=== PATIENT | male | born 1960 | race Caucasian/White ===

== ENCOUNTER 2023-05-11 08:28 | Outpatient (REF) | payer OTHER, SELFPAY ==
--- NOTE | ~2023-05-11 | XR_ITS ---
EXAMINATION: XR KNEE, LEFT XR KNEE AP STANDING CLINICAL INFORMATION: Pain. COMPARISON: None available. TECHNIQUE: Four views of the left knee. AP bilateral standing view of the knees was obtained. FINDINGS: The lateral and medial joint space compartment of the right knee are well-maintained. There is minimal peripheral osteophyte formation of the lateral right tibial plateau. The lateral, medial and patellofemoral joint space compartments of the left knee are well-maintained. There is are small peripheral osteophytes of the upper and lower articular surfaces of the patella. No fracture, dislocation or joint effusion is seen. There is no foreign body. No significant varus or valgus configuration is seen bilaterally. XR/XR knee standing BI IMPRESSION: 1. There is minimal osteoarthritic change of the lateral joint space compartment of the right knee. 2. There is mild osteoarthritic change of the left patellofemoral compartment. 3. No fracture or dislocation is seen. 4. There is no significant left knee joint effusion. 5. No significant varus or valgus configuration is seen bilaterally.
--- NOTE | ~2023-05-11 | XR_ITS ---
EXAMINATION: XR KNEE, LEFT XR KNEE AP STANDING CLINICAL INFORMATION: Pain. COMPARISON: None available. TECHNIQUE: Four views of the left knee. AP bilateral standing view of the knees was obtained. FINDINGS: The lateral and medial joint space compartment of the right knee are well-maintained. There is minimal peripheral osteophyte formation of the lateral right tibial plateau. The lateral, medial and patellofemoral joint space compartments of the left knee are well-maintained. There is are small peripheral osteophytes of the upper and lower articular surfaces of the patella. No fracture, dislocation or joint effusion is seen. There is no foreign body. No significant varus or valgus configuration is seen bilaterally. XR/XR knee LT 2V IMPRESSION: 1. There is minimal osteoarthritic change of the lateral joint space compartment of the right knee. 2. There is mild osteoarthritic change of the left patellofemoral compartment. 3. No fracture or dislocation is seen. 4. There is no significant left knee joint effusion. 5. No significant varus or valgus configuration is seen bilaterally.
== END 2023-05-11 08:29 | disposition home or self-care (01) ==
LOC: HO.HOSX 08:28
PROVIDERS: Visit Provider Orthopaedic Surgery
DX: M17.12 Unilateral primary osteoarthritis, left knee (principal)
CPT/HCPCS: 20610; 73560; 73565; J1100

== ENCOUNTER 2023-05-11 08:34 | Outpatient (AMB) | payer OTHER, SELFPAY ==
--- NOTE | 2023-05-11 08:24 | MHC.OFFVIS ---
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 Patient reports that his left knee has been bothering him for about the last 8-9 months. He explains that both of his knees are bothering him but left is worse than right. He was seen at [facility] about 3 months ago, where he had a cortisone injection done. This injections was not helpful. His pain is felt on the medial aspect of the knee. He feels popping, clicking and the knee is giving way. His primary concern is that the knee is giving out and causing falls. 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 He complains of pain with daily activity, localized to the medial aspect of his knee. His pain is worse with using stairs, and his knee occasionally gives way on him. He says he has fallen several times because of his knees. His most recent fall was ~2 months ago, and he says he fell while on the stairs, landing flat onto his knee. He says his pain has been present for ~9 months now in his left knee. His right knee pain started only a few months ago. He has been seen at the [facility] in 01/2023 for a left knee injection, which he says was not helpful. He was last seen ~6 years ago for adductor tendon injury in his left hip [facility] Social History (Updated 05/11/23 @ 08:48 by Delmi Mcwilliams [facility]) Patient Tobacco Use Status: Never used Tobacco Current occupational status: employed Current occupation: [employer] Review of Systems Const All systems reviewed & are unremarkable except as noted in HPI and below Physical Exam Const General: no acute distress, alert and awake Orientation/consciousness: patient oriented x3 HEENT Head: Yes normocephalic and Yes atraumatic Eyes EOM: EOMs intact bilaterally Resp Effort & Inspection: normal respiratory effort and able to speak in complete sentences Cardio Jugular venous distension: no JVD Skin General skin exam: turgor normal Rashes: no rashes Neuro General: patient oriented x3 Extrem Other: Left Knee: Mild effusion + Lana's TTP medial joint line Psych Appearance: grossly normal Affect: normal affect Attitude: cooperative Office Procedures Joint Injection/Drain Joint Injection/Drain Details: Injected 1 mL of Decadron and 3 mL 1% lidocaine and 3 mL of 0.25% Marcaine. Site was prepped using aseptic technique. Patient tolerated the procedure well. Primary Site: left knee Approach Used: anterolateral Coding 88759 - Large joint Procedure code (CPT) selection complete Results Reviewed Results Reviewed: 05/11/23 09:06 BUPivacaine MPF 0.25 % [Sensorcaine-MPF 0.25% 10 ML] 10 ml .ROUTE .STK-MED ONE Lidocaine HCl 2 % MPF [Xylocaine 2 % MPF] 5 ml .ROUTE .STK-MED ONE dexAMETHasone sod phosphate [Decadron] 4 mg .ROUTE .STK-MED ONE I personally reviewed relevant radiographs. Mild-moderate left knee tricompartmental OA Assessment & Plan Assessment & Plan (1) Osteoarthritis of left knee: Code(s): M17.12 - Unilateral primary osteoarthritis, left knee Plan: This is a 62 year old man with mil- moderate tricompartmental left knee OA on xray. Currnetly he has sweeling and catching and sharp medial sided knee pain that has not responded to injections, activity modification, NSAIDs. I recommend an MRI given his symptoms. He has pain with daily activity, worse with using stairs, and a hx of several falls from his knee giving way. He found no relief from injections at an outside clinic, ambulates with an assistive cane, and feels frustrated by his limitations . I discussed his diagnosis and treatment options. I injected his left knee today, which he tolerated well, and ordered an MRI. He will follow up when completed for review. (2) Left knee pain: Code(s): M25.562 - Pain in left knee Plan Scribed for Yusef Mckeon MD by Adams Foy, senior medical transcriptionist, on 05/11/23 at 9:05 AM, EST. Orders: Orders XR knee standing BI Today M25.569 - Pain in unspecified knee MR knee LT wo con Today M25.462 - Effusion, left knee XR knee LT 2V Today M25.569 - Pain in unspecified knee Coding Level of Care Code New Pt Level 4 (47579) Diagnoses Osteoarthritis of left knee M17.12 Left knee pain M25.562 CPT Codes Coding - 62727 Large joint: 24182 - Large joint ([id number])
== END 2023-05-11 09:27 | disposition home or self-care (01) ==
PROVIDERS: PCP Internal Medicine; Visit Provider Orthopaedic Surgery
DX: M17.12 Unilateral primary osteoarthritis, left knee (principal)
CPT/HCPCS: 20610; 99204

== ENCOUNTER 2023-05-26 10:46 | Outpatient (AMB) | payer OTHER, SELFPAY ==
--- NOTE | 2023-05-26 10:55 | A.OFFVIS_ITS ---
Intake Vital Signs 05/26/23 10:57 Height 5 ft 9 in Weight 235 lb BMI 34.7 Intake Visit Reasons: OV - Left Knee MRI Review Intake Note: Jason is a 62 year old male who presents today for an MRI review of his left knee. last injected on 05/11/23. Patient reports that his knee is feeling worse. Allergies acetaminophen [Percocet] Allergy (Unknown, Verified 05/26/23 10:56) Unknown oxycodone [Percocet] Allergy (Unknown, Verified 05/26/23 10:56) Unknown sulfa Allergy (Unknown, Uncoded 05/26/23 10:56) Unknown HPI OV - Left Knee MRI Review HPI Details Jason is a 62 year old man who presents for an MRI review of his left knee pain. He continues to complain of pain with daily activity, localized to the medial aspect of his knee. His pain is worse with using stairs, and his knee occasionally gives way on him. He says he has fallen several times because of his knees. His most recent fall was ~6 weeks ago, and he says he fell while on the stairs, landing flat onto his knee. He says his pain has been present since 03/2023. He found no relief from his prior injections and says his knee is now feeling worse . 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 Review of Systems Const All systems reviewed & are unremarkable except as noted in HPI and below Physical Exam Vital Signs: BMI result Body Mass Index 34.7 Const General: no acute distress, alert and awake Orientation/consciousness: patient oriented x3 HEENT Head: Yes normocephalic and Yes atraumatic Eyes EOM: EOMs intact bilaterally Resp Effort & Inspection: normal respiratory effort and able to speak in complete sentences Cardio Jugular venous distension: no JVD Skin General skin exam: turgor normal Rashes: no rashes Neuro General: patient oriented x3 Extrem Other: Left Knee: Mild effusion Sharp TTP over MFC Psych Appearance: grossly normal Affect: normal affect Attitude: cooperative Results Reviewed Results Reviewed: I personally reviewed relevant radiographs & MR images Mild-moderate left knee tricompartmental OA Medial corner medial femoral condyle subarticular fracture MCL proximal partial tear vs sprain Medial meniscus degeneration. No tear detected Full-thickness cartilage loss in the medial tibiofemoral and patellofemoral compartments Small joint effusion Assessment & Plan Assessment & Plan (1) Insufficiency fracture of medial condyle of femur: Code(s): M84.453A - Pathological fracture, unspecified femur, initial encounter for fra cture Plan: This is a 62 year old man with a left MFC insufficiency fracture in a setting of mild- moderate tricompartmental OA. He has swelling, catching, and sharp medial sided knee pain that has not responded to injections, activity modification, NSAIDs. He ambulates with an assistive cane, and feels frustrated by his limitations. I reviewed his MRI with him and discussed treatment options, including surgery. He will likely benefit from a TKA in the future, but this is currently not indicated. I recommend a left knee internal fixation and an unloading brace. I discussed the risks, benefits, and alternatives including, but not limited to, the risk of pain, infection, stiffness, need for further surgery as well as potential medical complications such as blood clots, pulmonary embolism and cardiac complications. I discussed the recovery timeline and process as well as the importance of PT. Jason is a good candidate for this surgery, and he wishes to proceed with this decision. He will speak with Dilcia to schedule this procedure. He wad given a medial unloading brace. (2) Osteoarthritis of left knee: Code(s): M17.12 - Unilateral primary osteoarthritis, left knee Plan Scribed for Yusef Mckeon MD by Adams Foy, medical scientific liaison, on 05/26/23 at 11:20 AM, EST. Coding Level of Care Code Est Pt Level 4 (20679) Diagnoses Insufficiency fracture of medial condyle of femur M84.453A Osteoarthritis of left knee M17.12
[2023-05-26 10:57] VITALS: BMI 34.7
== END 2023-05-26 11:25 | disposition home or self-care (01) ==
PROVIDERS: PCP Internal Medicine; Visit Provider Orthopaedic Surgery
DX: M84.452A Pathological fracture, left femur, initial encounter for fracture (principal); M17.12 Unilateral primary osteoarthritis, left knee
CPT/HCPCS: 99214

== ENCOUNTER → 2023-05-26 10:46 | Outpatient (BNVA) | payer OTHER, SELFPAY | PROVIDERS: PCP Internal Medicine; Visit Provider Orthopaedic Surgery ==

== ENCOUNTER 2023-06-14 10:43 | Day surgery (SDC) | payer OTHER, SELFPAY ==
--- NOTE | 2023-06-13 10:58 | HO.ANESPROP2 ---
Documented by User: Jennifer Almeida NP 06/13/23 10:59 HPI - Anesthesia Eval Consult details Narrative: 62yo M for Left Knee Arthroscopy Subchondroplasty PMFSH Active Problems Active Problems: All Active Problems (Updated 06/13/23 @ 10:00 by Pina Nash RN) Insufficiency fracture of medial condyle of femur (Acute) Left knee pain (Acute) Osteoarthritis of left knee (Acute) Past Medical History Medical History Hypothyroid HTN (hypertension) GERD (gastroesophageal reflux disease) Surgical History Surgical History (Updated 06/14/23 @ 10:56 by Delia Nettles RN) History of thyroid surgery Hx of elbow surgery S/P TURP (status post transurethral resection of prostate) History of carpal tunnel release Hx of neck surgery History of back surgery Social History (Updated 05/11/23 @ 08:48 by Delmi Mcwilliams CMA) Patient Tobacco Use Status: Never used Tobacco Current occupational status: employed 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 Allergies Allergy/AdvReac Type Severity Reaction Status Date / Time acetaminophen [Percocet] Allergy Unknown Unknown Verified 06/14/23 11:02 oxycodone [Percocet] Allergy Unknown Unknown Verified 06/14/23 11:02 sulfa Allergy Unknown Unknown Uncoded 06/14/23 11:02 Home Medications Medication Instructions Recorded Confirmed Last Taken Type allopurinol 300 mg tablet 300 mg PO DAILY 05/11/23 06/14/23 06/14/23 History amlodipine 5 mg-benazepril 10 mg 1 cap PO DAILY 05/11/23 06/14/23 06/14/23 History capsule fexofenadine 180 mg tablet 180 mg PO DAILY 05/11/23 06/14/23 06/14/23 History (Radha Allergy) ibuprofen 800 mg tablet 800 mg PO Q8H 05/11/23 06/14/23 06/11/23 History levothyroxine 200 mcg capsule 200 mcg PO DAILY 05/11/23 06/14/23 06/14/23 History nebivolol 20 mg tablet 20 mg PO DAILY 05/11/23 06/14/23 06/14/23 History omeprazole 40 mg capsule,delayed 40 mg PO DAILY 05/11/23 06/14/23 06/14/23 History release tramadol 50 mg tablet 50 mg PO DAILY 05/11/23 06/14/23 06/10/23 History Exam Exam Date and Time: June 13, [id number] Assessment and Plan Assessment Anesthesia Assessment: Chart Reviewed Documented by User: Jaxon Holman MD 07/06/23 18:10 [facility] Past Medical History Medical History Hypothyroid HTN (hypertension) GERD (gastroesophageal reflux disease) Functional capacity: uses cane/walker Family History Family history of problems with anesthesia: No Surgical History Surgical History (Updated 06/14/23 @ 10:56 by Delia Nettles RN) History of thyroid surgery Hx of elbow surgery S/P TURP (status post transurethral resection of prostate) History of carpal tunnel release Hx of neck surgery History of back surgery History of Problems with Anesthesia: No Social History (Updated 05/11/23 @ 08:48 by Delmi Mcwilliams CMA) Patient Tobacco Use Status: Never used Tobacco Current occupational status: employed 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 Allergies Allergy/AdvReac Type Severity Reaction Status Date / Time acetaminophen [Percocet] Allergy Unknown Unknown Verified 06/14/23 11:02 oxycodone [Percocet] Allergy Unknown Unknown Verified 06/14/23 11:02 sulfa Allergy Unknown Unknown Uncoded 06/14/23 11:02 Home Medications Medication Instructions Recorded Confirmed Last Taken Type allopurinol 300 mg tablet 300 mg PO DAILY 05/11/23 06/14/23 06/14/23 History amlodipine 5 mg-benazepril 10 mg 1 cap PO DAILY 05/11/23 06/14/23 06/14/23 History capsule fexofenadine 180 mg tablet 180 mg PO DAILY 05/11/23 06/14/23 06/14/23 History (Radha Allergy) ibuprofen 800 mg tablet 800 mg PO Q8H 05/11/23 06/14/2323 History levothyroxine 200 mcg capsule 200 mcg PO DAILY 05/11/23 06/14/23 06/14/23 History nebivolol 20 mg tablet 20 mg PO DAILY 05/11/23 06/14/23 06/14/23 History omeprazole 40 mg capsule,delayed 40 mg PO DAILY 05/11/23 06/14/23 06/14/23 History release tramadol 50 mg tablet 50 mg PO DAILY 05/11/23 06/14/23 06/10/23 History Exam Airway Mallampati Class: III Loose/Missing/Broken Teeth: Yes (poor dentition) Assessment and Plan Assessment Anesthesia Assessment: Anesthesia Plan Discussed Final Anesthetic Review Family History of Problems with Anesthesia: No History of Problems with Anesthesia: No NPO: Yes ASA Class: III Final Preanesthetic Review: Meds/Allgs Chart Reviewed, Consent Obtained/Reviewed and Anes Risks/Benef Reviewed Patient Risk: Intermediate Procedure Risk: Intermediate Assessment/Block/Sedation in SS: Assess/Block/Sedation-SS Anesthetic Plan Anesthetic Plan: GA, Regional Block and Agree w/ Assess. and Plan Disposition: Standard PACU
--- NOTE | ~2023-06-14 | FL_ITS ---
EXAMINATION: XR FLUOROSCOPY WITH IMAGES CLINICAL INFORMATION: Left knee some chondroplasty. COMPARISON: None available. TECHNIQUE: Fluoroscopy Supervised By: Dr. Yusef Mckeon. Fluoroscopy Time: 0.2 minutes. Cumulative Dose: 1.37 mGy. DAP: 0.0239 Gycm2. Images: 4. FINDINGS: Images demonstrate surgical instruments projecting over the medial femoral condyle. FL/FL guidance in OR IMPRESSION: Fluoroscopy guidance for orthopedic procedure.
[2023-06-14 10:45] VITALS: BMI 34.7
[2023-06-14] MEDS: Lactated Ringers 1,000 ML 100 ML IVCONT (11:08)
[2023-06-14 11:13] VITALS: BP 171/110; PULSE 71; RESP 16; TEMP 36.3; O2SAT 96
[2023-06-14 15:05] VITALS: BP 147/105; PULSE 79; RESP 15; TEMP 36.2; O2SAT 99
[2023-06-14 15:10] VITALS: BP 131/92; PULSE 85; RESP 20; O2SAT 95
[2023-06-14 15:15] VITALS: BP 143/94; PULSE 79; RESP 18; O2SAT 94
[2023-06-14 15:20] VITALS: BP 138/84; PULSE 80; RESP 16; TEMP 36.1; O2SAT 95
[2023-06-14 15:35] VITALS: PULSE 78; RESP 16; TEMP 36.1; O2SAT 95
--- NOTE | 2023-06-14 16:26 | P.BOP_ITS ---
Brief Operative Note Date of Service: 06/14/23 Pre-op diagnosis: Left knee medial femoral condyle insufficientcy fracture Left knee OA Post-op diagnosis: same Procedure: Internal fixation left MFC Implants: Subchondroplasty boyd PEARSON, Edward Surgeon: Yusef Mckeon MD Was an Solutions Market Consultant used for this Procedure?: Yes Solutions Market Consultant: Clara Back Estimated blood loss (mL): 10 Tourniquet time (min): 40 IV fluids (mL): 800 Pathology: none sent Condition: stable Disposition: PACU
--- NOTE | 2023-06-19 12:59 | W.PM.OPN ---
Operative Note Operative Note Date of Service: 06/14/23 Narrative: Date of Service: 06/14/23 Pre-op diagnosis: Left knee medial femoral condyle insufficiency fracture Left knee OA Post-op diagnosis: same Procedure: Internal fixation left MFC Implants: Subchondroplasty acufill BSM, Edward Surgeon: Yusef Mckeon MD Was an Swimming Pool Cleaner used for this Procedure?: Yes Swimming Pool Cleaner: Clara Back Estimated blood loss (mL): 10 Tourniquet time (min): 40 IV fluids (mL): 800 Pathology: none sent Condition: stable Disposition: PACU Patient was brought to the operating room placed supine on the arthroscopic table and prepped and draped in standard sterile fashion. A time-out was called to identify proper site proper procedure proper surgeon and IV antibiotics per weight were administered. I began by exsanguinating the limb and insufflating tourniquet to 300 mm Hg. Then made a standard anterolateral stab incision. The knee was insufflated with water and 30 degree arthroscope was placed. There was grade 1 fibrillations of the patella but overall suprapatellar pouch was plane and the gutters were clean. I descended into the medial compartment where I made my medial portal under direct visualization. There was were grade 3 and 4 changes medial femoral condyle and medial tibial. I used a combination shaver cautery to fragments and stabilize the damage. ACL was intact and need intervention. Therefore based the made a stab incision supra medially and placed Accufill trocar into the anterolateral aspect. Using biplanar fluoroscopy directed the trocar into the anteromedial most distal aspect of femoral at the location the subchondral insufficiency based on the pre operative MRI. I satisfiedwith the trochant position the acufill BSM was mixed on the back table. I then injected 3 mL into the MFC. The blush was seen plain films and I waited 10 minutes until the solution was dry. The trocar was then removed. There was no extravasation of BSM into the knee as verified by arthroscopic evaluation. Final biplanar radiographs were obtained I was satisfied with the location of the subchondroplasty. I then removed all instrumentation and closed the portals with skin glue. 25 mL of 2% Marcaine with epinephrine was injected into the joint and the surrounding soft tissues. Patient was then placed in sterile dressing extubated brought recovery room stable condition. There were no known complications.
== END 2023-06-14 16:20 | disposition home or self-care (01) ==
LOC: HO.SSS 10:43
PROVIDERS: PCP Internal Medicine; Visit Provider Orthopaedic Surgery
PROC: (CPT 0707T; principal; 2023-06-14 13:00)
DX: M84.352A Stress fracture, left femur, initial encounter for fracture (principal); M17.12 Unilateral primary osteoarthritis, left knee; I10 Essential (primary) hypertension; K21.9 Gastro-esophageal reflux disease without esophagitis; Z79.899 Other long term (current) drug therapy
CPT/HCPCS: 0707T; C1713; J0171; J0690; J1100; J2250; J2405; J2795; J3010

== ENCOUNTER → 2023-06-14 10:43 | Outpatient (BNV) | payer OTHER, SELFPAY | PROVIDERS: PCP Internal Medicine; Visit Provider Orthopaedic Surgery | DX: M84.462A Pathological fracture, left tibia, initial encounter for fracture (principal); M17.12 Unilateral primary osteoarthritis, left knee | CPT/HCPCS: 29855; 29877 ==

== ENCOUNTER 2023-06-20 13:02 | Outpatient (AMB) | payer OTHER, SELFPAY ==
--- NOTE | 2023-06-20 13:32 | A.OFFVIS_ITS ---
Intake Intake Visit Reasons: PO-Lt Knee w/Internal Fixation 06/14 NE Intake Note: Jason is a 62 year old male who presents today for a post op appointment s/p left knee w/ Internal Fixation 06/14/23 NE. Patient reports he is doing okay but having discomfort. Allergies acetaminophen [Percocet] Allergy (Unknown, Verified 06/14/23 11:02) Unknown oxycodone [Percocet] Allergy (Unknown, Verified 06/14/23 11:02) Unknown sulfa Allergy (Unknown, Uncoded 06/14/23 11:02) Unknown HPI PO-Lt Knee w/Internal Fixation 06/14 NE HPI Details 62-year-old male who presents in the off ice today 6 days status post left knee internal fixation left MFC, which was performed on 06/14/[address] Mckeon. The patient reports he is doing okay but does have some discomfort. 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 Sutures intact. ROM is 20-45 degrees. NVI. Assessment & Plan Assessment & Plan (1) Insufficiency fracture of medial condyle of femur: Code(s): M84.453A - Pathological fracture, unspecified femur, initial encounter for fracture (2) Osteoarthritis of left knee: Code(s): M17.12 - Unilateral primary osteoarthritis, left knee Plan Mr. Olea is a 62-year-old male who presents in the office today 6 days status post left knee internal fixation left MFC, which was performed on 06/14/[address] Mckeon. The patient reports he is doing okay but does have some discomfort. Sutures were removed and steri-stripes were applied. The patient may begin to weight bear as tolerated with the use of crutches. He may begin to wean off the crutches at this time. He will work with physical therapy on gentle ROM and weight bearing activities. I will send in a refill of his hydrocodone- acetaminophen 5-325 mg PO Q4-6H PRN. Follow up will be in [address] Mckeon, or sooner if needed. Orders: Orders PT Evaluation and Treatment Today M17.12 - Unilateral primary osteoarthritis, le ft knee, M25.562 - Pain in left knee, M84.453A - Pathological fracture, unspecified femur, initial encounter for fracture Medications: Changed From hydrocodone-acetaminophen 5-325 mg Partial Fill upon patient request. 1 tab PO Q4-6H 7 days PRN 42 tabs 0RF pain (scale score 4-6) To hydrocodone-acetaminophen 5-325 mg Partial Fill upon patient request. 2 tabs PO Q4-6H PRN 42 tabs 0RF pain (scale score 4-6) 7 days Patient Instructions: Scribed for Clara Back PA-C by Nupur Fatima manager medical, on 06/20/2023 at 1:40 pm, EST. Coding Level of Care Code Global (80618) Diagnoses Insufficiency fracture of medial condyle of femur M84.453A Osteoarthritis of left knee M17.12
== END 2023-06-20 13:53 | disposition home or self-care (01) ==
PROVIDERS: PCP Internal Medicine; Visit Provider Physician Assistant
DX: M84.453A Pathological fracture, unspecified femur, initial encounter for fracture (principal); M17.12 Unilateral primary osteoarthritis, left knee
CPT/HCPCS: 99024

== ENCOUNTER → 2023-06-20 13:02 | Outpatient (BNVA) | payer OTHER, SELFPAY | PROVIDERS: PCP Internal Medicine; Visit Provider Physician Assistant | DX: M84.453A Pathological fracture, unspecified femur, initial encounter for fracture (principal); M25.562 Pain in left knee; M17.12 Unilateral primary osteoarthritis, left knee ==

== ENCOUNTER 2023-07-12 12:00 | Outpatient (RCR) | payer OTHER, SELFPAY ==
--- NOTE | 2023-07-05 10:20 | MHC.PT.EP ---
[facility] [place] Office [place] Office [place] Office [address] Paty Sutton [address] [phone] F: [phone] F: [phone] F: [phone] F: [phone] Physical Therapy Plan of Care Date of Evaluation: 06/30/23 Date of Surgery: 06/14/23 Diagnosis: s/p L knee subchondroplasty Assessment: Pt is a 62yo male presenting 2 weeks s/p R knee surgery. Skilled PT indicated to reduce pain/edema, promote full knee AROM and strength, and maximize stability of knee to return to PLOF. Pt in agreement with POC and is motivated to return to work. Frequency and Duration: The patient will be seen 2x/week x 4 weeks Short Term Goals: 1. In 2 weeks patient will demonstrate full knee extension. 2. In 2 weeks, normal heel first initial contact ambulating with LRD. 3. In 2 weeks, increase knee flexion ROM to 120 degrees to improve ability to complete transfers. Medical Communication Specialist Goals: 1. Pt will be able to complete reciprocal pattern up and down 6 inch step. 2. In 4 weeks, patient will complete sit<>stand from 20 inch height chair without use of UE's, and equal use of LE's. 3. Improve score of LEFS by 15 points in 4 weeks, indicating improved functional mobility. Treatment Plan: Modalities to reduce pain, spasms and effusion. Manual therapy to restore motion and function. Therapeutic exercise to improve strength and flexibility. Neuromuscular re-education for posture and balance. Therapeutic activities to return to functional activities of daily living. Electronically signed by: Arabella Desouza PT, DPT Please sign and return to therapist. Thank you for your referral.
--- NOTE | 2023-09-12 11:03 | MHC.PT.DC ---
[facility] [place] Office [place] Office [place] Office [address] Paty Sutton [address] [phone] F: [phone] F: [phone] F: [phone] F: [phone] Physical Therapy Discharge Report Diagnosis: s/p L knee subchondroplasty Date of Surgery: 06/14/23 Date of Evaluation: 06/30/23 Date of Discharge: 09/12/23 Treatments to Date: 2 Cancellations to Date: 2 No Shows to Date: Discharge Status: Visit Non-compliance Discharge Summary: Pt referred to PT following L knee subchondroplasty. Pt's unable to climb stairs to be able to return to work. However, pt did not f/u with additional appointments after 2nd visit. D/C at this time due to attendance policy and loss of contact. Electronically signed by: Arabella Desouza PT, DPT Please sign and return to therapist. Thank you for your referral.
== END 2023-09-12 11:04 | disposition home or self-care (01) ==
LOC: HO.PT 12:00
PROVIDERS: PCP Internal Medicine; Visit Provider Physician Assistant
DX: M17.12 Unilateral primary osteoarthritis, left knee (principal); Z98.890 Other specified postprocedural states
CPT/HCPCS: 97110; 97116; 97162

== ENCOUNTER 2023-07-20 11:30 | Outpatient (AMB) | payer OTHER, SELFPAY ==
--- NOTE | 2023-07-20 11:33 | MHC.OFFVIS ---
Intake Vital Signs 07/20/23 11:35 Height 5 ft 9 in Weight 235 lb BMI 34.7 Intake Visit Reasons: PO-Lt Knee w/Internal Fixation 06/14 NE Intake Note: Jason is a 62 year old male who presents today for a post op appointment s/p left knee w/ Internal Fixation 06/14/23 NE. Patient reports that he is doing better today than it was over the last week. His grandson fell on the leg which has aggravated the pain. He is concerned that there is damage to the leg. Allergies acetaminophen [Percocet] Allergy (Unknown, Verified 06/14/23 11:02) Unknown oxycodone [Percocet] Allergy (Unknown, Verified 06/14/23 11:02) Unknown sulfa Allergy (Unknown, Uncoded 06/14/23 11:02) Unknown HPI PO-Lt Knee w/Internal Fixation 06/14 NE HPI Details Jason is a 62 year old man who presents ~5 weeks S/P left knee internal fixation C. He says he is doing well, but has some increased pain recently. He says his grandson fell onto his knee ~1 week ago, but his pain has been slowly improving with time. He says he was feeling well prior to this incident, and he has been attending PT. Now he has pain with walking when not using his crutches, so he continues to use them at this time. He has some concerns with his ability to perform daily activities still, including returning to work. He has been taking Ibuprofen. He complains of some right knee pain & weakness and would like an injection today if possible. [facility] Medical History Hypothyroid HTN (hypertension) GERD (gastroesophageal reflux disease) Surgical History (Updated 06/14/23 @ 10:56 by Delia Nettles RN) History of thyroid surgery Hx of elbow surgery S/P TURP (status post transurethral resection of prostate) History of carpal tunnel release Hx of neck surgery History of back surgery Social History (Updated 05/11/23 @ 08:48 by Delmi Mcwilliams CMA) Comment: . 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 Review of Systems Const All systems reviewed & are unremarkable except as noted in HPI and below Physical Exam Vital Signs: BMI result Body Mass Index 34.7 Const General: no acute distress, alert and awake Orientation/consciousness: patient oriented x3 HEENT Head: Yes normocephalic and Yes atraumatic Eyes EOM: EOMs intact bilaterally Resp Effort & Inspection: normal respiratory effort and able to speak in complete sentences Cardio Jugular venous distension: no JVD Skin General skin exam: turgor normal Rashes: no rashes Neuro General: patient oriented x3 Extrem Other: medial compartment ttp focal tenderness over MFC no effusion full rom Psych Appearance: grossly normal Affect: normal affect Attitude: cooperative Results Reviewed Results Reviewed: I personally reviewed relevant radiographs Mild-moderate left knee tricompartmental OA Assessment & Plan Assessment & Plan (1) Insufficiency fracture of medial condyle of femur: Code(s): M84.453A - Pathological fracture, unspecified femur, initial encounter for fracture Plan: Insufficiency fracture iof the MFC in the setting of moderate-severe knee OA. Subchondroplasty internal fixation so far has not been helpful although he feels he was improving until a recent injury when a grandchild jumped on his extended leg,. He uses one crutch when he leaves the house. I recommend PT for quad activation. Our goal is rtw in 6 weeks. (2) Osteoarthritis of left knee: Code(s): M17.12 - Unilateral primary osteoarthritis, left knee Plan Scribed for Yusef Mckeon MD by Adams Foy, medical health researcher, on 07/20/23 at 11:30 AM, EST. Coding Level of Care Code Global (51659) Diagnoses Insufficiency fracture of medial condyle of femur M84.453A Osteoarthritis of left knee M17.12
[2023-07-20 11:35] VITALS: BMI 34.7
== END 2023-07-20 12:04 | disposition home or self-care (01) ==
PROVIDERS: PCP Internal Medicine; Visit Provider Orthopaedic Surgery
DX: M84.453A Pathological fracture, unspecified femur, initial encounter for fracture (principal); M17.12 Unilateral primary osteoarthritis, left knee
CPT/HCPCS: 99024

== ENCOUNTER → 2023-07-20 11:30 | Outpatient (BNVA) | payer OTHER, SELFPAY | PROVIDERS: PCP Internal Medicine; Visit Provider Orthopaedic Surgery | DX: M84.452D Pathological fracture, left femur, subsequent encounter for fracture with routine healing (principal); M17.12 Unilateral primary osteoarthritis, left knee | CPT/HCPCS: J0665; J1100 ==

== ENCOUNTER 2023-08-31 10:06 | Outpatient (AMB) | payer OTHER, SELFPAY ==
--- NOTE | 2023-08-31 07:51 | A.OFFVIS_ITS ---
Intake Intake Visit Reasons: PO-Lt Knee w/Internal Fixation 06/14/23 NE Intake Note: Jason is a 62 year old male who presents today for a post op appointment s/p left knee w/ Internal Fixation 06/14/23 NE. Goal of RTW of next week. He feels some pain, he denies injury. Allergies acetaminophen [Percocet] Allergy (Unknown, Verified 08/31/23 10:26) Unknown oxycodone [Percocet] Allergy (Unknown, Verified 08/31/23 10:26) Unknown sulfa Allergy (Unknown, Uncoded 08/31/23 10:26) Unknown Medication List - Last Reconciled 08/31/23 by Aminata Peterson RN allopurinol 300 mg PO DAILY amlodipine-benazepril 5-10 mg 1 cap PO DAILY fexofenadine (Radha Allergy) 180 mg PO DAILY hydrocodone-acetaminophen 5-325 mg 2 tabs PO Q4-6H PRN 7 days ibuprofen 800 mg PO Q8H levothyroxine 200 mcg PO DAILY nebivolol 20 mg PO DAILY omeprazole 40 mg PO DAILY tramadol 50 mg PO DAILY HPI PO-Lt Knee w/Internal Fixation 06/14/23 NE HPI Details Jason is a 62 year old man who presents ~10 weeks S/P left knee internal fixation MFC. He says he is doing better than before, but he still has some occasional pain. he denies any new injury and says he is walking better than he was before as well. He continues to attend PT. He would like to discuss work restrictions, his goal was to RTW next week. Feels a little better than before surgery. Still with pain in medial side but not sharp. Wants to go back to work. Having difficultyu going up and down stairs [facility] Medical History Hypothyroid HTN (hypertension) GERD (gastroesophageal reflux disease) Surgical History (Updated 06/14/23 @ 10:56 by Delia Nettles RN) History of thyroid surgery Hx of elbow surgery S/P TURP (status post transurethral resection of prostate) History of carpal tunnel release Hx of neck surgery History of back surgery Social History (Updated 05/11/23 @ 08:48 by Delmi A Borsari, DIGITAL SALES ASSISTANT) Comment: . 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 Review of Systems Const All systems reviewed & are unremarkable except as noted in HPI and below Physical Exam Const General: no acute distress, alert and awake Orientation/consciousness: patient oriented x3 HEENT Head: Yes normocephalic and Yes atraumatic Eyes EOM: EOMs intact bilaterally Resp Effort & Inspection: normal respiratory effort and able to speak in complete sentences Cardio Jugular venous distension: no JVD Skin General skin exam: turgor normal Rashes: no rashes Neuro General: patient oriented x3 Psych Appearance: grossly normal Affect: normal affect Attitude: cooperative Office Procedures Joint Injection/Drain Joint Injection/Drain Details: Injected 1 mL of Decadron and 3 mL 1% lidocaine and 3 mL of 0.25% Marcaine. Site was prepped using aseptic technique. Patient tolerated the procedure well. Primary Site: left knee Approach Used: anterolateral Coding - Large joint Procedure code (CPT) selection complete Assessment & Plan Assessment & Plan (1) Insufficiency fracture of medial condyle of femur: Code(s): M84.453A - Pathological fracture, unspecified femur, initial encounter for fracture Plan: Doing well. Continue activity as tolerated. Wearing unloading brace which is helpful. May rtw without restrictions (2) Osteoarthritis of left knee: Code(s): M17.12 - Unilateral primary osteoarthritis, left knee Plan: Left knee steroid injection today. F/u as needed If injection not helpful will call and we can do gel. Plan Prepared for Yusef Mckeon MD by Adams Foy, medical support assistant, on 08/31/23 at 10:11 AM, EST. Coding Level of Care Code Global (59601) Diagnoses Insufficiency fracture of medial condyle of femur M84.453A Osteoarthritis of left knee M17.12 CPT Codes Coding - Large joint: 23415 - Large joint ([id number])
== END 2023-08-31 10:54 | disposition home or self-care (01) ==
PROVIDERS: PCP Internal Medicine; Visit Provider Orthopaedic Surgery
DX: M17.12 Unilateral primary osteoarthritis, left knee (principal); M84.453D Pathological fracture, unspecified femur, subsequent encounter for fracture with routine healing
CPT/HCPCS: 20610; 99024

== ENCOUNTER → 2023-08-31 10:06 | Outpatient (BNVA) | payer OTHER, SELFPAY | PROVIDERS: PCP Internal Medicine; Visit Provider Orthopaedic Surgery | DX: M17.12 Unilateral primary osteoarthritis, left knee (principal); M84.453D Pathological fracture, unspecified femur, subsequent encounter for fracture with routine healing | CPT/HCPCS: 20610; J0665; J1100 ==

== ENCOUNTER 2023-12-08 08:52 | Outpatient (REF) | payer OTHER, SELFPAY ==
--- NOTE | ~2023-12-08 | XR_ITS ---
EXAMINATION: XR KNEE, LEFT CLINICAL INFORMATION: Reason for Exam M25.569 - Pain in unspecified knee COMPARISON: Knee radiographs 05/03/2023 TECHNIQUE: 2 views of the left knee, one view of the bilateral knees standing FINDINGS: No acute fracture or dislocation. Moderate osteoarthritis of the left knee with loss of medial compartment joint space similar to prior and small patellofemoral compartment osteophytes with quadriceps tendon enthesopathy.. Mild osteoarthritis of the right knee with small lateral compartment osteophytes similar to prior. Small left joint effusion. Soft tissues are unremarkable. XR/XR knee LT 3V IMPRESSION: Moderate osteoarthritis of the left knee similar to prior. Small left joint effusion.
== END 2023-12-08 08:53 | disposition home or self-care (01) ==
LOC: HO.HOSX 08:52
PROVIDERS: Visit Provider Orthopaedic Surgery
DX: M17.12 Unilateral primary osteoarthritis, left knee (principal)
CPT/HCPCS: 20610; 73562; J0665; J1100

== ENCOUNTER 2023-12-08 09:04 | Outpatient (AMB) | payer OTHER, SELFPAY ==
--- NOTE | 2023-12-08 09:09 | MHC.OFFVIS ---
Vital Signs 12/08/23 09:10 Height 5 ft 9 in Weight 235 lb BMI 34.7 Intake Visit Reasons: ov-Lt Knee w/Internal Fixation 06/14/23 NE LVM Intake Note: Jason is a 62 year old male who presents today for a post op appointment s/p left knee w/ Internal Fixation 06/14/23 NE. At his last visit on 08/31/23 his left knee was injected, if it is not helpful we can consider gel. Patient reports that this last injection was note very helpful. He would like to know more about gel injections. Allergies acetaminophen [Percocet] Allergy (Unknown, Verified 12/08/23 09:10) Unknown oxycodone [Percocet] Allergy (Unknown, Verified 12/08/23 09:10) Unknown sulfa Allergy (Unknown, Uncoded 12/08/23 09:10) Unknown HPI HPI ov-Lt Knee w/Internal Fixation 06/14/23 NE LVM: Details: Jason is a 62 year old male who presents today for a post op appointment s/p left knee w/ Internal Fixation 06/14/23 NE. At his last visit on 08/31/23 his left knee was injected, if it is not helpful we can consider gel. Patient reports that this last injection was note very helpful. He would like to know more about gel injections. [facility] Medical History Hypothyroid HTN (hypertension) GERD (gastroesophageal reflux disease) Surgical History History of thyroid surgery Hx of elbow surgery S/P TURP (status post transurethral resection of prostate) History of carpal tunnel release Hx of neck surgery History of back surgery Social History Comment: . Patient Tobacco Use Status: Never used Tobacco Current occupational status: employed Current occupation: [employer] Physical Exam Vital Signs: BMI result Body Mass Index 34.7 Extrem Other: medial and anterior compartment ttp with mild effusion Office Procedures Joint Injection/Drain Joint Injection/Drain Details: Injected 1 mL of Decadron and 3 mL 1% lidocaine and 3 mL of 0.25% Marcaine. Site was prepped using aseptic technique. Patient tolerated the procedure well. Primary Site: left knee Approach Used: anterolateral Coding - Large joint Procedure code (CPT) selection complete Results Reviewed Results Reviewed: I personally reviewed relevant radiographs. Moderate tricompartmental left knee OA Assessment & Plan Assessment & Plan (1) Osteoarthritis of left knee: Code(s): M17.12 - Unilateral primary osteoarthritis, left knee Category: Medical Plan: I injected the left knee today. We discussed gel but steroid working for him. f/u 3 months Orders: Orders XR knee standing BI Today M25.569 - Pain in unspecified knee Coding Level of Care Code Est Pt Level 3 (96332) Diagnoses Osteoarthritis of left knee M17.12 CPT Codes Coding - Large joint: 52287 - Large joint ([id number])
[2023-12-08 09:10] VITALS: BMI 34.7
== END 2023-12-08 10:22 | disposition home or self-care (01) ==
PROVIDERS: PCP Internal Medicine; Visit Provider Orthopaedic Surgery
DX: M17.12 Unilateral primary osteoarthritis, left knee (principal)
CPT/HCPCS: 20610; 99213

== ENCOUNTER 2024-03-08 09:22 | Outpatient (AMB) | payer OTHER, SELFPAY ==
--- NOTE | 2024-03-08 09:30 | A.OFFVIS_ITS ---
Vital Signs 03/08/24 09:32 Height 5 ft 9 in Weight 235 lb BMI 34.7 Intake Visit Reasons: ov-Lt Knee injection-last inj. 12/08/23 Intake Note: Jason is a 62 year old male who presents today for a post op appointment s/p left knee w/ Internal Fixation 06/14/23 NE. At his last visit on 12/08/23 which he reports was mildly helpful. He is interested in repeating injection today. At this point he is just looking to push off surgery as long as possible Allergies acetaminophen [Percocet] Allergy (Unknown, Verified 03/08/24 09:34) Unknown oxycodone [Percocet] Allergy (Unknown, Verified 03/08/24 09:34) Unknown sulfa Allergy (Unknown, Uncoded 03/08/24 09:34) Unknown HPI HPI ov-Lt Knee injection-last inj. 12/08/23: Details: Jason is a 62 year old male who presents today for a post op appointment s/p left knee w/ Internal Fixation 06/14/23 NE. At his last visit on 12/08/23 which he reports was mildly helpful. He is interested in repeating injection today. At this point he is just looking to push off surgery as long as possible . [facility] Medical History Hypothyroid HTN (hypertension) GERD (gastroesophageal reflux disease) Surgical History History of thyroid surgery Hx of elbow surgery S/P TURP (status post transurethral resection of prostate) History of carpal tunnel release Hx of neck surgery History of back surgery Social History Comment: . Patient Tobacco Use Status: Never used Tobacco Current occupational status: employed Current occupation: [employer] Physical Exam Vital Signs: BMI result Body Mass Index 34.7 Extrem Other: medial and anterior compartment ttp with mild effusion Office Procedures Joint Injection/Drain Joint Injection/Drain Details: Injected 1 mL of Decadron and 3 mL 1% lidocaine and 3 mL of 0.25% Marcaine. Site was prepped using aseptic technique. Patient tolerated the procedure well. Primary Site: left knee Approach Used: anterolateral Coding - Large joint Procedure code (CPT) selection complete Assessment & Plan Assessment & Plan (1) Osteoarthritis of left knee: Code(s): M17.12 - Unilateral primary osteoarthritis, left knee Category: Medical Plan: I injected his left knee. He uses a cane to ambulate and has good and bad days. Wante to try to make it to next spring prior to TKA. F/u 3 mo Coding Level of Care Code Est Pt Level 3 (56205) Diagnoses Osteoarthritis of left knee M17.12 CPT Codes Coding - Large joint: 94991 - Large joint ([id number])
[2024-03-08 09:32] VITALS: BMI 34.7
== END 2024-03-08 09:57 | disposition home or self-care (01) ==
PROVIDERS: PCP Internal Medicine; Visit Provider Orthopaedic Surgery
DX: M17.12 Unilateral primary osteoarthritis, left knee (principal)
CPT/HCPCS: 20610; 99213

== ENCOUNTER → 2024-03-08 09:22 | Outpatient (BNVA) | payer OTHER, SELFPAY | PROVIDERS: PCP Internal Medicine; Visit Provider Orthopaedic Surgery | DX: M17.12 Unilateral primary osteoarthritis, left knee (principal) | CPT/HCPCS: 20610; J0665; J1100 ==

== ENCOUNTER 2024-06-14 09:18 | Outpatient (AMB) | payer OTHER, SELFPAY ==
[2024-06-14 09:20] VITALS: BMI 34.7
--- NOTE | 2024-06-14 09:20 | MHC.OFFVIS ---
Vital Signs 06/14/24 09:20 Height 5 ft 9 in Weight 235 lb BMI 34.7 Intake Visit Reasons: ov-Lt Knee injection-last inj. 03/08/24 Intake Note: Jason is a 62 year old male who presents today for a post op appointment s/p left knee w/ Internal Fixation 06/14/23. At his last visit on 03/08/24 his left knee was injected. This injection was mildly helpful, he would like to repeat injection today as he is trying to hold off on TKA until Spring. Allergies acetaminophen [Percocet] Allergy (Unknown, Verified 06/14/24 09:25) Unknown oxycodone [Percocet] Allergy (Unknown, Verified 06/14/24 09:25) Unknown sulfa Allergy (Unknown, Uncoded 06/14/24 09:25) Unknown HPI HPI ov-Lt Knee injection-last inj. 03/08/24: Details: Jason is a 62 year old male who presents today for a post op appointment s/p left knee w/ Internal Fixation 06/14/23. At his last visit on 03/08/24 his left knee was injected. This injection was mildly helpful, he would like to repeat injection today as he is trying to hold off on TKA until Spring. [facility] Medical History Hypothyroid HTN (hypertension) GERD (gastroesophageal reflux disease) Surgical History History of thyroid surgery Hx of elbow surgery S/P TURP (status post transurethral resection of prostate) History of carpal tunnel release Hx of neck surgery History of back surgery Social History Comment: . 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 Site was prepped using aseptic technique. Patient tolerated the procedure well. Approach Used: anterolateral Shoulders, Hips, Knees, Knee Large Joint Injection : Left Knee Coding Procedure code (CPT) selection complete Assessment & Plan Assessment & Plan (1) Osteoarthritis of left knee: Code(s): M17.12 - Unilateral primary osteoarthritis, left knee Category: Medical Plan: Injected left knee. F/u in August to discuss TKA. Sooner if wants gel Coding Level of Care Code Est Pt Level 3 (55740) Diagnoses Osteoarthritis of left knee M17.12 CPT Codes Shoulders, Hips, Knees, - Knee Large Joint Injection : Left Knee ([id number])
== END 2024-06-14 09:36 | disposition home or self-care (01) ==
LOC: HO.HOS 09:18
PROVIDERS: PCP Internal Medicine; Visit Provider Orthopaedic Surgery
DX: M17.12 Unilateral primary osteoarthritis, left knee (principal)
CPT/HCPCS: 20610; 99213

== ENCOUNTER → 2024-06-14 09:18 | Outpatient (BNVA) | payer OTHER, SELFPAY | PROVIDERS: PCP Internal Medicine; Visit Provider Orthopaedic Surgery | DX: M17.12 Unilateral primary osteoarthritis, left knee (principal) | CPT/HCPCS: 20610; J0665; J1100; J2003 ==

== ENCOUNTER 2024-09-13 09:08 | Outpatient (AMB) | payer OTHER, SELFPAY ==
--- NOTE | 2024-09-13 09:13 | MHC.OFFVIS ---
Intake Visit Reasons: OV-Lt Knee follow up Intake Note: Jason is a 62 year old male who presents today for a post op appointment s/p left knee w/ Internal Fixation 06/14/23. Last injection 06/14/2024. Patient reports that this injection was helpful for a few months. He reports that he would like to have the knee replaced but he is waiting until he has medicare - he would like to have TKA in December. He would like to repeat injection today. Allergies acetaminophen [Percocet] Allergy (Unknown, Verified 09/13/24 09:17) Unknown oxycodone [Percocet] Allergy (Unknown, Verified 09/13/24 09:17) Unknown sulfa Allergy (Unknown, Uncoded 09/13/24 09:17) Unknown HPI HPI OV-Lt Knee follow up: Details: Jason is 63-year-old gentleman with severe left knee osteoarthritis. He was hoping to get a repeat injection in his left knee today but I do not recommend that if he wants arthroplasty. We have discussed knee replacement in the past and I think he has clearly gotten to the point where he can walk normally and has pain constantly. I strongly recommended arthroplasty and he would like to proceed forward with that. The steroid injections have not been working and he has not benefitted from physical therapy or nonsteroidal anti-inflammatories. [facility] Medical History Hypothyroid HTN (hypertension) GERD (gastroesophageal reflux disease) Surgical History History of thyroid surgery Hx of elbow surgery S/P TURP (status post transurethral resection of prostate) History of carpal tunnel release Hx of neck surgery History of back surgery Social History Comment: . 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 He had a subchondroplasty about 2 years ago which was briefly helpful but for the most part his pain has continued. Steroid injections are no longer helpful. I think he might benefit from viscosupplementation I think it is reasonable to try. I do think he would benefit from knee arthroplasty and we will have him discuss this with our nurse navigator in terms of preoperative clearance and scheduling timeframes. Coding Level of Care Code Est Pt Level 4 (21092) Diagnoses Osteoarthritis of left knee M17.12
--- OUTSIDE RECORDS SUMMARY | 2024-09-13 09:34 | XMS_ITS | Clinical Summary ---
Author Organization [facility] 299 Formerly [facility] Address [address] [place] [address] Phone Care Team Providers Care Biodiesel Production Associate Name Role Phone Jayme Rai MD Primary Care Provider [phone] Allergies No known active allergies Medications Medication Sig Dispensed Refills Start Date End Date Status dicyclomine (BENTYL) 20 mg tabletIndications:Irr itable bowel syndrome, unspecified type Take 1 tablet (20 mg total) by mouth 4 (four) times a day (before meals and nightly). 120 each 3 06/25/2024 06/25/2025 Active amLODIPine (NORVASC) 10 mg tablet Take 10 mg by mouth daily. Active levothyroxine (TIROSINT) 200 mcg capsule Take by mouth. Active lisinopril (PRINIVIL,ZESTRIL) 40 mg tablet Take 40 mg by mouth daily. Active nebivoloL (BYSTOLIC) 20 mg tablet Take by mouth. Active omeprazole (PriLOSEC) [address] capsuleIndications:GE RD (gastroesophageal reflux disease) Take 1 capsule (20 mg total) by mouth 2 (two) times a day. 180 each 3 08/12/2024 08/12/2025 Active Encounters Date Type Department Care Team Description 08/08/2024 8:20 AM EST Office Visit Gastroenterology - [address] [place] [address] Marya Dawson, HIRED HAND Irritable bowel syndrome, unspecified type (Primary Dx); Umbilical hernia without obstruction and without gangrene from Last 3 Months Social History Tobacco Use Types Packs/Day Years Used Date Smoking Tobacco: Never Assessed Sex and Gender Information Value Date Recorded Sex Assigned at Not on file Gender Identity Not on file Sexual Orientation Not on file Job Start Date Occupation Industry Not on file Not on file Not on file Last Filed Vital Signs Vital Sign Reading Time Taken Comments Blood Pressure 140/80 03/19/2024 9:52 AM EDT Pulse 76 03/19/2024 9:52 AM EDT Temperature - - Respiratory Rate - - Oxygen Saturation - - Inhaled Oxygen Concentration - - Weight 103 kg (228 lb) 08/08/2024 8:12 AM EST Height 175.3 cm (5' 9 ) 08/08/2024 8:12 AM EST Body Mass Index 33.67 08/08/2024 8:12 AM EST Plan of Treatment Upcoming Encounters Date Type Department Care Team (Late st Contact Info) Description 09/20/2024 8:15 AM EST Consult General Surgery - [place] 175 [facility] [address] [place] [address] Meng Alvarado MD 175 [facility] [address] [place] [address] Health Maintenance Due Date Last Done Comments DTaP,Tdap,and Td Vaccines (1 - Tdap) 11/19/1978 Cholesterol Screening (Lipid Panel) 07/17/2022 Colorectal Cancer Screening: Colonoscopy 07/17/2022 Depression Screening 07/17/2022 HIV Screening 07/17/2022 Hepatitis C Screening 07/17/2022 Social Influencers of Health Screening 07/17/2022 RSV Immunization Patients 60+ Years Old (1 - 1-dose 75+ series) 11/19/2034 Zoster Vaccines Completed 08/22/2020, 06/04/2020 COVID-19 Vaccine Completed 05/19/2024, , 06/11/2022, Additional history exists Influenza Vaccine Completed 05/19/2024, , 06/11/2022, Additional history exists HIB Vaccines Aged Out No longer eligi ble based on patient's age to complete this topic HPV Vaccines Aged Out No longer eligi ble based on patient's age to complete this topic Hepatitis A Vaccines Aged Out No long er eligible based on patient's age to complete this topic Hepatitis B Vaccines Aged Out No long er eligible based on patient's age to complete this topic IPV Vaccines Aged Out No longer eligi ble based on patient's age to complete this topic MMR Vaccines Aged Out No longer eligi ble based on patient's age to complete this topic Meningococcal ACWY Vaccine Aged Out N o longer eligible based on patient's age to complete this topic Pneumococcal Vaccine: Pediatrics (0 to 5 Years) and At-Risk Patients (6 to 64 Years) Aged Out No longer eligible based on patient's age to complete this topic RSV Immunization Patients Under 20 months Aged Out No longer eligible based on patient's age to complete this topic Varicella Vaccines Aged Out No longer eligible based on patient's age to complete this topic Care Teams Biodiesel Production Associate Relationship Specialty Start Date End Date Jayme Rai MD PCP - General Internal Medicine 07/07/20
== END 2024-09-13 09:42 | disposition home or self-care (01) ==
PROVIDERS: PCP Internal Medicine; Visit Provider Orthopaedic Surgery
DX: M17.12 Unilateral primary osteoarthritis, left knee (principal)
CPT/HCPCS: 99214

== ENCOUNTER → 2024-09-20 09:45 | Outpatient (AMB) | END | disposition home or self-care (01) | CPT/HCPCS: 20610 ==

== ENCOUNTER → 2024-09-20 09:45 | Outpatient (BNVA) | payer OTHER, SELFPAY | PROVIDERS: PCP Internal Medicine; Visit Provider Physician Assistant | DX: M17.12 Unilateral primary osteoarthritis, left knee (principal) | CPT/HCPCS: 20610; J7323 ==

== ENCOUNTER 2024-09-27 12:22 | Outpatient (AMB) | payer OTHER, SELFPAY ==
--- NOTE | 2024-09-27 12:28 | MHC.OFFVIS ---
Vital Signs 09/27/24 12:45 Height 5 ft 9 in Weight 235 lb BMI 34.7 Intake Visit Reasons: INJ- Left Knee Euflexxa #2 Intake Note: Jason is a 63 year old male who presents today for a left knee Euflexxa #2. Patient reports no change in his pain. Allergies acetaminophen [Percocet] Allergy (Unknown, Verified 09/27/24 12:41) Unknown oxycodone [Percocet] Allergy (Unknown, Verified 09/27/24 12:41) Unknown sulfa Allergy (Unknown, Uncoded 09/20/24 10:01) Unknown HPI HPI INJ- Left Knee Euflexxa #2: Details: 63-year-old returns to the office today for his 2nd Euflexxa left knee. [facility] Medical History Hypothyroid HTN (hypertension) GERD (gastroesophageal reflux disease) Surgical History History of thyroid surgery Hx of elbow surgery S/P TURP (status post transurethral resection of prostate) History of carpal tunnel release Hx of neck surgery History of back surgery Social History Comment: . Patient Tobacco Use Status: Never used Tobacco Current occupational status: employed Current occupation: [employer] Review of Systems Const All systems reviewed & are unremarkable except as noted in HPI and below Physical Exam Vital Signs: BMI result Body Mass Index 34.7 Extrem Other: medial and anterior compartment ttp with mild effusion Office Procedures AMB Joint Injection/Aspiration Joint Injection/Aspiration Details: Left knee Euflexxa Primary Site: left knee Prep: site was prepped using aseptic technique, ethochloride spray was applied and injection warnings given Injected: in the joint Approach Used: anterolateral Procedure: The patient tolerated the procedure well Coding 79922 - Glenohumeral/Tronchanteric Bursa/Intraarticular Procedure code (CPT) selection complete Assessment & Plan Assessment & Plan (1) Osteoarthritis of left knee: Code(s): M17.12 - Unilateral primary osteoarthritis, left knee Category: Medical Plan: Second Euflexxa left knee given today which the patient tolerated it well. He will rest ice and use anti-inflammatories as needed and return in 1 week for injection 3. Coding Level of Care Code Procedure Only Diagnoses Osteoarthritis of left knee M17.12 CPT Codes Coding - Joint 7: 48335 - Glenohumeral/Tronchanteric Bursa/Intraarticular ([id number])
[2024-09-27 12:45] VITALS: BMI 34.7
--- OUTSIDE RECORDS SUMMARY | 2024-09-27 12:50 | XMS_ITS | Encounter Summary ---
Author Organization [facility] Address [address] [place] [address] Care Team Providers Care Linen Grader Name Role Phone Jayme Rai MD Primary Care Provider [phone] Reason for Visit * Reason Comments Advice Only Umbilical hernia * Consultation (Routine) - Closed Specialty Diagnoses / Procedures Referred By Ruy crandall Referred To Contact General Surgery Diagnoses Umbilical hernia without obstruction and without gangrene Marya Dawson, KNOWLEDGE ENGINEER [address] [address] Phone: tel: fax: Meng Alvarado MD [address] [address] Phone: tel: fax: Referral ID Status Reason Start Date Expiration Date V isits Requested Visits Authorized [id number] Closed Specialty Services Required 08/08/2024 08/08/2025 1 1 Encounter Details Date Type Department Care Team (Late st Contact Info) Description 09/20/2024 8:15 AM EST Consult General Surgery - [place] [address] [address] Meng Alvarado MD [address] [place] [id number] Umbilical hernia without obstruction and without gangrene Social History Tobacco Use Types Packs/Day Years Used Date Smoking Tobacco: Never Assessed Tobacco Cessation:Counseling Given: Not Answered Alcohol Use Standard Drinks/Week Comments Never 0 (1 standard drink = 0.6 oz pur e alcohol) Sex and Gender Information Value Date Recorded Sex Assigned at Not on file Legal Sex Male 3:37 AM EST Gender Identity Not on file Sexual Orientation Not on file documented as of this encounter Last Filed Vital Signs Vital Sign Reading Time Taken Comments Blood Pressure 142/88 09/20/2024 8:08 AM EST Pulse 60 09/20/2024 8:08 AM EST Temperature 36.2 ??C (97.1 ??F) 09/20/2024 8:08 AM ES T Respiratory Rate - - Oxygen Saturation - - Inhaled Oxygen Concentration - - Weight 110 kg (242 lb 8 oz) 09/20/2024 8:[address] Height 175.3 cm (5' 9 ) 09/20/2024 8:08 AM EST Body Mass Index 35.81 09/20/2024 8:08 AM EST documented in this encounter Progress Notes * Meng Alvarado MD - 09/20/2024 8:15 AM EST Referring MD:Marya Dawson, KNOWLEDGE ENGINEER Jason Olea is a 63 y.o. year old male who presents for outpatient consultation regarding the management of an incisional hernia related to extraction site from previous robotic prostatectomy, just above the umbilicus, surgery 6 or 8 years ago. It does not reduce, hurts more depending on his acti vities, no sign of bowel involvement. He has not had previous hernia repairs, no strong family tendency. In terms of risk factors for hernia he does not have constipation, chronic cough, non-smoker, work is active but not terribly strenuous. ROS: GENERAL: No malaise, significant weight loss or fever RESPIRATORY: No cough, wheezing or shortness of breath CARDIOVASCULAR: No chest pain, leg swelling or palpitations GI: No blood in stools or black stools MUSCULOSKELETAL: Awaiting left TKR; recent fall with fracture apparently in the joint SKIN: No lesions, rash or itching HEMATOLOGY/LYMPHOLOGY No prolonged bleeding, easy bruisability or swollen nodes PAST MEDICAL HISTORY: Hypertension, hypothyroidism, GERD, IBS PAST SURGICAL HISTORY: No past surgical history on file. SOCIAL HISTORY: Social History Tobacco Use Smoking status: Not on file Smokeless tobacco: Not on file Substance Use Topics Alcohol use: Never FAMILY HISTORY: No family history on file. No family status information on file. ACTIVE MEDICATIONS: Outpatient Medications Marked as Taking for the 09/20/24 encounter (Consult) with Meng Alvarado MD Medication Sig Dispense Refill amLODIPine (NORVASC) 10 mg tablet Take 10 mg by mouth daily. dicyclomine (BENTYL) 20 mg tablet Take 1 tablet (20 mg total) by mouth 4 (four) times a day (beforemeals and nightly). 120 each 3 levothyroxine (TIROSINT) 200 mcg capsule Take by mouth. nebivoloL (BYSTOLIC) 20 mg tablet Take by mouth. omeprazole (PriLOSEC) [address] capsule Take 1 capsule (20 mg total) by mouth 2 (two) times a day. 180 each 3 ALLERGIES: Allergies Allergen Reactions Oxycodone-Acetaminophen Headache Sulfadiazine PHYSICAL EXAM: Visit Vitals BP (!) 142/88 (BP Location: Left arm, Patient Position: Sitting, BP Cuff Size: Large adult) Pulse 60 Temp 36.2 ??C (97.1 ??F) (Temporal) Ht 1.753 m (69 ) Wt 110 kg (242 lb 8 oz) BMI 35.81 kg/m?? Smoking Status Never Assessed BSA 2.24 m?? Pleasant well nourished , well developed white male in no acute distress. His sclera are non-icteric. His pupils are round. His extraocular muscles are grossly intact. His lungs are clear. His heart has a regular rate and rhythm. There is no suspicious cervical adenopathy. There is no obvious neck mass. His abdomen is non-tender. Incarcerated fat-containing incisional hernia cephalad to the umbilicus. Fascial defect cannot be appreciated, estimate less than 3 cm. There is no apparent organomegaly. His skin is warm without obvious cancers or lesions in the limited area seen. He is alert and oriented to time and place and reason for this consultation. LABS: No results found for: WBC , HGB , HCT , MCV No results found for: NA , K , CO2 , CL , BUN , GLU , ALB , ALKPHOS , TP IMAGING: None IMPRESSION: 1. Umbilical hernia without obstruction and without gangrene Plan: He anticipates having the left knee replacement [place] [facility] with Dr. Mckeon this coming December and was told that he should be free to pursue repair of this incisional hernia perhaps 6 weeks afterwards. We will tentatively get him scheduled for late January. Follow-up 2 weeks out if all goes well. Informed consent was obtained for repair of a ventral or incisional hernia.The various techniques, including the lap-assisted, laparoscopic, and open, were discussed and the reasons for the choice oftechnique we decided upon were made clear. Risks include, but are not limited to, bleeding, infection, infection of the mesh requiring further treatment or removal, injury to abdominal organs, conversion to open surgery, significant or persistent discomfort, recurrent hernias, and more general perioperative complications such as blood clots, atelectasis or pneumonia, heart attack or stroke, and even . The patient had their questions answered to the best of my ability. Medication and lab orders: No orders of the defined types were placed in this encounter. Other orders: documented in this encounter Plan of Treatment Scheduled Procedures Name Priority Associated Diagnoses Date/Ti me REPAIR HERNIA INCISIONAL Umbilical hernia without obstruction and without gangrene documented as of this encounter Visit Diagnoses Diagnosis Umbilical hernia without obstruction and without gangrene documented in this encounter Orders Outpatient Referral Count Last Ordered Date Fir st Ordered Date AMB REFERRAL TO GENERAL SURGERY 1 Case Request Count Last Ordered Date First Orde red Date CASE REQUEST OPERATING ROOM 1 09/20/2024 documented in this encounter Care Teams Linen Grader Relationship Specialty Start Date End Date Jayme Rai MD [address] [place] [address] PCP - General Internal Medicine 09/20/24 documented as of this encounter
--- OUTSIDE RECORDS SUMMARY | 2024-09-27 12:50 | XMS_ITS | Clinical Summary ---
Author Organization [address] Address [address] [place] [address] Phone Care Team Providers Care Seed Specialist Name Role Phone Jayme Rai MD Primary Care Provider [phone] Allergies Active Allergy Reactions Criticality Noted Date Comments Oxycodone-Acetaminophen Headache 09/20/2024 Sulfadiazine 09/20/2024 Medications dicyclomine (BENTYL) 20 mg tabletIndication s:Irritable bowel syndrome, unspecified type Take 1 tablet (20 mg total) by mouth 4 (four) times a day (before meals and nightly). 120 each 3 06/25/2024 06/25/20 25 Active amLODIPine (NORVASC) 10 mg tablet Take 10 mg by mouth daily. Active levothyroxine (TIROSINT) 200 mcg capsule Take by mouth. Active lisinopril (PRINIVIL,ZESTRI L) 40 mg tablet Take 40 mg by mouth daily. Active nebivoloL (BYSTOLIC) 20 mg tablet Take by mouth. Active omeprazole (PriLOSEC) [address] capsuleIndicatio ns:GERD (gastroesophagea l reflux disease) Take 1 capsule (20 mg total) by mouth 2 (two) times a day. 180 each 3 08/12/2024 08/12/20 25 Active Active Problems Problem Noted Date Diagnosed Date Umbilical hernia without obstruction and without gangrene 09/20/2024 Encounters Date Type Department Care Team Description 09/20/2024 8:15 AM EST Consult General Surgery [facility] 175 [facility] [address] [place] [address] Meng Alvarado MD Umbilical hernia without obstruction and without gangrene 08/08/2024 8:20 AM EST Office Visit Gastroenterology - [address] [facility] [address] [place] [address] Marya Dawson, EVITA Irritable bowel syndrome, unspecified type (Primary Dx); [...] on file Sexual Orientation Not on file Obstetrics History Last Filed Vital Signs Vital Sign Reading [...] Mass Index 35.81 09/20/2024 8:08 AM EST Plan of Treatment Scheduled Procedures Name Priority Associated Diagnoses Date/Ti me REPAIR HERNIA INCISIONAL Umbilical hernia without obstruction and without gangrene Health Maintenance Due Date Last Done Comments DTaP,Tdap,and Td Vaccines (1 - Tdap) 11/19/1978 Pneumococcal Vaccine: 50+ Years (1 of 1 - PCV) 11/19/2009 Cholesterol Screening (Lipid Panel) 07/17/2022 Colorectal Cancer [...] patient's age to complete this topic Meningococcal B Vacine Aged Out No lo nger eligible based on patient's age to complete [...] on patient's age to complete this topic Insurance [facility] Care Teams Seed Specialist Relationship Specialty Start Date End Date Jayme Rai MD [address] [place] [id number] PCP - General Internal Medicine 09/20/24
== END 2024-09-27 12:49 | disposition home or self-care (01) ==
PROVIDERS: PCP Internal Medicine; Visit Provider Physician Assistant
DX: M17.12 Unilateral primary osteoarthritis, left knee (principal)
CPT/HCPCS: 20610

== ENCOUNTER → 2024-09-27 12:22 | Outpatient (BNVA) | payer OTHER, SELFPAY | PROVIDERS: PCP Internal Medicine; Visit Provider Physician Assistant | DX: M17.12 Unilateral primary osteoarthritis, left knee (principal) | CPT/HCPCS: 20610; J7323 ==

== ENCOUNTER 2024-10-02 09:17 | Outpatient (AMB) | payer OTHER, SELFPAY ==
--- NOTE | 2024-10-02 09:22 | A.OFFVIS_ITS ---
Vital Signs 10/02/24 09:26 Height 5 ft 9 in Weight 235 lb BMI 34.7 Intake Visit Reasons: INJ- Left Knee Euflexxa #3 Intake Note: Jason is a 63 year old male who presents today for a left knee Euflexxa #3. Allergies acetaminophen [Percocet] Allergy (Unknown, Verified 10/02/24 09:26) Unknown oxycodone [Percocet] Allergy (Unknown, Verified 10/02/24 09:26) Unknown sulfa Allergy (Unknown, Uncoded 09/20/24 10:01) Unknown HPI HPI INJ- Left Knee Euflexxa #3: Details: Mr. Olea is a 63-year-old male who presents to the office today for left knee Euflexxa 3. Injection. [facility] Medical History Hypothyroid HTN (hypertension) GERD (gastroesophageal reflux disease) Surgical History History of thyroid surgery Hx of elbow surgery S/P TURP (status post transurethral resection of prostate) History of carpal tunnel release Hx of neck surgery History of back surgery Social History Comment: . Patient Tobacco Use Status: Never used Tobacco Current occupational status: employed Current occupation: [employer] Review of Systems Const All systems reviewed & are unremarkable except as noted in HPI and below Physical Exam Vital Signs: BMI result Body Mass Index 34.7 Extrem Other: medial and anterior compartment ttp with mild effusion Office Procedures AMB Joint Injection/Aspiration Joint Injection/Aspiration Primary Site: left knee Prep: site was prepped using aseptic technique, ethochloride spray was applied and injection warnings given Injected: in the joint (Euflexxa 3.) Approach Used: anterolateral Procedure: The patient tolerated the procedure well, but had some pain with the injection and there was some relief with the local anesthesia Coding 98498 - Large joint Procedure code (CPT) selection complete Assessment & Plan Assessment & Plan (1) Osteoarthritis of left knee: Code(s): M17.12 - Unilateral primary osteoarthritis, left knee Category: Medical Plan: The patient was offered the Euflexxa #3 injection in the left knee. The patient was explained the risks, benefits, and alternatives to receiving this injection. After receiving consent for the injection, the patient had the procedure done while in the office today. The patient tolerated the procedure well with no complications. Follow-up will be p.r.n., or sooner if needed Of note, the patient would like to discuss further joint replacement. I will send a workload message to our nurse navigator to reach out to the patient for further discussion. Coding Level of Care Code Procedure Only Diagnoses Osteoarthritis of left knee M17.12 CPT Codes Coding - 51203 Large joint: 85827 - Large joint ([id number])
[2024-10-02 09:26] VITALS: BMI 34.7
--- OUTSIDE RECORDS SUMMARY | 2024-10-02 09:29 | XMS_ITS | Encounter Summary ---
Author Organization [facility] Address [address] [place] [address] Care Team Providers Care Furniture Lumber Production Worker Name Role Phone Jayme Rai MD Primary Care Provider [phone] Reason for Visit * Reason Comments Advice Only Umbilical hernia * Consultation (Routine) - Closed Specialty Diagnoses / Procedures Referred By Ruy crandall Referred To Contact General Surgery Diagnoses Umbilical hernia without obstruction and without gangrene Marya Dawson, HAND TUBE BENDER [address] [address] Phone: tel: fax: Meng Alvarado MD [address] [address] Phone: tel: fax: Referral ID Status Reason Start Date Expiration Date V isits Requested Visits Authorized [id number] Closed Specialty Services Required 08/08/2024 08/08/2025 1 1 Encounter Details Date Type Department Care Team (Late st Contact Info) Description 09/20/2024 8:15 AM EST Consult General Surgery - [place] [address] [address] Meng Alvarado MD [address] [place] [address] Umbilical hernia without obstruction and without gangrene [...] 09/20/2024 8:15 AM EST Referring MD:Marya Dawson, HAND TUBE BENDER Jason Olea is a 63 y.o. year [...] anticipates having the left knee [place] [facility] [place] Mckeon this coming December and [...] 09/20/2024 documented in this encounter Care Teams Furniture Lumber Production Worker Relationship Specialty Start Date End Date Jayme Rai MD [address] [place] [address] PCP - General Internal Medicine 09/20/24 documented as of this encounter
--- OUTSIDE RECORDS SUMMARY | 2024-10-02 09:29 | XMS_ITS | Clinical Summary ---
Author Organization [address] Address [address] [place] [address] Phone Care Team Providers Care Diamond Cleaver Name Role Phone Jayme Rai MD Primary Care Provider Allergies Active Allergy Reactions Criticality Noted Date [...] 09/20/2024 8:15 AM EST Consult General Surgery [facility] 175 [facility] [address] [place] [address] Meng Alvarado MD Umbilical hernia without obstruction and without gangrene 08/08/2024 8:20 AM EST Office Visit Gastroenterology - [address] [facility] [address] [place] [address] Marya Dawson, EVITA Irritable bowel [...] patient's age to complete this topic Insurance [facility] Care Teams Diamond Cleaver Relationship Specialty Start Date End Date Jayme Rai MD [address] [place] [phone] PCP - General Internal Medicine 09/20/24
== END 2024-10-02 09:43 | disposition home or self-care (01) ==
PROVIDERS: PCP Internal Medicine; Visit Provider Physician Assistant
DX: M17.12 Unilateral primary osteoarthritis, left knee (principal)
CPT/HCPCS: 20610

== ENCOUNTER → 2024-10-02 09:17 | Outpatient (BNVA) | payer OTHER, SELFPAY | PROVIDERS: PCP Internal Medicine; Visit Provider Physician Assistant | DX: M17.12 Unilateral primary osteoarthritis, left knee (principal) | CPT/HCPCS: 20610; J7323 ==

== ENCOUNTER → 2024-12-13 08:41 | Outpatient (BNVA) | payer MEDICARE, SELFPAY | PROVIDERS: PCP Internal Medicine | DX: Z01.818 Encounter for other preprocedural examination (principal) ==

== ENCOUNTER 2025-01-09 14:51 | Outpatient (REF) | payer MEDICARE, SELFPAY | END 2025-01-09 14:52 | disposition home or self-care (01) | LOC: HO.LAB 14:51 | PROVIDERS: PCP Internal Medicine; Visit Provider Physician Assistant | DX: Z01.818 Encounter for other preprocedural examination (principal); M17.12 Unilateral primary osteoarthritis, left knee; Z85.46 Personal history of malignant neoplasm of prostate | CPT/HCPCS: 99212 ==

== ENCOUNTER 2025-01-09 14:51 | Outpatient (AMB) | payer MEDICARE, SELFPAY ==
--- NOTE | 2025-01-09 15:04 | A.OFFVIS_ITS ---
Vital Signs 01/09/25 15:06 Height 5 ft 9 in Weight 235 lb BMI 34.7 Intake Visit Reasons: Pre-Op: L TKA w/NE 01/14/25 Intake Note: Jason is a 64 year old male who presents today for a preoperative LT TKA on 01/14/[address] Mckeon. Pain managment agreement reviewed and signed. Allergies oxycodone [Percocet] Allergy (Unknown, Verified 01/09/25 15:05) Unknown sulfa Allergy (Unknown, Uncoded 01/09/25 15:05) Unknown HPI Comments Details: Mr Olea presents to the office today for preop visit. He is scheduled for left total knee arthroplasty with Dr. Mckeon. He continues to have ongoing pain and difficulty with ambulation in the left knee, which is affecting his quality of life; therefore, he has elected to move forward with surgery. He lives at home with his He does have a walker for post op use H/o Prostate cancer [facility] Medical History (Updated 12/17/24 @ 10:19 by Suzanne Lawrence RN) Abdominal hernia Back pain Cervical radiculopathy IBS (irritable bowel syndrome) Prostate cancer Thyroid disease Papillary thyroid carcinoma DJD (degenerative joint disease) Pulmonary nodule Kidney stones History of headache Gout Asthma Hypothyroid HTN (hypertension) GERD (gastroesophageal reflux disease) Surgical History Hx of foot surgery Hx of arthroscopy of left knee H/O colonoscopy History of prostatectomy History of thyroid surgery Hx of elbow surgery S/P TURP (status post transurethral resection of prostate) History of carpal tunnel release Hx of neck surgery History of back surgery Social History Are you a primary care navigator to a significant other at home: No Do you presently have visiting nurse or other home services: No Comment: . 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 Review of Systems Const All systems reviewed & are unremarkable except as noted in HPI and below Physical Exam Vital Signs: BMI result Body Mass Index 34.7 Const General: cooperative, healthy appearing, comfortable, no acute distress, well developed and alert Orientation/consciousness: patient oriented x3 HEENT Head: Yes normal to inspection, Yes normocephalic and Yes atraumatic Eyes General: appearance normal, both eyes and all related structures Neck Neck: Yes normal visual inspection and Yes no lymphadenopathy Resp Effort & Inspection: normal respiratory effort and able to speak in complete sentences Cardio Rate: regular rate Peripheral pulses: Peripheral pulses 2+ throughout GI Inspection: Yes normal to inspection Palpation (GI): Soft to palpation Skin General skin exam: no rashes or lesions noted Neuro General: patient oriented x3 Extrem Other: Left knee skin intact. Full ROM. medial and anterior compartment ttp with mild effusion Psych Appearance: grossly normal Mental Status: mental status grossly normal Assessment & Plan Assessment & Plan (1) Osteoarthritis of left knee: Code(s): M17.12 - Unilateral primary osteoarthritis, left knee Category: Medical Plan: I discussed in detail the procedure and what to expect pre and post operatively. We discussed the risks, benefits and alternatives to the surgery as well as the rehabilitation course. The risks; which include, but are not limited to infection, bleeding, nerve injury, ongoing pain, swelling, and stiffness, perioperative risk of injury to bones and soft tissues, and blood clots. I?ve answered all questions and with their understanding they have consented to move forward with Left total knee arthroplasty with Dr. Mckeon The plan is for him to be discharged home with VNA services An order for physical therapy has been placed and he will contact the facility to make an appointment to begin after his 1st postop appointment Due to his history of prostate cancer and his allergy to sulfa he will be placed on Lovenox postop He states his interaction with Percocet was a severe headache. We will try oxycodone postop. Orders: Orders Basic Metabolic Panel Today Z01.818 - Encounter for other preprocedural examination Complete Blood Count Auto Diff Today Z01.818 - Encounter for other preprocedural examination Type and Screen Today Z01.818 - Encounter for other preprocedural examination Coding Level of Care Code Est Pt Level 3 (43885) Complex EM visit Add On G2211 Diagnoses Osteoarthritis of left knee M17.12
[2025-01-09 15:06] VITALS: BMI 34.7
== END 2025-01-09 15:57 | disposition home or self-care (01) ==
LOC: HO.HOS 14:52
PROVIDERS: PCP Internal Medicine; Visit Provider Physician Assistant
DX: M17.12 Unilateral primary osteoarthritis, left knee (principal)
CPT/HCPCS: 99024

== ENCOUNTER 2025-01-14 05:55 | Day surgery (SDC) | payer MEDICARE, SELFPAY ==
--- OUTSIDE RECORDS SUMMARY | 2024-11-29 11:01 | XMS_ITS | Clinical Summary ---
Author Organization [facility] Address [address] [place] [address] Phone Care Team Providers Care Media Marketing Specialist Name Role Phone Jayme Rai MD Primary Care Provider [phone] Allergies Active Allergy Reactions Criticality Noted Date Comments Oxycodone-Acetaminophen Headache 09/20/2024 Sulfadiazine 09/20/2024 Medications amLODIPine (NORVASC) 10 mg tablet Take 10 mg by mouth daily. Active levothyroxine (TIROSINT) 200 mcg capsule Take by mouth. Active lisinopril (PRINIVIL,ZESTR IL) 40 mg tablet Take 40 mg by mouth daily. Active nebivoloL (BYSTOLIC) 20 mg tablet Take by mouth. Active omeprazole (PriLOSEC) [address] capsuleIndicati ons:GERD (gastroesophage al reflux disease) Take 1 capsule (20 mg total) by mouth 2 (two) times a day. 180 each 3 4 025 Active dicyclomine (BENTYL) 20 mg tabletIndicatio ns:Irritable bowel syndrome, unspecified type TAKE 1 TABLET BY MOUTH FOUR TIMES A DAY BEFORE MEALS AND NIGHTLY 360 tablet 2 5 Active dicyclomine (BENTYL) 20 mg tabletIndicatio ns:Irritable bowel syndrome, unspecified type Take 1 tablet (20 mg total) by mouth 4 (four) times a day (before meals and nightly). 120 each 3 4 025 Discontinued Active Problems Problem Noted Date Diagnosed Date Umbilical hernia without obstruction and without gangrene 09/20/2024 Encounters Date Type Department Care Team Description 09/20/2024 8:15 AM EST Consult General Surgery [facility] 175 [facility] [address] [place] [address] Meng Alvarado MD Umbilical hernia [...] Years (1 of 1 - PCV) 11/19/2009 Abdominal Aortic Aneurysm (AAA) Screen 07/17/2022 Cholesterol Screening (Lipid Panel) 07/17/2022 Colorectal Cancer Screening: Colonoscopy 07/17/2022 Depression Screening 07/17/2022 Hepatitis C Screening 07/17/2022 Social Influencers of Health Screening 07/17/2022 COVID-19 Vaccine ( season) 2024 05/19/2024, 06/27/2023, 06/11/2022, Additional history exists Falls Risk Assessment 11/19/2024 RSV Immunization Adult Patients (1 - 1-dose 75+ series) 11/19/2034 Zoster Vaccines Completed 08/22/2020, 06/04/2020 Influenza Vaccine Completed 05/19/2024, , 06/11/2022, Additional [...] age to complete this topic Meningococcal B Vaccine Aged Out No l onger eligible based on patient's age to complete [...] patient's age to complete this topic Insurance MEDICARE Care Teams Media Marketing Specialist Relationship Specialty Start Date End Date Jayme Rai MD [address] [place] [phone] PCP - General Internal Medicine 09/20/24
[2024-12-17 10:20] VITALS: BP 140/89; PULSE 69; RESP 18; O2SAT 95; BMI 35.3
--- NOTE | 2024-12-17 10:42 | P.CONAN_ITS ---
Documented by User: Jennifer Almeida NP 01/13/25 08:56 HPI - Anesthesia Eval Consult details Narrative: 64yo M for Left Knee Replacement Total, 01/14/25 Medically optimized Asthma: no need for inhaler ~ 1 year GERD: ppi controls s/p cspine surgery PMFSH Active Problems Active Problems: All Active Problems Insufficiency fracture of medial condyle of femur (Acute) Left knee pain (Acute) Osteoarthritis of left knee (Acute) Past Medical History Medical History Abdominal hernia Back pain Cervical radiculopathy IBS (irritable bowel syndrome) Prostate cancer Thyroid disease Papillary thyroid carcinoma DJD (degenerative joint disease) Pulmonary nodule Kidney stones History of headache Gout Asthma Hypothyroid HTN (hypertension) GERD (gastroesophageal reflux disease) Family History Family history of problems with anesthesia: No Surgical History Surgical History Hx of foot surgery Hx of arthroscopy of left knee H/O colonoscopy History of prostatectomy History of thyroid surgery Hx of elbow surgery S/P TURP (status post transurethral resection of prostate) History of carpal tunnel release Hx of neck surgery History of back surgery History of Problems with Anesthesia: No Social History Social History Are you a primary healthcare consultant to a significant other at home: No Do you presently have visiting nurse or other home services: No Comment: . Patient Tobacco Use Status: Never used Tobacco Use of substances other than those prescribed or required for medical reasons: No Have you been hit, kicked, punched, or otherwise hurt by someone within the past year? 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 Allergies Allergy/AdvReac Type Severity Reaction Status Date / Time oxycodone [Percocet] Allergy Severe Headache Verified 01/14/25 06:18 sulfa Allergy Severe Blister Uncoded 01/14/25 06:18 Home Medications ?Medication ?Instructions ?Recorded ?Confirmed ?Last Taken ?Type allopurinol 300 mg tablet 300 mg PO DAILY 05/11/23 12/17/24 06/14/23 History fexofenadine 180 mg tablet 180 mg PO DAILY 05/11/23 12/17/24 06/14/23 History (Radha Allergy) ibuprofen 800 mg tablet 800 mg PO Q8H PRN Pain 05/11/23 12/17/24 06/11/23 History levothyroxine 200 mcg capsule 200 mcg PO DAILY 05/11/23 12/17/24 06/14/23 History nebivolol 20 mg tablet 20 mg PO DAILY 05/11/23 12/17/24 06/14/23 History omeprazole 40 mg capsule,delayed 40 mg PO DAILY 05/11/23 12/17/24 01/14/25 History release tramadol 50 mg tablet 50 mg PO DAILY PRN Pain 05/11/23 12/17/24 06/10/23 History amlodipine 10 mg-benazepril 40 mg 1 cap PO DAILY 12/17/24 12/17/24 01/14/25 History capsule dicyclomine 20 mg tablet 20 mg PO QID 12/17/24 12/17/24 Unknown History fiber 2 tab PO DAILY 12/17/24 12/17/24 Unknown History fluticasone 100 mcg-salmeterol 50 1 inh inhalation DAILY PRN 12/17/24 12/17/24 Unknown History mcg/dose blistr powdr for Shortness Of Breath Or Wheezing inhalation (Advair Diskus) Exam Height,Weight and Vital Signs: Height 5 ft 9 in Weight 108.409 kg Last Vital Signs Pulse 69 12/17/24 10:20 Resp 18 12/17/24 10:20 BP 140/89 H 12/17/24 10:20 Pulse Ox 95 12/17/24 10:20 O2 Del Method Room Air 12/17/24 10:20 Pertinent Lab Results Pertinent Lab Results: CBC and BMP 12/2024 from outside facility WNL Lab Results 12/17/24 01/09/25 Range/Units 10:30 15:35 Nasal Screen MRSA (PCR) NEGATIVE (Negative) Nasal S. aureus Screen NEGATIVE (Negative) Nasal MRSA/S.aureus Interp SEE NOTE Blood Type B Negative Antibody Screen NEGATIVE Narrative Narrative: EKG 10/2024 SB @ 58 Airway TM Dist: >3cm Neck ROM: Full Loose/Missing/Broken Teeth: Yes (missing throughout) Heart: RRR Lungs: CTAB Assessment and Plan Assessment Anesthesia Assessment: Anesthesia Plan Discussed and PAT Visit Final Anesthetic Review Family History of Problems with Anesthesia: No History of Problems with Anesthesia: No Documented by User: Deborah Bales MD 01/14/25 07:23 [facility] Past Medical History Medical History Abdominal hernia Back pain Cervical radiculopathy IBS (irritable bowel syndrome) Prostate cancer Thyroid disease Papillary thyroid carcinoma DJD (degenerative joint disease) Pulmonary nodule Kidney stones History of headache Gout Asthma Hypothyroid HTN (hypertension) GERD (gastroesophageal reflux disease) Surgical History Surgical History Hx of foot surgery Hx of arthroscopy of left knee H/O colonoscopy History of prostatectomy History of thyroid surgery Hx of elbow surgery S/P TURP (status post transurethral resection of prostate) History of carpal tunnel release Hx of neck surgery History of back surgery Social History Social History Are you a primary healthcare consultant to a significant other at home: No Do you presently have visiting nurse or other home services: No Comment: . Patient Tobacco Use Status: Never used Tobacco Use of substances other than those prescribed or required for medical reasons: No Have you been hit, kicked, punched, or otherwise hurt by someone within the past year? 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 Allergies Allergy/AdvReac Type Severity Reaction Status Date / Time oxycodone [Percocet] Allergy Severe Headache Verified 01/14/25 06:18 sulfa Allergy Severe Blister Uncoded 01/14/25 06:18 Home Medications ?Medication ?Instructions ?Recorded ?Confirmed ?Last Taken ?Type allopurinol 300 mg tablet 300 mg PO DAILY 05/11/23 12/17/24 06/14/23 History fexofenadine 180 mg tablet 180 mg PO DAILY 05/11/23 12/17/24 06/14/23 History (Radha Allergy) ibuprofen 800 mg tablet 800 mg PO Q8H PRN Pain 05/11/23 12/17/24 06/11/23 History levothyroxine 200 mcg capsule 200 mcg PO DAILY 05/11/23 12/17/24 06/14/23 History nebivolol 20 mg tablet 20 mg PO DAILY 05/11/23 12/17/24 06/14/23 History omeprazole 40 mg capsule,delayed 40 mg PO DAILY 05/11/23 12/17/24 01/14/25 History release tramadol 50 mg tablet 50 mg PO DAILY PRN Pain 05/11/23 12/17/24 06/10/23 History amlodipine 10 mg-benazepril 40 mg 1 cap PO DAILY 12/17/24 12/17/24 01/14/25 History capsule dicyclomine 20 mg tablet 20 mg PO QID 12/17/24 12/17/24 Unknown History fiber 2 tab PO DAILY 12/17/24 12/17/24 Unknown History fluticasone 100 mcg-salmeterol 50 1 inh inhalation DAILY PRN 12/17/24 12/17/24 Unknown History mcg/dose blistr powdr for Shortness Of Breath Or Wheezing inhalation (Advair Diskus) Exam Airway Mallampati Class: II Assessment and Plan Final Anesthetic Review NPO: Yes ASA Class: II Final Preanesthetic Review: No Changes in Pt Med Stat, Meds/Allgs Chart Reviewed, Consent Obtained/Reviewed and Anes Risks/Benef Reviewed Patient Risk: Intermediate Procedure Risk: Intermediate Anesthetic Plan Anesthetic Plan: GA, Spinal, Regional Block and Agree w/ Assess. and Plan Disposition: Standard PACU
[2024-12-17 12:15] LABS: MRSA Nasal PCR NEGATIVE (Negative); SA Nasal PCR NEGATIVE (Negative)
[2025-01-14] VITALS (12 sets, daily range): BP systolic 103–139; BP diastolic 62–89; PULSE 61–80; RESP 12–18; TEMP 36.2–36.8; O2SAT 92–98; BMI 34.5; BMI 36.6
--- NOTE | ~2025-01-14 | XR_ITS ---
EXAMINATION: XR KNEE 1-2 VIEWS LEFT HISTORY: left TKA COMPARISON: Comparison is made with the prior examination dated 12/08/2023. FINDINGS: AP and lateral portable views of the left knee are submitted from the operating room at 10:28 AM. The patient is status post total knee arthroplasty. The orthopedic elements are in anatomic alignment. Postoperative changes are noted in the soft tissues. XR/XR knee LT 2V IMPRESSION: Status post left total knee arthroplasty. Electronically signed by: Eric Shea MD 01/14/2025 10:42 AM EDT
[2025-01-14 07:01] LABS: Hematocrit 42.6 % (42.0-52.0); Hemoglobin 14.8 g/dl (14.0-18.0)
[2025-01-14] MEDS: Lactated Ringers 1,000 ML 100 ML IVCONT ×3 (07:09→21:40)
--- NOTE | 2025-01-14 07:24 | MHC.SHP ---
Pre-Procedural Eval Section A - 24 Hr Update-Section A only Date of Service: 01/14/25 The patient is an INPATIENT: No Changes since office visit: No Cold of Flu in the past 2 weeks, No New Medical Problems, No Changes in Medication and No Patient answered all questions The patient has been examined within 24 hours of the surgical procedure. The History & Physical has been completed within 30 days and I have reviewed it.: Yes Section B - Complete if H&P > 30 days Chief Complaint: Unilateral primary osteoarthritis, left knee Allergies: Allergies Allergy/AdvReac Type Severity Reaction Status Date / Time oxycodone [Percocet] Allergy Severe Headache Verified 01/14/25 06:18 sulfa Allergy Severe Blister Uncoded 01/14/25 06:18 Plan I have reviewed the history and physical and performed a pertinent physical examination on my patient. No changes have occurred unless specified. Time Spent With Patient Time: Total time managing care of this patient today ____ minutes.
[2025-01-14] MEDS: ceFAZolin Sodium/Dextrose,Iso 2 GM/50 ML PIGGYBACK IV ×2 (08:06→13:56)
[2025-01-14] MEDS: Acetaminophen 1,000 MG/100 ML PIGGYBACK 400 MG IV (09:17)
--- NOTE | 2025-01-14 09:31 | P.OP_ITS ---
Operative Note Operative Note Date of Service: 01/14/25 Narrative: Date of Service: 01/14/25 Pre-op diagnosis: Left knee OA Post-op diagnosis: same Procedure: Left TKA Implants: [place] Triathlon posterior stabilized cemented 12/16/10ps/35a Surgeon: Yusef Mckeon MD Anesthesia: MAC, local and spinal Was an Industrial Rehabilitation Consultant used for this Procedure?: Yes Industrial Rehabilitation Consultant: Solitario Powell Estimated blood loss (mL): 25 Tourniquet time (min): 74 IV fluids (mL): 1,000 Pathology: other Condition: stable Disposition: PACU Procedure in detail: The patient was brought to the operating room and prepped and draped in standard sterile fashion. A time-out was called to identify proper site proper procedure proper surgeon and IV antibiotics were administered. 1 g of IV tranexamic acid was administered. I began by making a midline incision to the retinaculum and performed a medial parapatellar arthrotomy. The patella was translated laterally and the knee was flexed up. Severe cartilage damge was present in the medial femoral condyle and the medial plateau I performed a small medial peel and resected the infrapatellar fat pad. Bean's line was then used to drill my intramedullary femoral guide and my distal femur cut of 10 mm was made in 5 degrees of valgus while protecting the soft tissues. I then measured a # 5 femur and placed my cutting guide and made my anterior posterior and chamfer cuts in 3 deg or ER while protecting the soft tissues at all times. I then made my box but removing the PCL. Once I was satisfied with my cuts I turned my attention to the tibia. I removed the meniscus medially and laterally and , using an external cutting guide, in line with the tibial crest and the third ray, I made my distal tibial cut in 0 deg slope of while protecting the posterior soft tissues at all times. An extension block was used to confirm appropriate amount of bony resection. I then sized a #5 tibia and once I was satisfied that there was complete tibial coverage I placed my trial and with the trial femur in place took the knee through range of motion. I was satisfied with the extension and flexion as well as the balance at 0, 30 and 90 degrees. I then turned my attention to the patella where I removed 1 cm from the undersurface of the patella and then trialed a 35a patellar button. Again the knee was taken through range of motion I was satisfied with the tracking. I then prepared the tibia with a drill and punch. A femoral bone plug was placed and the knee was irrigated copiously. 2 bags of Palacos cement was mixed on the back table using 3rd gen technique. I then cemented the patella, tibia and femur in standard fashion. Axial compression adn a clamp were used while the cement dried. Once the cement was hard on the back table all excess cement was removed and I trialed different inserts until I selected a #11 insert. The final insert was placed and local TXA was administered. The knee was then closed with a running Quill suture, a 3 0 Vicryl and romulo on the skin. Patient was then placed in sterile dressing and brought to recovery room in stable condition there were no known complications.
--- NOTE | 2025-01-14 11:31 | PM.DS ---
DS: Providers Provider Date of Service: 01/16/25 Date of discharge: 01/16/25 Primary care physician: Jayme Rai MD Consults: 01/14/25 10:57 Consult to Hospitalist Routine Comment: Consulting Provider[place] [facility] Reason For Exam: medical management DS: Summary Hospital Course Hospital Course: The patient underwent a successful left total knee arthroplasty, they were transferred to PACU and then to the floor to recover. During their stay, their vitals were stable, afebrile at 97.9. Labs were unremarkable, H/H 12.0/35.2. POD 1 they were started on Lovenox for DVT ppx, they also received Physical Therapy services twice a day. Prior to discharge, their dressing was clean dry and intact and the plan was to be discharged home with VNA services. Time Attestation Total time managing care of this patient today: 30 mintues. Discharge Coordination Time (in mins): 30 Quality: Safe Use of Opioids Does Pt have an Active Cancer Diagnosis on the Problem List?: No Quality: Stroke Does the patient have a stroke diagnosis?: No Physical Exam Vital Signs: Vital Signs: Last Vital Signs Temp 97.2 F 01/14/25 11:27 Pulse 66 01/14/25 11:27 Resp 18 01/14/25 11:27 BP 134/84 01/14/25 11:27 Pulse Ox 95 01/14/25 11:27 O2 Del Method Nasal Cannula 01/14/25 11:27 O2 Flow Rate 2 01/14/25 11:27 BMI result Body Mass Index 36.6 Const: General: cooperative, healthy appearing and no acute distress Resp: Effort & Inspection: normal respiratory effort and able to speak in complete sentences Extrem: Other: left knee dressing is c/d/i. Able to dorsi/plantar flex. Calf is supple and nontender. Sensation intact. Pedal pulse intact. DS: Data Data Completed and Pending Pending studies at discharge: Pending at discharge 01/14/25 09:07 Surgical [PTH] Routine Labs on day of discharge: Laboratory Results - last 24 hr 01/14/25 06:37 Hgb 14.8 Hct 42.6 Discharge Plan Discharge Patient Disposition: Home Health Service [facility] - 3-5 Days ([facility] will call you to schedule home physical therapy appointments) [place] [facility] [place] 01/31/25 8:00 am (01/31/25 08:00 Physical Therapy-[facility] office Solitario Powell PA-C) Solitario Powell PA-C [Physician Lock Master] - 2 Weeks (01/30/25 15:00 [facility] Solitario Powell PA-C) Discharge Medications: New celecoxib 200 mg Capsule 200 mg PO BID 30 Days Qty: 60 0RF acetaminophen 325 mg Tablet 650 mg PO Q6H PRN (Reason: Pain, Mild 1-3,Fever,Headache) 30 Days Qty: 240 0RF docusate sodium 100 mg Capsule 100 mg PO BID 30 Days Qty: 60 0RF oxycodone 5 mg Tablet 5 mg PO Q4H PRN (Reason: Pain, Moderate(Pain Scale 4-6)) 7 Days Qty: 42 0RF Rx Instructions: Partial Fill upon patient request. enoxaparin 40 mg/0.4 mL Syringe 40 mg subcut Q24H 42 Days Qty: 16.8 0RF Continued (DME) walker [facility] See Rx Instructions .MEDSUPPLY Qty: 1 0RF Rx Instructions: Folding Front wheeled walker DURATION 99 DAYS dicyclomine 20 mg tablet 20 mg PO QID fiber Tablet 2 tab PO DAILY amlodipine-olmesartan 10-40 mg tablet 1 tab PO DAILY omeprazole 40 mg capsule,delayed release(DR/EC) 40 mg PO DAILY@0630 ibuprofen 800 mg tablet 800 mg PO Q8H PRN (Reason: Pain) allopurinol 300 mg tablet 300 mg PO DAILY nebivolol 20 mg tablet 20 mg PO DAILY tramadol 50 mg tablet 50 mg PO DAILY PRN (Reason: Pain) fexofenadine [Radha Allergy] 180 mg tablet 180 mg PO DAILY levothyroxine 200 mcg capsule 200 mcg PO DAILY@0600 Discharge Orders: Discharge Order (Routine); Ordered 01/16/25 Ordered By: Clara Back Diet: Regular diet Activity on Discharge: Use cane or walker Activity Restrictions/Additional Instructions: Physical Therapy for Total knee arthroplasty: WBAT, gait training, ROM 0-12, quad strength Limit stair climbing No showering, no tub bath-keep dressing clean, dry and intact No driving x6 weeks Continue lovenox once a day x 6 weeks Follow up with [facility] [place]: --you will also have your first out patient PT eval on the day of your post op appt-so please plan on being in the office that day for an extended period of time. Print Language: Chadian
--- NOTE | 2025-01-14 11:34 | P.F2F_ITS ---
Service Date Service Date: 01/14/25 Encounter Date of encounter: 01/15/25 Reasons for Services Signs and symptoms assessed: s/p RTKA Pt. is considered homebound due to recent surgery. Unable to drive, poor balance, poor gait mechanics. Reason for physical therapy: home safety and mobility, therapeutic exercises, restore joint function, gait/transfer training and ADL training Homebound: Leaving the home is medically contraindicated at this time without the asist of a device and/or another person due th the listed conditions above and below. Reason homebound: unsteady gait / fall risk, leg weakness, pain with ambulation, pain with transfers, poor balance / fall risk and unable to drive Certification: Based on the above findings, I certify that this patient is confined to the home and needs intermittent usp care, physical therapy and/or speech th erapy, or continues to need occupational therapy. The patient is under my care, and I have initiated the establishment of the plan of care. The patient will be followed by a physician who will periodically review the plan of care. Time Spent With Patient Time: Total time managing care of this patient today ____ minutes.
[2025-01-14] MEDS: HYDROmorphone HCl 0.5 MG/0.5 ML SYRINGE 0.25 MG IVPUSH ×2 (11:51→17:18)
[2025-01-14] MEDS: Dicyclomine HCl 10 MG CAPSULE 20 MG PO ×3 (11:51→20:37)
[2025-01-14 12:08] LABS: Creatinine Clr Calc Pharmacy 98.9; Estimated Glomerular Filt Rate > 60
[2025-01-14] MEDS: oxyCODONE HCl Immed Release 5 MG TABLET PO (12:31)
--- NOTE | 2025-01-14 14:22 | PHA.MEDREC ---
Addendum entered by Jluis Schaeffer [facility] 01/14/25 14:46: MED REC CHECKED BY [facility] Original Note: Pharmacy Consult ? Medication Reconciliation Pharmacy has reviewed the medication reconciliation done by nursing. Spoke to patient and he was able to confirm his medications, Patient state he is no longer using Advair Diskus. Patient states he's taking Amlodipine-Benazepril 10-40 mg, however claims has Amlodipine-Olmesartan 10-40mg, last filled 01/08/25. Called [facility] and confirmed there is no claim history for Amlodipine -Benazepril. Patient has only been filling Amlodipine -Olmesartan.
[2025-01-14] MEDS: Celecoxib 200 MG CAPSULE PO (20:37)
[2025-01-14] MEDS: Docusate Sodium 100 MG CAPSULE PO (20:38)
[2025-01-14] MEDS: Acetaminophen 325 MG TABLET 650 MG PO (20:38)
[2025-01-14] MEDS: oxyCODONE HCl ER 10 MG TAB.ER.12H PO (20:38)
--- NOTE | 2025-01-14 23:47 | HO.PM.IMCN ---
History of Present Illness Data of Consult Service Date: 01/14/25 Requesting physician: Yusef Mckeon Primary Care Provider: Jayme Rai MD HPI Reason for consult: medical management Patient is a 64-year-old male with a past medical history significant for prostate cancer, papillary thyroid carcinoma, DJD, kidney stones, gout, mild intermittent asthma, hypothyroid, hypertension and GERD s/p left TKA today, hospitalist consult placed for medical management. The patient is resting comfortably and denies any chest pain, shortness of breath, nausea, vomiting, fever or chills. He reports he has been able to urinate and pass gas. Medical history was reviewed with the patient, and he has no current concerns. Review of Systems Constitutional: Constitutional: Denies chills, Denies fatigue, Denies fever(s) and Denies headache(s) Eyes: Eyes: Denies change in vision and Denies photophobia ENT: Denies headache(s) Cardiovascular: Cardiovascular: Denies chest pain, Denies leg edema and Denies dyspnea Respiratory: Respiratory: Denies cough, Denies dyspnea and Denies wheezing Gastrointestinal: Gastrointestinal: Denies abdominal pain, Denies diarrhea, Denies nausea and Denies vomiting Genitourinary: Genitourinary: Denies dysuria, Denies urinary frequency and Denies urinary urgency Musculoskeletal: Musculoskeletal: Reports as per HPI Integumentary/Breasts: Skin/Breast: Denies rash Neurologic: Denies confusion and Denies headache(s) Psychiatric: Psychiatric: Denies confusion Endocrine: Endocrine: Denies fatigue Hematologic/Lymphatic: Hematologic/Lymphatic: Denies easy bleeding and Denies easy bruising Allergic/Immunologic: Allergic/Immunologic: Denies wheezing [facility] Medical History Abdominal hernia Back pain Cervical radiculopathy IBS (irritable bowel syndrome) Prostate cancer Thyroid disease Papillary thyroid carcinoma DJD (degenerative joint disease) Pulmonary nodule Kidney stones History of headache Gout Asthma Hypothyroid HTN (hypertension) GERD (gastroesophageal reflux disease) Surgical History Hx of foot surgery Hx of arthroscopy of left knee H/O colonoscopy History of prostatectomy History of thyroid surgery Hx of elbow surgery S/P TURP (status post transurethral resection of prostate) History of carpal tunnel release Hx of neck surgery History of back surgery Social History Household Members: Spouse Housing: House Are you a primary medicare insurance specialist to a significant other at home: No Do you presently have visiting nurse or other home services: No Comment: . Patient Tobacco Use Status: Never used Tobacco Use of substances other than those prescribed or required for medical reasons: No Have you been hit, kicked, punched, or otherwise hurt by someone within the past year? If so, by whom?: No Are you DNR?: No Advance Directives: No Advance Directives Information Provided: Yes Advance Directives on File: No Do you have a plan to hurt others: No Plan Recently lost weight without trying: No Poor oral hygiene: Yes Current occupational status: employed Current occupation: [employer] Meds Allergies Allergy/AdvReac Type Severity Reaction Status Date / Time oxycodone [Percocet] Allergy Severe Headache Verified 01/14/25 06:18 sulfa Allergy Severe Blister Uncoded 01/14/25 06:18 Active Medications: Current Medications Acetaminophen (Acetaminophen 325 Mg Tablet) 650 mg PO Q6H PRN PRN Reason: Pain, Mild 1-3,fever,headache Last Admin: 01/14/25 20:38 Dose: 650 mg Allopurinol (Allopurinol 300 Mg Tablet) 300 mg PO DAILY [facility] Calcium Polycarbophil (Calcium Polycarbophil Tablet) 2 tab PO DAILY [facility] Celecoxib (Celecoxib 200 Mg Capsule) 200 mg PO BID [facility] Last Admin: 01/14/25 20:37 Dose: 200 mg Dicyclomine HCl (Dicyclomine Hcl 10 Mg Capsule) 20 mg PO QID [facility] Last Admin: 01/14/25 20:37 Dose: 20 mg Docusate Sodium (Docusate Sodium 100 Mg Capsule) 100 mg PO BID [facility] Last Admin: 01/14/25 20:38 Dose: 100 mg Enoxaparin Sodium (Enoxaparin Sodium 40 Mg/0.4 Ml Syringe) 40 mg SUBCUT Q24H [facility] Fluticasone/Vilanterol (Fluticasone/Vilanterol 100/25 Blst.W.Dev) 1 puff INHALE DAILY PRN PRN Reason: Shortness Of Breath Or Wheezin Hydromorphone HCl (Hydromorphone Hcl 0.5 Mg/0.5 Ml Syringe) 0.25 mg IVPUSH Q4H PRN; Protocol PRN Reason: Pain, Severe (Pain Scale 7-10) Last Admin: 01/14/25 17:18 Dose: 0.25 mg Lactated Ringer's (Lr) 1,000 mls @ 100 mls/hr IVCONT .Q10H [facility] Stop: 01/15/25 08:00 Last Admin: 01/14/25 21:40 Dose: 100 mls/hr Levothyroxine Sodium (Levothyroxine Sodium 200 Mcg Tablet) 200 mcg PO DAILY@629 [facility] Loratadine (Loratadine 10 Mg Tablet) 10 mg PO DAILY [facility] Non-Formulary Medication (Nebivolol) 20 mg PO DAILY [facility] Omeprazole (Omeprazole 40 Mg Capsule.Dr) 40 mg PO DAILY@629 [facility] Ondansetron HCl (Ondansetron Hcl 4 Mg/2 Ml Vial) 4 mg IVPUSH Q8H PRN PRN Reason: Nausea and Vomiting Oxycodone HCl (Oxycodone Hcl Immed Release 5 Mg Tablet) 5 mg PO Q4H PRN PRN Reason: Pain, Moderate(Pain Scale 4-6) Last Admin: 01/14/25 12:31 Dose: 5 mg Oxycodone HCl (Oxycodone Hcl Er 10 Mg Tab.Er.12h) 10 mg PO BID [facility] Last Admin: 01/14/25 20:38 Dose: 10 mg Sodium Chloride (0.9 % Sodium Chloride Flush 3 Ml Syringe) 3 ml IVFLUSH QSHIFT [facility] Last Admin: 01/14/25 21:43 Dose: Not Given Home Medications ?Medication ?Instructions ?Recorded ?Confirmed ?Last Taken ?Type allopurinol 300 mg tablet 300 mg PO DAILY 05/11/23 12/17/24 06/14/23 History fexofenadine 180 mg tablet 180 mg PO DAILY 05/11/23 12/17/24 06/14/23 History (Radha Allergy) ibuprofen 800 mg tablet 800 mg PO Q8H PRN Pain 05/11/23 12/17/24 06/11/23 History levothyroxine 200 mcg capsule 200 mcg PO DAILY@0600 05/11/23 01/14/25 06/14/23 History nebivolol 20 mg tablet 20 mg PO DAILY 05/11/23 12/17/24 06/14/23 History omeprazole 40 mg capsule,delayed 40 mg PO DAILY@0630 05/11/23 01/14/25 01/14/25 History release tramadol 50 mg tablet 50 mg PO DAILY PRN Pain 05/11/23 12/17/24 06/10/23 History dicyclomine 20 mg tablet 20 mg PO QID 12/17/24 12/17/24 Unknown History fiber 2 tab PO DAILY 12/17/24 12/17/24 Unknown History amlodipine 10 mg-olmesartan 40 mg 1 tab PO DAILY 01/14/25 01/14/25 Unknown History tablet Physical Exam Vital Signs and Narrative: Vital Signs: Last Vital Signs Temp 97.9 F 01/14/25 20:00 Pulse 80 01/14/25 20:00 Resp 16 01/14/25 20:00 BP 103/62 01/14/25 20:00 Pulse Ox 94 01/14/25 20:00 O2 Del Method Room Air 01/14/25 20:00 O2 Flow Rate 2 01/14/25 11:27 BMI result Body Mass Index 36.6 General: AOx3, no acute distress Resp: CTA bilaterally CVS: S1, S2, RRR GI: +BS, NT, no distention Skin: Warm, dry Neuro: Cranial nerves II-XII grossly intact bilaterally. Motor grossly intact bilaterally Extremities: No LE edema. Pneumoboots present. Capillary refill normal. Pedal pulses intact bilaterally and equally. Sensation intact bilaterally and equally. Psych: Appropriate affect Const: General: No confusion Orientation/consciousness: No confusion Eyes: Direct Ophthalmoscopy: No photophobia Neuro: General: No confusion Results Labs 01/14/25 06:37 01/14/25 11:44 Labs: Laboratory Results - last 24 hr 01/14/25 11:44 Estim Creat Clear Calc 98.9 Estimated GFR > 60 Imaging Radiologist's Impressions: Impressions Knee X-Ray 01/14/25 09:40 IMPRESSION: Status post left total knee arthroplasty. Electronically signed by: Eric Shea MD 01/14/2025 10:42 AM EDT RP Assessment and Plan (1) Status post total left knee replacement: Status: Acute (2) Class 2 obesity: Status: Acute Plan Patient is a 64-year-old male with a past medical history significant for prostate cancer, papillary thyroid carcinoma, DJD, kidney stones, gout, mild intermittent asthma, hypothyroid, hypertension and GERD s/p left TKA today, hospitalist consult placed for medical management. s/p L TKA - POD 0 - pain well managed - plan per surgery hypothyroid, hx thyroid carcinoma - continue levothyroxine Gout - continue allopurinol Mild intermittent asthma without acute exacerbation - albuterol p.r.n. Hypertension - continue amlodipine olmesartan, nebivolol GERD - continue omeprazole Class 2 obesity - BMI 36.6 - weight loss encouraged Thank you for allowing me to participate in the pt's care. Signing off for now. Please contact the medical team if any questions or concerns.
[2025-01-15] VITALS (7 sets, daily range): BP systolic 115–144; BP diastolic 57–82; PULSE 63–79; RESP 16–20; TEMP 36.2–37; O2SAT 91–97
[2025-01-15] MEDS: HYDROmorphone HCl 0.5 MG/0.5 ML SYRINGE 0.25 MG IVPUSH ×4 (00:04→16:12)
[2025-01-15 05:42] LABS: MANUAL DIFF FLAG NO
[2025-01-15 05:49] LABS: Basophils Percent Auto 0.1 % (0-2); Eosinophils Percent Auto 0.1 % (0-4); Hemoglobin 12.8 g/dl (14.0-18.0); Imm Gran Abs Auto 0.07 X10*3/uL (0.00-0.03); Imm Gran Pct Auto 0.4 % (0.0-0.4); Lymphocytes Percent Auto 5.8 % (20-40); Mean Corpuscular HGB Conc 33.7 g/dl (31.0-36.0); Mean Corpuscular Hemoglobin 31.4 pg (27.0-33.0); Mean Corpuscular Volume 93.4 fL (80.0-98.0); Mean Platelet Volume 10.6 fL (9.4-12.4); Monocytes Absolute Auto 1.1 X10*3/uL (0.1-1.2); Monocytes Percent Auto 6.1 % (2-11); Neutrophils Absolute Auto 15.1 x10*3/uL (2.0-8.3); Neutrophils Percent Auto 87.5 % (45-73); Platelet Count 164 X10*3/uL (160-400); Red Blood Count 4.07 X10*6/uL (4.60-5.80); Red Cell Distribution Width 12.7 % (11.0-16.0); White Blood Count 17.3 X10*3/uL (4.8-10.8)
[2025-01-15 06:02] LABS: Anion Gap 8 (12-20); Blood Urea Nitrogen 18 mg/dL (9-16); Calcium 8.4 mg/dL (8.4-10.2); Carbon Dioxide 28 mmol/L (22-29); Chloride 108 mmol/L (96-108); Creatinine Clr Calc Pharmacy 87.5; Estimated Glomerular Filt Rate > 60; Glucose Fasting 119 mg/dL (60-99); Potassium 4.4 mmol/L (3.3-5.1); Sodium 140 mmol/L (135-145)
[2025-01-15] MEDS: Omeprazole 40 MG CAPSULE.DR PO (06:17)
[2025-01-15] MEDS: Levothyroxine Sodium 200 MCG TABLET PO (06:18)
[2025-01-15] MEDS: Lactated Ringers 1,000 ML 100 ML IVCONT (06:25)
--- NOTE | 2025-01-15 07:23 | PM.PNORT ---
Subjective Subjective Date of Service: 01/15/25 Interval history: POD1 s/p LTKA Patient is resting in bed comfortably No overnight events Pain is managed No additional complaints Physical Exam Vital Signs: Vital Signs: Last Vital Signs Temp 98.5 F 01/15/25 06:44 Pulse 70 01/15/25 06:44 Resp 16 01/15/25 06:44 BP 120/77 01/15/25 06:44 Pulse Ox 94 01/15/25 06:44 O2 Del Method Room Air 01/15/25 06:44 O2 Flow Rate 2 01/14/25 11:27 BMI result Body Mass Index 36.6 Const: General: cooperative, healthy appearing and no acute distress Resp: Effort & Inspection: normal respiratory effort and able to speak in complete sentences Extrem: Other: left knee dressing is c/d/i. Able to dorsi/plantar flex. Calf is supple and nontender. Sensation intact. Pedal pulse intact. Procedures Date of Service Date of Service: 01/15/25 Progress Note: A&P Assessment and plan (1) Status post total left knee replacement: Status: Acute Plan Continue pain mgmnt -Patient reports that his pain has been difficult to manage after block wore off around 8pm yesterday Begin Lovenox for dvt ppx begin PT for LTKA Dispo planning-Pending PT, pain mgmnt Time Spent With Patient Time: Total time managing care of this patient today ____ minutes. Quality Stroke Does the patient have a stroke diagnosis?: No VTE Prior VTE?: No VTE Risk Level:: Medical - moderate - high VTE Device Contraindication: N/A - Device Ordered VTE Drug Contraindication: N/A - Med Ordered
[2025-01-15] MEDS: Loratadine 10 MG TABLET PO (08:00)
[2025-01-15] MEDS: oxyCODONE HCl ER 10 MG TAB.ER.12H PO ×2 (08:00→20:33)
[2025-01-15] MEDS: Docusate Sodium 100 MG CAPSULE PO ×2 (08:00→20:33)
[2025-01-15] MEDS: Celecoxib 200 MG CAPSULE PO ×2 (08:01→20:33)
[2025-01-15] MEDS: allopurinoL 300 MG TABLET PO (08:02)
[2025-01-15] MEDS: Enoxaparin Sodium 40 MG/0.4 ML SYRINGE SUBCUT (08:02)
[2025-01-15] MEDS: Dicyclomine HCl 10 MG CAPSULE 20 MG PO ×4 (08:02→20:33)
[2025-01-15] MEDS: oxyCODONE HCl Immed Release 5 MG TABLET PO (08:56)
[2025-01-15] MEDS: calcium polycarbophiL TABLET 2 TAB PO (09:00)
--- NOTE | 2025-01-15 09:33 | HO.POSTANES ---
Post Anesthesia Evaluation Post Anesthesia Evaluation Date of Service: 01/15/25 Vital Signs: Vital Signs Temp Pulse Resp BP Pulse Ox O2 Del Method 01/15/25 06:44 98.5 F 70 16 120/77 94 Room Air 01/15/25 03:36 97.1 F 65 16 129/82 93 Room Air 01/15/25 00:00 98.3 F 79 20 115/57 L 92 Room Air Anesthesia: Spinal Mental Status: Awake Pain Control: Satisfactory Nausea/Vomiting: None Hydration: Adequate Anesthesia-Related Issues: No Anes. Related Issues
[2025-01-15] MEDS: 0.9 % Sodium Chloride Flush 3 ML SYRINGE IVFLUSH ×2 (16:13→20:34)
--- NOTE | 2025-01-15 16:18 | MHC.CM.PN ---
Patient lives in a home w/ his . Ambulates w/ walker/cane. Also has rollator and crutches. Independent w/ care. PCP Jayme Rai MD Reports he has a HCP naming his , Latonya, as HCA. DP: Home w/ services. Prefers [facility], who is following. Anticipate dc tomorrow. transport. CM will continue to follow.
[2025-01-15] MEDS: Acetaminophen 325 MG TABLET 650 MG PO (20:34)
[2025-01-16 03:23] VITALS: BP 132/74; PULSE 80; RESP 16; TEMP 36.2; O2SAT 93
[2025-01-16] MEDS: Omeprazole 40 MG CAPSULE.DR PO (05:47)
[2025-01-16] MEDS: Levothyroxine Sodium 200 MCG TABLET PO (05:47)
[2025-01-16 05:54] LABS: MANUAL DIFF FLAG NO
[2025-01-16 06:02] LABS: Basophils Percent Auto 0.4 % (0-2); Eosinophils Absolute Auto 0.4 X10*3/uL (0.0-0.4); Eosinophils Percent Auto 3.3 % (0-4); Hematocrit 35.2 % (42.0-52.0); Imm Gran Abs Auto 0.03 X10*3/uL (0.00-0.03); Imm Gran Pct Auto 0.3 % (0.0-0.4); Lymphocytes Absolute Auto 1.5 X10*3/uL (1.2-4.9); Lymphocytes Percent Auto 13.8 % (20-40); Mean Corpuscular HGB Conc 34.1 g/dl (31.0-36.0); Mean Corpuscular Hemoglobin 31.7 pg (27.0-33.0); Mean Corpuscular Volume 93.1 fL (80.0-98.0); Mean Platelet Volume 10.7 fL (9.4-12.4); Monocytes Percent Auto 9.1 % (2-11); Neutrophils Absolute Auto 7.8 x10*3/uL (2.0-8.3); Neutrophils Percent Auto 73.1 % (45-73); Platelet Count 123 X10*3/uL (160-400); Red Blood Count 3.78 X10*6/uL (4.60-5.80); Red Cell Distribution Width 12.9 % (11.0-16.0); White Blood Count 10.6 X10*3/uL (4.8-10.8)
[2025-01-16 06:16] LABS: Anion Gap 9 (12-20); Blood Urea Nitrogen 19 mg/dL (9-16); Calcium 8.4 mg/dL (8.4-10.2); Carbon Dioxide 27 mmol/L (22-29); Chloride 108 mmol/L (96-108); Creatinine Clr Calc Pharmacy 101.1; Estimated Glomerular Filt Rate > 60; Glucose Fasting 103 mg/dL (60-99); Sodium 140 mmol/L (135-145)
[2025-01-16 07:24] VITALS: BP 140/80; PULSE 70; RESP 16; TEMP 36.6; O2SAT 94
[2025-01-16] MEDS: Loratadine 10 MG TABLET PO (08:47)
[2025-01-16] MEDS: Dicyclomine HCl 10 MG CAPSULE 20 MG PO (08:47)
[2025-01-16] MEDS: oxyCODONE HCl ER 10 MG TAB.ER.12H PO (08:48)
[2025-01-16] MEDS: Acetaminophen 325 MG TABLET 650 MG PO (08:48)
[2025-01-16] MEDS: calcium polycarbophiL TABLET 2 TAB PO (08:48)
[2025-01-16] MEDS: Docusate Sodium 100 MG CAPSULE PO (08:48)
[2025-01-16] MEDS: Celecoxib 200 MG CAPSULE PO (08:48)
[2025-01-16] MEDS: allopurinoL 300 MG TABLET PO (08:48)
[2025-01-16] MEDS: Enoxaparin Sodium 40 MG/0.4 ML SYRINGE SUBCUT (08:49)
[2025-01-16] MEDS: 0.9 % Sodium Chloride Flush 3 ML SYRINGE IVFLUSH (08:54)
--- NOTE | 2025-01-16 09:57 | MHC.CM.PN ---
Patient medically cleared for dc home w/ services via [facility]. Private transport.
[2025-01-16 11:21] VITALS: BP 130/65; PULSE 77; RESP 16; TEMP 36.6; O2SAT 94
== END 2025-01-16 11:43 | disposition home health service (06) ==
LOC: HO.SSS 09:41 → HO.S3 10:26
PROVIDERS: Physician Assistant; PCP Internal Medicine; Visit Provider Orthopaedic Surgery
PROC: (CPT 27447; principal; 2025-01-14 07:30)
DX: M17.12 Unilateral primary osteoarthritis, left knee (principal); M25.562 Pain in left knee; R26.2 Difficulty in walking, not elsewhere classified; I10 Essential (primary) hypertension; N20.0 Calculus of kidney; E66.812 Obesity, class 2; Z68.34 Body mass index [BMI] 34.0-34.9, adult; K21.9 Gastro-esophageal reflux disease without esophagitis; K58.9 Irritable bowel syndrome, unspecified; M54.12 Radiculopathy, cervical region; M10.9 Gout, unspecified; E03.9 Hypothyroidism, unspecified; J45.20 Mild intermittent asthma, uncomplicated; Z85.46 Personal history of malignant neoplasm of prostate; Z85.850 Personal history of malignant neoplasm of thyroid; Z79.1 Long term (current) use of non-steroidal anti-inflammatories (NSAID); Z79.899 Other long term (current) drug therapy; Z99.89 Dependence on other enabling machines and devices; Z88.2 Allergy status to sulfonamides; Z88.5 Allergy status to narcotic agent; Z98.890 Other specified postprocedural states
CPT/HCPCS: 27447; 36415; 73560; 80048; 82565; 85014; 85018; 85025; 86850; 86900; 86901; 87640; 87641; 88305; 88311; 97110; 97116; 97161; 97530; C1713; C1776; J0131; J0665; J0690; J1100; J1171; J1650; J2003; J2004; J2250; J2405; J2704; J7120

== ENCOUNTER → 2025-01-14 05:55 | Outpatient (BNV) | payer MEDICARE, SELFPAY | PROVIDERS: PCP Internal Medicine; Visit Provider Physician Assistant | DX: Z96.652 Presence of left artificial knee joint (principal); E66.812 Obesity, class 2 | CPT/HCPCS: 99222 ==

== ENCOUNTER → 2025-01-14 05:55 | Outpatient (BNV) | payer MEDICARE, SELFPAY | PROVIDERS: PCP Internal Medicine; Visit Provider Orthopaedic Surgery | DX: Z47.1 Aftercare following joint replacement surgery (principal); Z96.652 Presence of left artificial knee joint | CPT/HCPCS: 27447; 99024; G0180 ==

== ENCOUNTER → 2025-01-14 09:40 | Outpatient (BNV) | payer MEDICARE, SELFPAY | PROVIDERS: PCP Internal Medicine; Visit Provider Radiology Diagnostic Radiology | DX: Z96.652 Presence of left artificial knee joint (principal) | CPT/HCPCS: 73560 ==

== ENCOUNTER 2025-01-21 14:16 | Outpatient (AMB) | payer MEDICARE, SELFPAY ==
--- NOTE | 2025-01-21 14:28 | HO.NEPHOV_ITS ---
Vital Signs 01/21/25 14:30 Height 5 ft 9 in Weight 238 lb 4 oz BMI 35.2 BP 112/80 Blood Pressure Location Rt brachial Position Sitting Pulse 72 Pulse Source Pulse Oximeter Pulse Oximetry (%) 93 Oxygen Delivery Method Room Air Intake Visit Reasons: ENP:Protein in urine - Soonest appt per pt req Accompanied by: Self / Same As Patient Allergies oxycodone [Percocet] Allergy (Severe, Verified 01/21/25 14:30) Headache sulfa Allergy (Severe, Uncoded 01/14/25 06:18) Blister HPI Comments Details: 64-year-old gentleman with past medical history of hypertension, kidney stones, gout, prostate cancer, hypothyroidism, papillary thyroid carcinoma is here to evaluate proteinuria. He had labs drawn on 01/20/2025 at his PCP's office which showed creatinine of 1.06, GFR 78. Hypertension: Since 1982, On amlodipine olmesartan combination, well controlled Gout: on allopurinol Prostratectomy in 2019 for prostrate cancer thyroidectomy more than 5 years ago for thyroid cancer [facility] Medical History (Updated 01/21/25 @ 15:06 by Rodolfo Juarez MD) Proteinuria Abdominal hernia Back pain Cervical radiculopathy IBS (irritable bowel syndrome) Prostate cancer Thyroid disease Papillary thyroid carcinoma DJD (degenerative joint disease) Pulmonary nodule Kidney stones History of headache Gout Asthma Hypothyroid HTN (hypertension) GERD (gastroesophageal reflux disease) Surgical History Status post total left knee replacement Hx of foot surgery Hx of arthroscopy of left knee H/O colonoscopy History of prostatectomy History of thyroid surgery Hx of elbow surgery S/P TURP (status post transurethral resection of prostate) History of carpal tunnel release Hx of neck surgery History of back surgery Social History Household Members: Spouse Housing: House Are you a primary transitions rn care coordinator to a significant other at home: No Do you presently have visiting nurse or other home services: No Comment: . Patient Tobacco Use Status: Never used Tobacco service: No Current occupational status: employed Current occupation: [employer] Review of Systems Const Details: Const Denies body aches, Denies chills, Denies excessive sweating and Denies fatigue Eyes Denies blurry vision and Denies change in vision ENT Denies bleeding gums and Denies change in voice Card Denies chest pain and Denies leg ulcers Resp Denies cough and Denies excessive phlegm production GI Denies abdominal pain and Denies bloating Denies hematuria, Denies urinary frequency and Denies difficulty voiding Musc Denies abnormal gait Neuro Denies Neuro-related abnormal movements, Denies abnormal gait and Denies behavioral changes Psych Denies behavioral changes and Denies change in appetite Endo Denies change in body appearance, Denies cold intolerance, Denies excessive sweating and Denies fatigue Physical Exam Vital Signs: Last Vital Signs Pulse 72 01/21/25 14:30 BP 112/80 01/21/25 14:30 Pulse Ox 93 01/21/25 14:30 Oxygen Delivery Method Room Air 01/21/25 14:30 BMI result Body Mass Index 35.2 General: Slightly elderly obese calm, pleasant gentleman sitting in the chair Nutritional Appearance: well nourished and overweight Eyes: appearance normal, both eyes and all related structures; Alignment and Position: alignment normal and position normal Neck: No lymphadenopathy, no thyromegaly Resp: bilateral air entry equal, no added sounds present Cardio: Regular rate, regular rhythm; Heart sounds: S1 normal heart sound present and S2 normal heart sound present, no edema GI: soft, nontender, no guarding, no hepatosplenomegaly : bladder normal to inspection, bladder normal to palpation, no renal angle tenderness Skin: no rashes or lesions noted and elasticity normal, has straps on the left knee from recent knee replacement Neuro: oriented to person, oriented to place, oriented to time and moves all extremities Results Reviewed Nephrology Results: Hgb 12.0 g/dl (14.0-18.0) L 01/16/25 WBC 10.6 X10*3/uL (4.8-10.8) 01/16/25 Plt Count 123 X10*3/uL (160-400) L 01/16/25 Sodium 140 mmol/L (135-145) 01/16/25 Potassium 4.0 mmol/L (3.3-5.1) 01/16/25 Chloride 108 mmol/L (96-108) 01/16/25 Carbon Dioxide 27 mmol/L (22-29) 01/16/25 BUN 19 mg/dL (9-16) H 01/16/25 Creatinine 0.90 mg/dL (0.5-1.4) 01/16/25 Calcium 8.4 mg/dL (8.4-10.2) 01/16/25 Assessment & Plan Assessment & Plan (1) Proteinuria: Code(s): R80.9 - Proteinuria, unspecified Category: Medical (2) Class 2 obesity: Code(s): E66.812 - Obesity, class 2 Category: Medical Plan 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 If there is significant proteinuria we will call the patient and we will get further labs including HIV, SPARKLE, ANCA, complements, SPEP, UPEP, serum free light chains, PL A2R. - avoid nephrotoxic medications not limited to NSAIDs, contrast etc. - work up done so far: hepatitis C negative, uric acid 4.3, - possibly the proteinuria secondary to obesity, advised the patient about weight loss strategies and importance of weight loss Hypertension: - target blood pressures less than 130/90 mm Hg - compliance: Very good - continue amlodipine olmesartan Total time spent in the clinic is about 35 minutes, 5 minutes on chart review, review of data, 20 minutes on encounter, physical examination, counseling, answering all the questions, 10 minutes on documentation. Orders: Orders Total Protein Urine Random Today R80.9 - Proteinuria, unspecified Creatinine Urine Today R80.9 - Proteinuria, unspecified UA and rflx microscopic Today R80.9 - Proteinuria, unspecified Microalbumin, Random (w Creat) Today R80.9 - Proteinuria, unspecified Coding Level of Care Code New Pt Level 4 (20558) Diagnoses Proteinuria R80.9 Class 2 obesity E66.812
[2025-01-21 14:30] VITALS: BP 112/80; PULSE 72; O2SAT 93; BMI 35.2
--- OUTSIDE RECORDS SUMMARY | 2025-01-21 17:10 | XMS_ITS | Clinical Summary ---
Author Organization [facility] [address] [facility] Address [address] [place] [address] Phone Care Team Providers Care Firesetter Name Role Phone Jayme Rai MD Primary [...] 180 each 3 08/12/2024 08/12/20 25 Active dicyclomine (BENTYL) 20 mg tabletIndication s:Irritable bowel syndrome, unspecified type TAKE 1 TABLET BY MOUTH FOUR TIMES A DAY BEFORE MEALS AND NIGHTLY 360 tablet 2 11/01/2024 Active Active Problems Problem Noted Date Diagnosed Date Umbilical hernia without obstruction or gangrene 12/13/2024 Umbilical hernia without obstruction and without gangrene 09/20/2024 Encounters Date Type Department Care Team Description 12/13/2024 Telephone General Surgery [facility] [address] [phone] Abdirahman Bobo MA Scheduling Surgery 12/03/2024 Telephone General Surgery [facility] [address] [phone] Abdirahman Bobo MA from Last 3 Months Social History Tobacco [...] 09/20/2024 8:08 AM EST Plan of Treatment Upcoming Encounters Date Type Department Care Team (Latest Contact Info) Description 02/24/2025 10:30 AM EDT Pre-Admission Testing [facility] Pre-Admission Testing [address] [place] [phone] 03/03/2025 7:30 AM EDT Hospital Encounter [facility] Main OR [address] [place] [address] Meng Alvarado MD [address] [address] 03/03/2025 7:30 AM EDT - 03/03/2025 9:00 AM EDT Surgery [facility] Main OR [address] [place] [phone] Meng Alvarado MD [address] [address] OPEN REPAIR INCISIONAL HERNIA W/MESH [[id number] (CPT??)] 03/17/2025 10:30 AM EDT Office Visit General Surgery - [place] [address] [facility] [address] [place] [phone] Maycol Olea, 175 [facility] [address] [place] [address] Scheduled Procedures Name Priority Associated Diagnoses Date/Ti me REPAIR HERNIA INCISIONAL Umbilical hernia without obstruction or gangrene 03/03/2025 7:30 AM EDT Health Maintenance Due Date Last Done Comments DTaP,Tdap,and Td Vaccines (1 - Tdap) 11/19/1978 Pneumococcal Vaccine: 50+ Years (1 of 1 - PCV) 11/19/2009 Abdominal Aortic Aneurysm (AAA) Screen 07/17/2022 Cholesterol Screening (Lipid Panel) 07/17/2022 Colorectal Cancer Screening: Colonoscopy 07/17/2022 Depression Screening 07/17/2022 Hepatitis C Screening 07/17/2022 Medicare Annual Wellness Visit 07/17/2022 Social Influencers of Health Screening 07/17/2022 [...] age to complete this topic Insurance MEDICARE [facility] Care Teams Firesetter Relationship Specialty Start Date End Date Jayme Rai MD [address] [place] [address] PCP - General Internal Medicine 09/20/24
== END 2025-01-21 15:01 | disposition home or self-care (01) ==
LOC: HO.HKAS 14:16
PROVIDERS: PCP Internal Medicine; Visit Provider Internal Medicine Critical Care Medicine
DX: R80.9 Proteinuria, unspecified (principal); E66.812 Obesity, class 2
CPT/HCPCS: 99204

== ENCOUNTER 2025-01-21 14:16 | Outpatient (REF) | payer MEDICARE, SELFPAY ==
[2025-01-21 18:12] LABS: Appearance Urine Clear; Color Urine Dark Yellow; Glucose Urine UA Negative (Negative); Leukocyte Esterase Urine Trace (Negative); Nitrite Urine Negative (Negative); Specific Gravity - Urine >= 1.030 (1.005-1.025); UMIC TRIGGER UA YES; Urine Blood Negative (Negative); Urine Ketones Trace mg/dL (Negative); Urine Protein 30 (1+) mg/dL (Neg-Trace)
[2025-01-21 18:23] LABS: Bacteria Urine None Seen (None Seen); Hyaline Casts Urine 0-2 /LPF (0-2); RBC Urine 0-2 /HPF (0-2); Squamous Epithelial Cell Urine 0-2 /HPF (0-2); WBC Urine 0-5 /HPF (0-5)
[2025-01-21 18:37] LABS: Creatinine Urine 310.89 mg/dL; Microalbum/Creatinine Ratio Ur 17.6 ug/mg cr (<30); Total Protein Urine Random 32 mg/dL (<12)
== END 2025-01-21 14:17 | disposition home or self-care (01) ==
LOC: HO.HKASLDS 14:16
PROVIDERS: PCP Internal Medicine; Visit Provider Internal Medicine Critical Care Medicine
DX: R80.9 Proteinuria, unspecified (principal); E66.812 Obesity, class 2; N18.2 Chronic kidney disease, stage 2 (mild)
CPT/HCPCS: 81001; 82043; 82570; 84156; 99202

== ENCOUNTER 2025-01-30 14:42 | Outpatient (AMB) | payer MEDICARE, SELFPAY ==
--- NOTE | 2025-01-30 14:45 | MHC.OFFVIS ---
Intake Visit Reasons: 2WK PO: L TKA w/NE 01/14/25 Intake Note: Jason is a 64 year old male who presents today for a post operative visit status post left total knee arthroplasty, DOS: 01/14/[address] Yusef Mckeon. Patient reports he is doing well, states his pain is improving since his surgery. His current pain level is a 2-3 out of 10. Allergies oxycodone (Percocet) Allergy (Severe, Verified 01/30/25 14:49) Headache sulfa Allergy (Severe, Uncoded 01/30/25 14:49) Blister HPI HPI 2WK PO: L TKA w/NE 01/14/25: Details: 64-year-old gentleman returns to the office today 2 weeks status post left total knee arthroplasty on 01/14/[address] Mckeon. He is doing well ambulating with 1 crutch and he begins outpatient physical therapy tomorrow. PFSH Medical History Proteinuria Abdominal hernia Back pain Cervical radiculopathy IBS (irritable bowel syndrome) Prostate cancer Thyroid disease Papillary thyroid carcinoma DJD (degenerative joint disease) Pulmonary nodule Kidney stones History of headache Gout Asthma Hypothyroid HTN (hypertension) GERD (gastroesophageal reflux disease) Surgical History (Updated 01/30/25 @ 15:01 by Solitario Powell PA-C) Status post total left knee replacement Hx of foot surgery Hx of arthroscopy of left knee H/O colonoscopy History of prostatectomy History of thyroid surgery Hx of elbow surgery S/P TURP (status post transurethral resection of prostate) History of carpal tunnel release Hx of neck surgery History of back surgery Social History Household Members: Spouse Housing: House Are you a primary manager career to a significant other at home: No Do you presently have visiting nurse or other home services: No Comment: . Patient Tobacco Use Status: Never used Tobacco service: No Current occupational status: employed Current occupation: [employer] Review of Systems Const All systems reviewed & are unremarkable except as noted in HPI and below Physical Exam Extrem Other: Left knee incision clean dry and intact. Range of motion is-5- 90 degrees. Calf supple nontender neurovascularly intact. Assessment & Plan Assessment & Plan (1) Status post total left knee replacement: Code(s): Z96.652 - Presence of left artificial knee joint Category: Surgical Plan: New Point removed today Steri-Strips applied. He will continue working with physical therapy to improve his range of motion and quad strength. He can increase activities as tolerated. No driving for another 4 weeks. He will continue with Lovenox for another 4 weeks for DVT prophylaxis. And he will return on February [address] Mckeon for his routine 6 week appointment. Coding Level of Care Code Global (32819) Diagnoses Status post total left knee replacement Z96.652
--- OUTSIDE RECORDS SUMMARY | 2025-03-16 20:00 | XMS_ITS | Clinical Summary ---
Author Organization Unknown Care Team Providers Care Hair Salon Manager Name Role Phone RAFA RAJAN, ALEXIA Unavailable Unavailable RAJAT PT, NEHEMIAS Unavailable Unavailable GUILLERMO JUDGE, JANICE Unavailable Unavailable Payers Payer Name Policy Type Policy Number Effective Date Expira tion Date MEDICARE.NGS.PDGM [id number] HUMANA.MA2.PPO.C.AUTH [id number] Problems Condition Name Condition Details Condition Category Status Onset Date Resolution Date Last Treatment Date Treating Clinician Comments AFTERCARE FOLLOWING JOINT REPLACEMENT SURGERY Active 01-16 00:00: 00 PRESENCE OF LEFT ARTIFICIAL KNEE JOINT Active 01-16 00:00: 00 ESSENTIAL (PRIMARY) HYPERTENSION Active 01-16 00:00: 00 HYPOTHYROIDI SM, UNSPECIFIED Active 01-16 00:00: 00 GASTRO-ESOPH AGEAL REFLUX DISEASE WITHOUT ESOPHAGITIS Active 01-16 00:00: 00 PRISON (CURRENT) USE OF NON-STEROIDA L NON-INFLAM (NSAID) Active 01-16 00:00: 00 PRISON (CURRENT) USE OF ANTICOAGULAN TS Active 01-16 00:00: 00 Allergies, Adverse Reactions, Alerts Allergy Name Allergy Type Status Severity Reaction(s) Onset Date Inactive Date Treating Clinician Comments ACETAMINOPHE N Propensity to adverse reactions Active 01-17 14:58: 10 OXYCODONE Propensity to adverse reactions Active 01-17 14:58: 23 DRUG SULFA Propensity to adverse reactions Active 01-17 14:58: 56 Medications Ordered Medication Name Filled Medication Name Start Date Stop Date Current Medication? Ordering Clinician Indication Dosage Frequency Signature (SIG) Comments Components tramadol 50 mg tablet 4-13 00:00: 00 Yes [id number] PAIN 1 tablet DAILY 1 tablet DAILY (route: oral) Med Classific ation: Analgesic , Anti-infl ammatory or Antipyret ic acetaminoph en 325 mg tablet 01-17 00:00: 00 Yes [id number] PAIN, FEVER 2 tablet EVERY 6 HOURS 2 tablet EVERY 6 HOURS (route: oral) Med Classific ation: Analgesic , Anti-infl ammatory or Antipyret ic allopurinol 300 mg tablet 01-17 00:00: 00 Yes [id number] GOUT 1 tablet DAILY 1 tablet DAILY (route: oral) Med Classific ation: Gout and Hyperuric emia Therapy amlodipine 10 mg-olmesart an 40 mg tablet 01-17 00:00: 00 Yes [id number] HTN 1 tablet DAILY 1 tablet DAILY (route: oral) Med Classific ation: Cardiovas cular Therapy Agents celecoxib 200 mg capsule 01-17 00:00: 00 Yes [id number] PAIN 1 capsule 2 TIMES DAILY 1 capsule 2 TIMES DAILY (route: oral) Med Classific ation: Analgesic , Anti-infl ammatory or Antipyret ic dicyclomine 20 mg tablet 01-17 00:00: 00 Yes [id number] IBS 1 tablet DAILY 1 tablet DAILY (route: oral) Med Classific ation: Gastroint estinal Therapy Agents docusate sodium 100 mg capsule 01-17 00:00: 00 Yes [id number] CONSTIPATIO N 1 capsule 2 TIMES DAILY 1 capsule 2 TIMES DAILY (route: oral) Med Classific ation: Gastroint estinal Therapy Agents enoxaparin 40 mg/0.4 mL subcutaneou s syringe 01-17 00:00: 00 Yes [id number] ANTICOAGULA TION 40 mg DAILY 40 mg DAILY (route: subcutaneo us) Med Classific ation: Hematolog ical Agents fexofenadin e 180 mg tablet 01-17 00:00: 00 Yes [id number] ALLERGIES 1 tablet DAILY 1 tablet DAILY (route: oral) Med Classific ation: Respirato ry Therapy Agents Fiber (calcium polycarboph il) 625 mg tablet 01-17 00:00: 00 Yes [id number] SUPPLEMENT 2 tablet DAILY 2 tablet DAILY (route: oral) Med Classific ation: Gastroint estinal Therapy Agents ibuprofen 800 mg tablet 01-17 00:00: 00 Yes [id number] PAIN 1 tablet EVERY 8 HOURS 1 tablet EVERY 8 HOURS (route: oral) Med Classific ation: Analgesic , Anti-infl ammatory or Antipyret ic levothyroxi ne 200 mcg capsule 01-17 00:00: 00 Yes [id number] HYPOTHYROID ISM 1 capsule DAILY 1 capsule DAILY (route: oral) Med Classific ation: Endocrine nebivolol 20 mg tablet 01-17 00:00: 00 Yes [id number] HTN 1 tablet DAILY 1 tablet DAILY (route: oral) Med Classific ation: Cardiovas cular Therapy Agents omeprazole 40 mg capsule,del ayed release 01-17 00:00: 00 Yes [id number] GERD 1 capsule DAILY 1 capsule DAILY (route: oral) Med Classific ation: Gastroint estinal Therapy Agents oxycodone 5 mg tablet 01-17 00:00: 00 Yes [id number] PAIN 1 tablet EVERY 4 HOURS 1 tablet EVERY 4 HOURS (route: oral) Med Classific ation: Analgesic , Anti-infl ammatory or Antipyret ic Vital Signs Vital Name Observation Time Observation Value Commen ts Temperature 2025-01-27 14:04:00.000 98.2 [degF] Temperature 2025-01-24 10:52:00.000 98.1 [degF] Temperature 2025-01-22 09:59:00.000 98.8 [degF] Temperature 2025-01-20 12:09:00.000 98.2 [degF] Temperature 2025-01-17 13:16:00.000 97.5 [degF] BMI (%) 2025-01-17 13:16:00.000 35 kg/m2 Height 2025-01-17 13:16:00.000 69 [in_us] Pulse 2025-01-27 14:04:00.000 78 /min Pulse 2025-01-24 10:52:00.000 76 /min Pulse 2025-01-22 09:59:00.000 82 /min Pulse 2025-01-20 12:09:00.000 81 /min Pulse 2025-01-17 13:16:00.000 85 /min O2 Saturation (%) 2025-01-17 13:16:00.000 94 % Respirations 2025-01-27 14:04:00.000 18 /min Respirations 2025-01-24 10:52:00.000 18 /min Respirations 2025-01-22 09:59:00.000 18 /min Respirations 2025-01-20 12:09:00.000 18 /min Respirations 2025-01-17 13:16:00.000 18 /min Weight (lbs) 2025-01-17 13:16:00.000 240 [lb_av] Systolic Blood Pressure 2025-01-27 14:04:00.000 146 mm [Hg] Systolic Blood Pressure 2025-01-24 10:52:00.000 138 mm [Hg] Systolic Blood Pressure 2025-01-22 09:59:00.000 132 mm [Hg] Systolic Blood Pressure 2025-01-20 12:09:00.000 140 mm [Hg] Systolic Blood Pressure 2025-01-17 13:16:00.000 140 mm [Hg] Diastolic Blood Pressure 2025-01-27 14:04:00.000 84 mm [Hg] Diastolic Blood Pressure 2025-01-24 10:52:00.000 66 mm [Hg] Diastolic Blood Pressure 2025-01-22 09:59:00.000 82 mm [Hg] Diastolic Blood Pressure 2025-01-20 12:09:00.000 72 mm [Hg] Diastolic Blood Pressure 2025-01-17 13:16:00.000 70 mm [Hg] Plan of Treatment Planned Activity Planned Date Details Comments Future Scheduled Test AGENCY MAY PERFORM A RESUMPTION OF CARE VISIT FOLLOWING ANY HOSPITAL ADMISSION. PT TO EVALUATE, OBSERVE / ASSESS, AND MONITOR, AUTOS DISASSEMBLER TO OBSERVE AND MONITOR, PROVIDE SKILLED THERAPEUTIC INTERVENTION, ACTIVITY, EDUCATION, AND TRAINING TO ADDRESS; LE WEAKNESS, STIFFNESS, PAIN, DELAYED BALANCE REACTIONS AND FUNCTIONAL MOBILITY IMPAIRMENTS [code = AGENCY MAY PERFORM A RESUMPTION OF CARE VISIT FOLLOWING ANY HOSPITAL ADMISSION. PT TO EVALUATE, OBSERVE / ASSESS, AND MONITOR, AUTOS DISASSEMBLER TO OBSERVE AND MONITOR, PROVIDE SKILLED THERAPEUTIC INTERVENTION, ACTIVITY, EDUCATION, AND TRAINING TO ADDRESS; LE WEAKNESS, STIFFNESS, PAIN, DELAYED BALANCE REACTIONS AND FUNCTIONAL MOBILITY IMPAIRMENTS ] Future Scheduled Test BED MOBILI TY (PT/AUTOS DISASSEMBLER) [code = BED MOBILITY (PT/AUTOS DISASSEMBLER)] Future Scheduled Test SIT TO/FRO M STAND TRANSFERS (PT/AUTOS DISASSEMBLER) [code = SIT TO/FROM STAND TRANSFERS (PT/AUTOS DISASSEMBLER)] Future Scheduled Test PT/AUTOS DISASSEMBLER TO PROVIDE GAIT TRAINING FOR IMPROVED MOBILITY AND /OR TO NORMALIZE GAIT PATTERN [code = PT/AUTOS DISASSEMBLER TO PROVIDE GAIT TRAINING FOR IMPROVED MOBILITY AND /OR TO NORMALIZE GAIT PATTERN] Future Scheduled Test PT/AUTOS DISASSEMBLER TO PROVIDE STAIR TRAINING [code = PT/AUTOS DISASSEMBLER TO PROVIDE STAIR TRAINING] Future Scheduled Test NEUROMUSCU LAR RE-EDUCATION / BALANCE / POSTURAL CONTROL (PT) [code = NEUROMUSCULAR RE-EDUCATION / BALANCE / POSTURAL CONTROL (PT)] Future Scheduled Test THERAPEUTI C EXERCISES AND ESTABLISHING A HOME EXERCISE PROGRAM (PT/AUTOS DISASSEMBLER) [code = THERAPEUTIC EXERCISES AND ESTABLISHING A HOME EXERCISE PROGRAM (PT/AUTOS DISASSEMBLER)] Future Scheduled Test PT/AUTOS DISASSEMBLER TO IDENTIFY FALL RISK FACTORS; EDUCATE THE PATIENT/CAREGIVER ON WAYS TO REDUCE FALL RISK FACTORS AND ESTABLISH HOME EXERCISE PROGRAM TO MINIMIZE FALL RISK. MAY TEACH THE PATIENT FLOOR RECOVERY WHEN CLINICALLY APPROPRIATE [code = PT/AUTOS DISASSEMBLER TO IDENTIFY FALL RISK FACTORS; EDUCATE THE PATIENT/CAREGIVER ON WAYS TO REDUCE FALL RISK FACTORS AND ESTABLISH HOME EXERCISE PROGRAM TO MINIMIZE FALL RISK. MAY TEACH THE PATIENT FLOOR RECOVERY WHEN CLINICALLY APPROPRIATE] Future Scheduled Test PT/AUTOS DISASSEMBLER TO TEACH KNEE REPLACEMENT SELF-MANAGEMENT [code = PT/AUTOS DISASSEMBLER TO TEACH KNEE REPLACEMENT SELF-MANAGEMENT] Future Scheduled Test ORTHOPEDIC SURGICAL AFTERCARE - PT/AUTOS DISASSEMBLER TO MONITOR SURGICAL INCISION FOR EARLY SIGNS OF WOUND DETERIORATION AND/OR DVT. PT / AUTOS DISASSEMBLER MAY TEACH PATIENT APPLICATION OF CRYOTHERAPY FOR PAIN AND/OR SWELLING UP TO 20 MIN AT A TIME 3 TIMES PER DAY OVER INCISION/JOINT. [code = ORTHOPEDIC SURGICAL AFTERCARE - PT/AUTOS DISASSEMBLER TO MONITOR SURGICAL INCISION FOR EARLY SIGNS OF WOUND DETERIORATION AND/OR DVT. PT / AUTOS DISASSEMBLER MAY TEACH PATIENT APPLICATION OF CRYOTHERAPY FOR PAIN AND/OR SWELLING UP TO 20 MIN AT A TIME 3 TIMES PER DAY OVER INCISION/JOINT.] Future Scheduled Test PT / AUTOS DISASSEMBLER T O EDUCATE ON SKIN AND WOUND SELF-MANAGEMENT [code = PT / AUTOS DISASSEMBLER TO EDUCATE ON SKIN AND WOUND SELF-MANAGEMENT] Future Scheduled Test PT TO ASSE SS / AUTOS DISASSEMBLER TO MONITOR FOR AND REPORT EARLY SIGNS OF ANTICOAGULANT TOXICITY TO THE PHYSICIAN AND/OR THE RN CLINICAL FENCE RIDER FOR PHYSICIAN NOTIFICATION AND TO PROVIDE PATIENT/CAREGIVER EDUCATION ON ANTICOAGULANT THERAPY [code = PT TO ASSESS / AUTOS DISASSEMBLER TO MONITOR FOR AND REPORT EARLY SIGNS OF ANTICOAGULANT TOXICITY TO THE PHYSICIAN AND/OR THE RN CLINICAL FENCE RIDER FOR PHYSICIAN NOTIFICATION AND TO PROVIDE PATIENT/CAREGIVER EDUCATION ON ANTICOAGULANT THERAPY] Future Scheduled Test PT / AUTOS DISASSEMBLER T O MONITOR AND EDUCATE ON OXYGEN SATURATION DURING ADLS/IADLS, NOTIFY PHYSICIAN AND/OR THE RN CLINICAL FENCE RIDER FOR PHYSICIAN NOTIFICATION AND IF O2 SATS BELOW PHYSICIAN ORDERED PARAMETERS AFTER 10 MIN OF REST [code = PT / AUTOS DISASSEMBLER TO MONITOR AND EDUCATE ON OXYGEN SATURATION DURING ADLS/IADLS, NOTIFY PHYSICIAN AND/OR THE RN CLINICAL FENCE RIDER FOR PHYSICIAN NOTIFICATION AND IF O2 SATS BELOW PHYSICIAN ORDERED PARAMETERS AFTER 10 MIN OF REST] Goal Patient Goal - GET MY KNEE B ACK TO NORMAL Goal Provider Goal - Goal Provider Goal - PT LTG: PATIENT WILL DEMONSTRATE IMPROVED BED MOBILITY TO REDUCE THE RISK OF SKIN INTEGRITY ISSUES AND/OR PAIN FROM MIN ASSIST TO INDEPENDENT WITHIN 2 WEEKS Goal Provider Goal - PT STG: PATIENT WILL DEMONSTRATE IMPROVED ABILITY TO PERFORM SIT TO/FROM STAND TRANSFERS TO REDUCE THE RISK OF SKIN BREAKDOWN AND REDUCE FALL RISK FROM CGA TO INDEPENDENT WITHIN 2 WEEKS Goal Provider Goal - PT LTG: PATIENT WILL DEMONSTRATE REDUCED FALL RISK EVIDENCED BY IMPROVED SELF- SELECTED WALKING SPEED (SSWS CUT SCORE 0.6 TO 0.9 INDICATES MODERATE FALL RISK, 0.6 M/S INDICATES HIGH FALL RISK) FROM 0.5 TO 0.7 M/S WITHIN 2 WEEKS Goal Provider Goal - PT LTG: PATIENT WILL DEMONSTRATE IMPROVED ABILITY TO SAFELY NEGOTIATE STAIRS FROM CGA TO INDEPENDENT WITH CANE USING RAILING IN ORDER TO ATTEND MEDICAL APPOINTMENTS WITHIN 2 WEEKS Goal Provider Goal - PT LTG: PATIENT WILL DEMONSTRATE REDUCED FALL RISK EVIDENCED BY TUG TEST (CUT SCORE >11 SECONDS INDICATES INCREASED FALL RISK) IMPROVING FROM 39 TO 20 SECONDS WITHIN 2 WEEKS Goal Provider Goal - PT LTG: PATIENT WILL DEMONSTRATE IMPROVED FUNCTIONAL STRENGTH EVIDENCED BY FIVE TIMES SIT TO STAND TEST (CUT SCORE >12 SECONDS INDICATES AN INCREASED FALL RISK) IMPROVING FROM UNABLE TO 20 SECONDS WITHIN 2 WEEKS IN ORDER TO INCREASE STRENGTH FOR TRANSFERS AND STAIRS Goal Provider Goal - PT LTG: PATIENT/CAREGIVER WILL DEMONSTRATE ADHERENCE TO FALL REDUCTION SELF-MANAGEMENT AND REDUCING FALL RISK FACTORS TO MINIMIZE FALL RISK BY END OF EPISODE. PT LTG: PATIENT WILL BE INDEPENDENT WITH IMPLEMENTATION OF HEP WITHIN 2 WEEKS Goal Provider Goal - PT GOAL: PATIENT WILL DEMONSTRATE OPTIMAL OUTCOMES, INCLUDING INCREASED ROM AND STRENGTH AND FUNCTIONAL MOBILITY FOLLOWING KNEE SURGERY BY END OF EPISODE. Goal Provider Goal - PT GOAL: PATIENT WILL DEMONSTRATE NORMAL HEALING FOLLOWING SURGERY WITH NO COMPLICATIONS BY END OF EPISODE. Goal Provider Goal - PT GOAL: PATIENT/CAREGIVER WILL BE ABLE TO VERBALIZE UNDERSTANDING OF SKIN AND WOUND EDUCATION, SIGNS/SYMPTOMS TO REPORT, WELL SELF-MANAGEMENT AND LIFE-STYLE CHANGES TO IMPROVE QUALITY OF LIFE AND REDUCE CAREGIVER BURDEN BY END OF EPISODE. Goal Provider Goal - PT LTG: PATIENT WILL NOT EXHIBIT SIGNS AND SYMPTOMS OF ANTICOAGULANT TOXICITY THROUGHOUT EPISODE OF CARE. Goal Provider Goal - PT LTG: PATIENT WILL MAINTAIN OXYGEN SATURATION WITHIN PHYSICIAN ORDERED PARAMETERS THROUGHOUT EPISODE OF CARE. Encounters Start Date/Time End Date/Time Encounter Type Admission Type Attending [facility] Department Encounter ID Discharge Date Discharge Status Discharge Condition Discharge Reason Percent Goals Met 2025-01-17 00:00:00 2025-03-17 00:00:00 Outpatient NEW ADMISSION NEHEMIAS EARL [facility] [id number] 12.50
== END 2025-01-30 16:00 | disposition home or self-care (01) ==
PROVIDERS: PCP Internal Medicine; Visit Provider Physician Assistant
DX: Z96.652 Presence of left artificial knee joint (principal)
CPT/HCPCS: 99024

== ENCOUNTER → 2025-01-30 14:42 | Outpatient (BNVA) | payer MEDICARE, SELFPAY | PROVIDERS: PCP Internal Medicine; Visit Provider Physician Assistant | DX: Z96.652 Presence of left artificial knee joint (principal) | CPT/HCPCS: 99212 ==

== ENCOUNTER 2025-02-24 13:07 | Outpatient (AMB) | payer MEDICARE, SELFPAY ==
--- NOTE | 2025-02-24 13:18 | MHC.OFFVIS ---
Intake Visit Reasons: 6 WK PO: L TKA w/NE 01/14/25 Intake Note: Jason is a 64 year old male who presents today for a post operative visit status post left total knee arthroplasty, DOS: 01/14/25. Patient reports that he is doing well, on 02/20/25 he reports that he felt a pop in the knee. He was seen with physical therapy after this incident and was told everything looked good. l Allergies oxycodone (Percocet) Allergy (Severe, Verified 01/30/25 14:49) Headache sulfa Allergy (Severe, Uncoded 01/30/25 14:49) Blister HPI HPI 6 WK PO: L TKA w/NE 01/14/25: Details: Jason is a 64 year old male who presents today for a post operative visit status post left total knee arthroplasty, DOS: 01/14/25. Patient reports that he is doing well, on 02/20/25 he reports that he felt a pop in the knee. He was seen with physical therapy after this incident and was told everything looked good. Otherwise he states he is doing well. He has good motion. He is working on physical therapy. His pain is well-controlled. [facility] Medical History Proteinuria Abdominal hernia Back pain Cervical radiculopathy IBS (irritable bowel syndrome) Prostate cancer Thyroid disease Papillary thyroid carcinoma DJD (degenerative joint disease) Pulmonary nodule Kidney stones History of headache Gout Asthma Hypothyroid HTN (hypertension) GERD (gastroesophageal reflux disease) Surgical History (Updated 01/30/25 @ 15:01 by Solitario Powell PA-C) Status post total left knee replacement Hx of foot surgery Hx of arthroscopy of left knee H/O colonoscopy History of prostatectomy History of thyroid surgery Hx of elbow surgery S/P TURP (status post transurethral resection of prostate) History of carpal tunnel release Hx of neck surgery History of back surgery Social History Household Members: Spouse Housing: House Are you a primary adult care manager to a significant other at home: No Do you presently have visiting nurse or other home services: No Comment: . Patient Tobacco Use Status: Never used Tobacco service: No Current occupational status: employed Current occupation: [employer] Physical Exam Extrem Other: Incision clean dry and intact 0-125 degrees motion Stable to varus and valgus stress Assessment & Plan Assessment & Plan (1) Status post total left knee replacement: Code(s): Z96.652 - Presence of left artificial knee joint Category: Surgical Plan: Status post left knee replacement doing well. We will complete his Lovenox and discontinue it next week. Continue physical therapy. Follow up in 6 weeks. Coding Level of Care Code Global (56008) Diagnoses Status post total left knee replacement Z96.652
== END 2025-02-24 14:09 | disposition home or self-care (01) ==
LOC: HO.HOS 13:07
PROVIDERS: PCP Internal Medicine; Visit Provider Orthopaedic Surgery
DX: Z96.652 Presence of left artificial knee joint (principal)
CPT/HCPCS: 99024

== ENCOUNTER → 2025-02-24 13:07 | Outpatient (BNVA) | payer MEDICARE, SELFPAY | PROVIDERS: PCP Internal Medicine; Visit Provider Orthopaedic Surgery | DX: Z96.652 Presence of left artificial knee joint (principal); Z98.890 Other specified postprocedural states | CPT/HCPCS: 99212 ==

== ENCOUNTER 2025-03-17 11:07 | Outpatient (REF) | payer MEDICARE, SELFPAY ==
--- NOTE | ~2025-03-17 | XR_ITS ---
EXAMINATION: XR KNEE 3 VIEWS LEFT HISTORY: M25.562 - Pain in left knee COMPARISON: Comparison is made with the prior examination dated 01/14/2025. FINDINGS: AP, lateral, and sunrise patellar views of the left knee are submitted. The patient is again noted to be status post left total knee arthroplasty. The orthopedic elements are in anatomic alignment. There is no radiographic evidence of loosening. There is no fracture or dislocation. There is a moderate joint effusion. The soft tissues are otherwise unremarkable. XR/XR knee LT 3V IMPRESSION: Status post left total knee arthroplasty. Lateral joint effusion. Electronically signed by: Eric Shea MD 03/17/2025 11:51 AM EDT
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
== END 2025-03-17 11:08 | disposition home or self-care (01) ==
LOC: HO.HOSX 11:07
PROVIDERS: PCP Internal Medicine; Visit Provider Physician Assistant
DX: Z47.1 Aftercare following joint replacement surgery (principal); M17.11 Unilateral primary osteoarthritis, right knee; M25.361 Other instability, right knee; M25.462 Effusion, left knee; M25.562 Pain in left knee; Z96.652 Presence of left artificial knee joint
CPT/HCPCS: 73562; 99212

== ENCOUNTER → 2025-03-17 11:22 | Outpatient (BNV) | payer MEDICARE, SELFPAY | PROVIDERS: PCP Internal Medicine; Visit Provider Radiology Diagnostic Radiology | DX: M25.462 Effusion, left knee (principal) | CPT/HCPCS: 73562 ==

== ENCOUNTER 2025-03-17 12:01 | Outpatient (AMB) | payer MEDICARE, SELFPAY ==
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
[2025-03-17 12:12] VITALS: BMI 35.1
== END 2025-03-17 12:32 | disposition home or self-care (01) ==
LOC: HO.HOS 12:01
PROVIDERS: PCP Internal Medicine; Visit Provider Physician Assistant
DX: Z96.652 Presence of left artificial knee joint (principal)
CPT/HCPCS: 99024

== ENCOUNTER 2025-04-07 08:49 | Outpatient (AMB) | payer MEDICARE, SELFPAY ==
[2025-04-07 08:52] VITALS: BMI 35.1
--- NOTE | 2025-04-07 08:52 | MHC.OFFVIS ---
Vital Signs 04/07/25 08:52 Height 5 ft 9 in Weight 238 lb BMI 35.1 Intake Visit Reasons: 6 WK PO: L TKA w/NE 01/14/25 Intake Note: Jason is a 64 year old male who presents today for a post operative appointment about 6 weeks s/p Left TKA 01/14/25.patient states he currently has no concerns but noted that he is still attending physical therapy for both knees. Recovery is going good had a set back due to a recent fall approximately 2 weeks ago. Allergies oxycodone (Percocet) Allergy (Severe, Verified 03/17/25 12:13) Headache sulfa Allergy (Severe, Uncoded 03/17/25 12:13) Blister HPI HPI 6 WK PO: L TKA w/NE 01/14/25: Details: Jason is a 64 year old male who presents today for a post operative appointment about 6 weeks s/p Left TKA 01/14/25.patient states he currently has no concerns but noted that he is still attending physical therapy for both knees. recovery is going good had a set back due to a recent fall about 2 weeks ago. His primary complaint today is his right knee. He is knee pain, mostly medial, that occasionally gives out on him in prevents him from ambulating comfortably. [facility] Medical History (Updated 04/07/25 @ 09:44 by Yusef Mckeon MD) Proteinuria Abdominal hernia Back pain Cervical radiculopathy IBS (irritable bowel syndrome) Prostate cancer Thyroid disease Papillary thyroid carcinoma DJD (degenerative joint disease) Pulmonary nodule Kidney stones History of headache Gout Asthma Hypothyroid HTN (hypertension) GERD (gastroesophageal reflux disease) Surgical History Status post total left knee replacement Hx of foot surgery Hx of arthroscopy of left knee H/O colonoscopy History of prostatectomy History of thyroid surgery Hx of elbow surgery S/P TURP (status post transurethral resection of prostate) History of carpal tunnel release Hx of neck surgery History of back surgery Social History Household Members: Spouse Housing: House Are you a primary career technology teacher to a significant other at home: No Do you presently have visiting nurse or other home services: No Comment: . 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 No effusion. 0-120 degrees motion. Good quad control. Stable to varus and valgus stress. Right knee with tenderness to palpation medial compartment. No effusion. Stable to varus and valgus stress. Full range of motion. Office Procedures Joint Inj/Aspir; Non-Pain Clin Joint Injection/Drain Details: Injected 1 mL of Decadron and 3 mL 1% lidocaine and 3 mL of 0.25% Marcaine. Site was prepped using aseptic technique. Patient tolerated the procedure well. Shoulders, Hips, Knees, Knee Large Joint Injection : Right Knee Coding Procedure code (CPT) selection complete Assessment & Plan Assessment & Plan (1) Status post total left knee replacement: Code(s): Z96.652 - Presence of left artificial knee joint Category: Surgical Plan: Jason is doing well status post left knee replacement. He should continue strengthening with physical therapy. He can see me back in 3-4 months. He is still recovering and I recommend he stay out of work for at least an additional 4 weeks. (2) Localized osteoarthritis of right knee: Code(s): M17.11 - Unilateral primary osteoarthritis, right knee Category: Medical Plan: Injected the right knee without complication. He will see me back in 4 months to discuss options if she so desires. Coding Level of Care Code Est Pt Level 3 (26956) Global (88751) Diagnoses Status post total left knee replacement Z96.652 Localized osteoarthritis of right knee M17.11 CPT Codes Shoulders, Hips, Knees, - Knee Large Joint Injection : Right Knee ([id number])
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
== END 2025-04-07 09:31 | disposition home or self-care (01) ==
LOC: HO.HOS 08:50
PROVIDERS: PCP Internal Medicine; Visit Provider Orthopaedic Surgery
DX: M17.11 Unilateral primary osteoarthritis, right knee (principal); Z96.652 Presence of left artificial knee joint
CPT/HCPCS: 20610; 99024; 99213

== ENCOUNTER → 2025-04-07 08:49 | Outpatient (BNVA) | payer MEDICARE, SELFPAY | PROVIDERS: PCP Internal Medicine; Visit Provider Orthopaedic Surgery | DX: M17.11 Unilateral primary osteoarthritis, right knee (principal); Z96.652 Presence of left artificial knee joint; Z98.890 Other specified postprocedural states | CPT/HCPCS: 20610; 99212; J0665; J1100; J2003 ==

== ENCOUNTER 2025-04-25 07:11 | Outpatient (RCR) | payer MEDICARE, OTHER, SELFPAY ==
--- NOTE | 2025-01-31 12:11 | MHC.PT.EP ---
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 Mckeon. Pt was DC home from acute hospital setting on 01/16/25, had home PT which ended 01/29/25 had post op appt on 01/30/25 with romulo taken out. His 6 weeks post op appt is set for 02/24/25. Pt exhibits weakness of quadriceps, impaired strength, edema, and decreased ROM/functional mobility. Pt will benefit from attending PT services at a frequency of 2-3/week x 6-8 weeks. Notes has been icing knee 2-3x/daily using tramadol/extra strength tylenol/celebrex for pain notes has DC narcotics. Pt currently not driving, using AD for crutch. Pt expressed that he has a hernia repair booked currently booked for DOS 03/03/25 at [facility]. He was asking about coming off of the lovenox earlier than 4 weeks- therapist called the [facility] [place] [place] ortho office to bring this question to Dr. Mckeon. I spoke with [facility] nurse navigator who states she had no awareness of this plan for the patient. Pt states he spoke to Dr. Mckeon about this and that he was aware of this. Post initial evaluation pt was issued written HEP sheets including: AP, isometric QS at 0 and 30, SAQ, SLR into flexion, AAROM heel slide in sitting and supine, seated HS stretch, seated gastroc stretch, and icing of L knee in passive extension with towel heel prop. Pt exhibits positive motivation for recovery in PT. Frequency and Duration: The patient will be seen 2-3x/week Short Term Goals: 1. AAROM L knee ext to 0. (IR: -5 degrees). 2. AAROM L knee flexion to 100. (IR: 90 degrees). 3. Pt will demonstrate good eccentric control during SLR. (IR: control with SLR) 4. Pt will ascend/descend a 6 inch step with good dynamic balance. (IR:not leading with L LE, step to gait). Penitentiary Goals: 1. AAROM> AROM L knee ext to 0 degrees. 2. AAROM>AROM L knee flexion to 120. 3. Wean from use of AD for community distances >500ft. 4. Strengthen L knee to 5/5. 5. 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 Treatment Plan: Modalities to reduce pain, spasms and effusion. Manual therapy to restore motion and function. Therapeutic exercise to improve strength and flexibility. Neuromuscular re-education for posture and balance. Therapeutic activities to return to functional activities of daily living. Electronically signed by: Tessa Trinidad, PT, DPT Please sign and return to therapist. Thank you for your referral.
--- NOTE | 2025-02-24 10:46 | MHC.PT.OD ---
[facility] [place] Office [place] Office [place] Office [address] Paty Sutton [address] [phone] F: [phone] F: [phone] F: [phone] F: [phone] Physical Therapy Daily Note Diagnosis: PT eval and treat, Z96.652 Presence of left artificial knee joint, status post left total knee replacement, L TKA 01/14/25, book after 01/30/25 signed by RADHA Powell on 01/13/25 Date of Surgery: 01/14/25 Date of Evaluation: 01/31/25 Date of Treatment: 02/20/25 Treatments to Date: 10 Cancellations to Date: No Shows to Date: Authorized Visits: 5 Insurance End Date: Precautions/ Contraindications:L TKA 01/14/25 Dr. Mckeon Subjective: Pt notes he was working on a window in his basement on night, was sitting and leaning with knee flexed/twisted heard a pop. Had sharp pain, was sore into the next day but since that time now able to do stairs better, not having as much pain. He also states he ran out of pain medication and has been taking just tylenol since Monday. Pain Score and Location: 2-3 L knee Objective Flowsheet: Tests & Measures No more steri-strips on knee. Incision healing well. No significant edema noted in knee. Quadriceps muscle appears intact with contraction. Evidence of bruising inferior aspect of medial incision (has been there per pt after weed-wacking). AROM 0 to 120. Able to negotiate stairs reciprocally without heavy reliance on rail. Exercises Bike seat #8 x 10 minutes > seat #7 x 5 minutes able to start with fwd revolution x 15 min total for warm-up Assesment of knee pre bike this date; then bike. Step-up laterally from 6 inch step x 2 set 10R from L>R and R>L, BAPs board level 2 DF/PF/IV/EV/CW/CCW x 2 set 10R, step-up and down from airex pad x 2 sets 10R, then laterally from airex pad x 2 sets 10R, hooklying bridge x 10R x 3 sec hold with advanced ROM for knee flexion, then bridge with march x 5R each side (issued bridge and bridge with taps for home). Passive knee ext with ice and 2# cuff weight at end of session Step up with L LE leading L with use of double rail x 2 sets 10R, then trial of 6 inch leading with L LE first x 2 sets 10R, step-down from 2 inch and then 4 inch leading with R LE first x 2 sets 10R, AAROM flexion with STM from PT to distal knee to 120, education for self-care/scar CFM massage to thin scar and reduce sensitivity over incision. Educated no swimming or lotion over knee. Educated to discuss pool clearance with surgeon at upcoming appt. Lateral step up and down from 6 inch step x 2 sets 10R L>R and R>L, standing heel touches L LE in stance x 2 sets 10R from 2 inch step. Modalities Ice to left knee at end of session x 10 mi with passive knee extension stretch in heel prop 2# weight over knee Assessment: 02/24/25: Jason presents to office expressing history of twist/flexion load through L knee while sitting/reaching to work on a window when in his basement on 02/20/25. He expressed episode of pop with pain which resolved within a day of incident. He has DC use of std cane, denies instability, and presents without noted increase in edema. He does have a small bruise medial inferior aspect of his knee which has been present since he completed yardwork last week. He expresses question of scar tissue releasing and notes improved ability to ascend/descend stairs since that incident. Upon screen his quadricep appears intact with good contraction. He is scheduled to see Dr. Mckeon today for a follow up at 1:30pm. 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 He has been attending therapy at a frequency of 3x/week but will likely benefit from tapering his frequency to 1-2x/week. We will continue to focus on advancement of strength>CKC, core stabilization, and balance trainig> conditioning to prepare for future RTW demands. He has a stationary bike at home and uses this daily. He has resumed driving. He inquires about clearance to swim/enter water s/p L TKA. He will be away from PT next week for vacation. 02/20/25: Jason is progressing well. AAROM 0 to 120. He is able to ascend stairs consistently but inconsistently is negotiating stairs reciprocally. He carries cane with him but has not been using in recent days. He has inquiry for clearance for swimming. He notes he has resumed lawn care. He ran out of celebrex medication last week and noticed a flare of pain with stopping this. He has since received refill (refill request was submitted prior to running out). He will be seeing Dr. Mckeon next week for a follow up. 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 02/19/25: Pt is progressing well. His has linear, healed incision. He achieved 118 deg AAROM during heel slides with strap, and 120 deg during heel slides with gentle manual assist x 1 rep. Continued eccentric step downs and pt had difficulty with 4 steps. He had increased soreness and decreased tolerance to standing exercise this date. Ended with ice, pt tolerated well. Next session plan to trial descending stairs with unilateral railing and SPC to simulate pts deck entrance at home as appropriate 02/13/25: AAROM flexion to 118. Incision healing well. Pt educated no swimming at this time- to obtain clearance from surgeon prior. Pt presents with std cane not using for heavy support. Discussed holding end range stretch for longer duration to make gains in ROM. Phone call placed to [facility], spoke with Naomy re: need for refill on celebrex (Pt to be called by office re: script status). 02/12/25: Pt continues to be motivated to participate and is progressing well s/p L TKA. He achieved AAROM flexion 115 deg today. Continued quad strengthening and pt demonstrates good quad activation without lag. He was challenged with 6 forward step ups but tolerated well. Ended with ice to L knee for pain and swelling management. Continue to progress per pt tolerance 02/10/25: Pt doing well with regard to recovery overall. Continues to rely on std cane for community ambulation. Presents with no steri-strips on incision today, healing well with no concern for infection noted. Advanced AAROM flexion to 115 degrees. Fatigued with SLR but no quad lag. Pt in more pain today, appeared to be triggered after TKE standing> AAROM flexion stretches. Pt has obtained restorator bike for home has been using with good outcomes. 02/07/25: Initiated step-up, step-down activity with use of bilateral rail. Pt presents with 5 steri-strips on knee. Pt was given education of how to obtain stationary restorator bike for home to ease mobility. -5 to 110 degrees AAROM today. 02/05/25: Pt is motivated to participate and is compliant with HEP and icing. His incision appears to be healing well; no redness or drainage noted and [address] this date. He achieved 108 degrees L knee AAROM flexion and is lacking 5 degrees L knee extension. He demonstrates good quad activation with mat level therex. He has good pacing throughout exercises however he requires occasional cues for breathing and to avoid holding his breath with good carry over. Continue to progress per pt tolerance 02/03/25; Pt states he communicated with Dr. Mckeon directly following last session/message with [facility] and he has cancelled his hernia surgery for now (to be revisited after 3 months time from TKA). Jason is doing well with regard to recovery, today presents with 9 steri-strips on knee (grossly -8 AAROM -5 to AAROM 105 degrees). He was educated in the benefit of holding his knee flexion stretches 10-20 seconds to tolerance with VC's for breathing. He was tolerant of passive knee extension with heel prop but was challenged ~5 minutes with this today and heel prop was removed afterwards. 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 Pt was DC home from acute hospital setting on 01/16/25, had home PT which ended 01/29/25 had post op appt on 01/30/25 with romulo taken out. His 6 weeks post op appt is set for 02/24/25. Pt exhibits weakness of quadriceps, impaired strength, edema, and decreased ROM/functional mobility. Pt will benefit from attending PT services at a frequency of 2-3/week x 6-8 weeks. Notes has been icing knee 2-3x/daily using tramadol/extra strength tylenol/celebrex for pain notes has DC narcotics. Pt currently not driving, using AD for crutch. Pt expressed that he has a hernia repair booked currently booked for DOS 03/03/25 at [facility]. He was asking about coming off of the lovenox earlier than 4 weeks- therapist called the [facility] office to bring this question to Dr. Mckeon. I spoke with Mica nurse navigator who states she had no awareness of this plan for the patient. Pt states he spoke to Dr. Mckeon about this and that he was aware of this. Post initial evaluation pt was issued written HEP sheets including: AP, isometric QS at 0 and 30, SAQ, SLR into flexion, AAROM heel slide in sitting and supine, seated HS stretch, seated gastroc stretch, and icing of L knee in passive extension with towel heel prop. Pt exhibits positive motivation for recovery in PT. PT Plan: FOllow up with Dr. Mckeon later today. Short Term Goals: 1. AAROM L knee ext to 0. (IR: -5 degrees). 2. AAROM L knee flexion to 100. (IR: 90 degrees). 3. Pt will demonstrate good eccentric control during SLR. (IR: control with SLR) 4. Pt will ascend/descend a 6 inch step with good dynamic balance. (IR:not leading with L LE, step to gait). Clinical Project Assistant Goals: 1. AAROM> AROM L knee ext to 0 degrees. 2. AAROM>AROM L knee flexion to 120. 3. Wean from use of AD for community distances >500ft. 4. Strengthen L knee to 5/5. 5. 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 Electronically signed by: Tessa Trinidad, PT, DPT
--- NOTE | 2025-03-17 12:19 | MHC.PT.OD ---
[facility] [place] [facility] [place] [facility] [place] [facility] [address] Paty Sutton [address] [phone] F: [phone] F: [phone] F: [phone] F: [phone] Physical Therapy Daily Note Diagnosis: PT eval and treat, Z96.652 Presence of left artificial knee joint, status post left total knee replacement, L TKA 01/14/25, book after 01/30/25 signed by RADHA Powell on 01/13/25 Date of Surgery: 01/14/25 Date of Evaluation: 01/31/25 Date of Treatment: 03/17/25 Treatments to Date: 16 Cancellations to Date: No Shows to Date: Authorized Visits: 5 Insurance End Date: Precautions/ Contraindications:L TKA 01/14/25 Dr. Mckeon Subjective: Pt reports history of two falls on 03/14/25 (one in the garage backwards hitting head on a scooter). Pt reports sore but did not seek medical attention. Pain Score and Location: 2-3 L knee Objective Flowsheet: Tests & Measures Pt denies headaches, no change in vision, no nausea. Denies LOC. Abrasion on R knee, L posterior thigh. Pt reports his R knee buckled. Exercises Held Pt reports a history of fall x 2 trials with history of hitting head, no LOC. Denies headache, denies nausea, denies visual changes. Pt reports a second fall later in the day resulting in abrasion posterior L knee and anterior R knee. Pt with edema L knee and sensitive to touch. AROM -5 to 110. Pt girth measurements: R knee 43 cm supra, 40 jt line, 38 infra; L knee: 41.5 supra, jt line 40.0, infra 38 cm Encouraged use of cane to reduce gait deviation and icing to reduce edema. Emphasis on education for Review of stretching program, benefit of low impact pool activity, walking program, use of bike small amounts several times daily, benefit of icing several times daily, goals of PT moving ahead management of edema/ not overdoing, elevation and icing of L LE Prone with towel roll under distal quad for STM and IASTM to distal hamstring/proximal gastroc soleus musculature using HG #9 strumming technique in effort to ease mm tension and hamstring/gastroc soleus flexibility Scar tissue mobilization with good mobility noted throughout incision Step-up 4 inch x 2 sets 10R leading with L LE first then lateral step up>down x 2 sets 10R, step down L LE in stance x 2 set 10R 2 inch>4inch> 6 inch x 10R each [facility] [address] [place] [address] [address] [place] [address] Office Visit Report Signed Patient: Jason Olea JMR#: [id number] : 1960Acct:[id number] Age/Sex: 64 / MADM/SER Date: 02/24/25 Loc: HO.HOSADM/SER Time:1307 Attending Provider: Yusef Mckeon MD cc: Jayme Rai Intake Visit Reasons: 6 WK PO: L TKA w/NE 01/14/25 Intake Note: Jason is a 64 year old male who presents today for a post operative visit status post left total knee arthroplasty, DOS: 01/14/25. Patient reports that he is doing well, on 02/20/25 he reports that he felt a pop in the knee. He was seen with physical therapy after this incident and was told everything looked good. l Allergies oxycodone (Percocet) Allergy (Severe, Verified 01/30/25 14:49) Headache sulfa Allergy (Severe, Uncoded 01/30/25 14:49) Blister HPI HPI 6 WK PO: L TKA w/NE 01/14/25: Details: Jason is a 64 year old male who presents today for a post operative visit status post left total knee arthroplasty, DOS: 01/14/25. Patient reports that he is doing well, on 02/20/25 he reports that he felt a pop in the knee. He was seen with physical therapy after this incident and was told everything looked good. Otherwise he states he is doing well. He has good motion. He is working on physical therapy. His pain is well-controlled. [facility] Medical History Proteinuria Abdominal hernia Back pain Cervical radiculopathy IBS (irritable bowel syndrome) Prostate cancer Thyroid disease Papillary thyroid carcinoma DJD (degenerative joint disease) Pulmonary nodule Kidney stones History of headache Gout Asthma Hypothyroid HTN (hypertension) GERD (gastroesophageal reflux disease) Surgical History (Updated 01/30/25 @ 15:01 by Solitaroi Powell PA-C) Status post total left knee replacement Hx of foot surgery Hx of arthroscopy of left knee H/O colonoscopy History of prostatectomy History of thyroid surgery Hx of elbow surgery S/P TURP (status post transurethral resection of prostate) History of carpal tunnel release Hx of neck surgery History of back surgery Social History Household Members: Spouse Housing: House Are you a primary in home caregiver to a significant other at home: No Do you presently have visiting nurse or other home services: No Comment: . Patient Tobacco Use Status: Never used Tobacco service: No Current occupational status: employed Current occupation: [employer] Physical Exam Extrem Other: Incision clean dry and intact 0-125 degrees motion Stable to varus and valgus stress Assessment & Plan Assessment & Plan (1) Status post total left knee replacement: Code(s): Z96.652 - Presence of left artificial knee joint Category: Surgical Plan: Status post left knee replacement doing well. We will complete his Lovenox and discontinue it next week. Continue physical therapy. Follow up in 6 weeks. Coding Level of Care Code Global (13861) Diagnoses Modalities Ice to left knee at end of session x 10 min with passive knee extension stretch in heel prop Assessment: 03/17/25:Jason presented to the office expressing history of 2 falls on 03/14/25, first occurring in garage fell backwards, hit head when working around shelving. Denied LOC, denies change in visioion. Denied headache. Second fall occurred later in day on 03/14/25 when descending stairs, reports R knee gave out. Pt fell twisting L valgus force/stress to L TKA. Pt now with edema and TTP medial joint line/ L medial quadriceps. Pt L knee swollen, bruising noted posterior L thigh. Pt was encouraged to phone PCP notify history of head strike, injury, and falls. Therapist phoned [facility] orthopedics to notify and request patient be seen. Pt did not perform exercise this date until he could be evaluated by orthopedics. AROM -5 to 110. Painful with QS, quadricep appears intact, TTP medial aspect L knee. Held activity this date. Called [facility] orthopedics requesting patient be seen. Pt encouraged to reach out to PCP for screening due to head strike. Pt scheduled for hernia surgery on 04/28/25 and will be leaving for vacation on 03/21/25. Await orthopedic outcome. 03/14/25: Jason expressing decreased tolerance for step-downs. Admits has been going down stairs sideways. Educated re: normalizing mechanics and going slowly working smaller heights first>advancing as able. Pt encouraged work on step downs daily at home to tolerance. Mild edema noted L knee overall. 03/12/25: Jason continues to be motivated to participate. He continues to have mild swelling throughout L knee. Session started with stepper for warm up, followed by heel slides to improve ROM. Continued quad strengthening and pt fatigued with quad set + SLR. STM/IASTM #9 performed to L hamstrings and proximal calf musculature with increased muscular restrictions and tenderness noted. Continued posterior chain stretching followed by ice and pt reports improvements at end of session. Continue to progress per pt tolerance 03/10/25: Jason presents with increased edema and pain reported in L knee. Drove to DC and then was lifting/loading supplies in and out of the vehicle/camper repeatedly (notes irritation from this). Pt admits he has been more active (this morning painted basement wall and vacuumed pool before PT today). Held intensity of CKC due to edema/pain. Encouraged stretching, pool program for cooling/low impact, and icing to ease sx. AAROM remains ~0-120. Pt encouraged to consider tapering frequency in PT however pt requesting to continue at a frequency of 3x/week. Pt verbalized reduction in knee pain post IASTM to distal HS. Pt benefitted from review of HEP/stretch program. 02/27/25: Pt doing very well with regard to L knee. Pt has not been taking tylenol the past few days notes increased pain. 02/25/25: Jason expressing concerns about RTW timelines, verbalizes feeling tired did not sleep well last night. Pt states he stopped taking tylenol. Trialed ROCKTAPE support for R knee with (+) reduction in sx. OA in that knee as well. Pt hernia repair booked for 04/28/25. 02/24/25: Jason presents to office expressing history of twist/flexion load through L knee while sitting/reaching to work on a window when in his basement on 02/20/25. He expressed episode of pop with pain which resolved within a day of incident. He has DC use of std cane, denies instability, and presents without noted increase in edema. He does have a small bruise medial inferior aspect of his knee which has been present since he completed yardwork last week. He expresses question of scar tissue releasing and notes improved ability to ascend/descend stairs since that incident. Upon screen his quadricep appears intact with good contraction. He is scheduled to see Dr. Mckeon today for a follow up at 1:30pm. 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 He has been attending therapy at a frequency of 3x/week but will likely benefit from tapering his frequency to 1-2x/week. We will continue to focus on advancement of strength>CKC, core stabilization, and balance trainig> conditioning to prepare for future RTW demands. He has a stationary bike at home and uses this daily. He has resumed driving. He inquires about clearance to swim/enter water s/p L TKA. He will be away from PT next week for vacation. 02/20/25: Jason is progressing well. AAROM 0 to 120. He is able to ascend stairs consistently but inconsistently is negotiating stairs reciprocally. He carries cane with him but has not been using in recent days. He has inquiry for clearance for swimming. He notes he has resumed lawn care. He ran out of celebrex medication last week and noticed a flare of pain with stopping this. He has since received refill (refill request was submitted prior to running out). He will be seeing Dr. Mckeon next week for a follow up. 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 02/19/25: Pt is progressing well. His has linear, healed incision. He achieved 118 deg AAROM during heel slides with strap, and 120 deg during heel slides with gentle manual assist x 1 rep. Continued eccentric step downs and pt had difficulty with 4 steps. He had increased soreness and decreased tolerance to standing exercise this date. Ended with ice, pt tolerated well. Next session plan to trial descending stairs with unilateral railing and SPC to simulate pts deck entrance at home as appropriate 02/13/25: AAROM flexion to 118. Incision healing well. Pt educated no swimming at this time- to obtain clearance from surgeon prior. Pt presents with std cane not using for heavy support. Discussed holding end range stretch for longer duration to make gains in ROM. Phone call placed to [facility] orthopedics, spoke with Naomy re: need for refill on celebrex (Pt to be called by office re: script status). 02/12/25: Pt continues to be motivated to participate and is progressing well s/p L TKA. He achieved AAROM flexion 115 deg today. Continued quad strengthening and pt demonstrates good quad activation without lag. He was challenged with 6 forward step ups but tolerated well. Ended with ice to L knee for pain and swelling management. Continue to progress per pt tolerance 02/10/25: Pt doing well with regard to recovery overall. Continues to rely on std cane for community ambulation. Presents with no steri-strips on incision today, healing well with no concern for infection noted. Advanced AAROM flexion to 115 degrees. Fatigued with SLR but no quad lag. Pt in more pain today, appeared to be triggered after TKE standing> AAROM flexion stretches. Pt has obtained restorator bike for home has been using with good outcomes. 02/07/25: Initiated step-up, step-down activity with use of bilateral rail. Pt presents with 5 steri-strips on knee. Pt was given education of how to obtain stationary restorator bike for home to ease mobility. -5 to 110 degrees AAROM today. 02/05/25: Pt is motivated to participate and is compliant with HEP and icing. His incision appears to be healing well; no redness or drainage noted and [address] this date. He achieved 108 degrees L knee AAROM flexion and is lacking 5 degrees L knee extension. He demonstrates good quad activation with mat level therex. He has good pacing throughout exercises however he requires occasional cues for breathing and to avoid holding his breath with good carry over. Continue to progress per pt tolerance 02/03/25; Pt states he communicated with Dr. Mckeon directly following last session/message with [facility] orthopedics and he has cancelled his hernia surgery for now (to be revisited after 3 months time from TKA). Jsaon is doing well with regard to recovery, today presents with 9 steri-strips on knee (grossly -8 AAROM -5 to AAROM 105 degrees). He was educated in the benefit of holding his knee flexion stretches 10-20 seconds to tolerance with VC's for breathing. He was tolerant of passive knee extension with heel prop but was challenged ~5 minutes with this today and heel prop was removed afterwards. 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 Mckeon. Pt was DC home from acute hospital setting on 01/16/25, had home PT which ended 01/29/25 had post op appt on 01/30/25 with romulo taken out. His 6 weeks post op appt is set for 02/24/25. Pt exhibits weakness of quadriceps, impaired strength, edema, and decreased ROM/functional mobility. Pt will benefit from attending PT services at a frequency of 2-3/week x 6-8 weeks. Notes has been icing knee 2-3x/daily using tramadol/extra strength tylenol/celebrex for pain notes has DC narcotics. Pt currently not driving, using AD for crutch. Pt expressed that he has a hernia repair booked currently booked for DOS 03/03/25 at [facility]. He was asking about coming off of the lovenox earlier than 4 weeks- therapist called the [facility] ortho office to bring this question to Dr. Mckeon. I spoke with [facility] nurse navigator who states she had no awareness of this plan for the patient. Pt states he spoke to Dr. Mckeon about this and that he was aware of this. Post initial evaluation pt was issued written HEP sheets including: AP, isometric QS at 0 and 30, SAQ, SLR into flexion, AAROM heel slide in sitting and supine, seated HS stretch, seated gastroc stretch, and icing of L knee in passive extension with towel heel prop. Pt exhibits positive motivation for recovery in PT. PT Plan: Fllow up with orthopedics re: fall and need for screening. Short Term Goals: 1. AAROM L knee ext to 0. (IR: -5 degrees). 2. AAROM L knee flexion to 100. (IR: 90 degrees). 3. Pt will demonstrate good eccentric control during SLR. (IR: control with SLR) 4. Pt will ascend/descend a 6 inch step with good dynamic balance. (IR:not leading with L LE, step to gait). [employer]icker Goals: 1. AAROM> AROM L knee ext to 0 degrees. 2. AAROM>AROM L knee flexion to 120. 3. Wean from use of AD for community distances >500ft. 4. Strengthen L knee to 5/5. 5. 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 Electronically signed by: Tessa Trinidad, PT, DPT
--- NOTE | 2025-04-07 08:20 | MHC.PT.OD ---
[facility] [place] [facility] [place] [facility] [address] [facility] [phone] F: [phone] F: [phone] F: [phone] Physical Therapy Daily Note Diagnosis: PT eval and treat, Z96.652 Presence of left artificial knee joint, status post left total knee replacement, L TKA 01/14/25, book after 01/30/25 signed by RADHA Powell on 01/13/25 Date of Surgery: 01/14/25 Date of Evaluation: 01/31/25 Date of Treatment: 04/07/25 Treatments to Date: 20 Cancellations to Date: No Shows to Date: Authorized Visits: 5 Insurance End Date: Precautions/ Contraindications:L TKA 01/14/25 Dr. Mckeon Subjective: Pt presents with no brace on R knee, reports L knee instability in recent days. Presents with std cane. States he feels he is not ready to go back to work. Is scheduled for hernia surgery on 04/28/25. Pain Score and Location: 3, 0 L knee, R knee Objective Flowsheet: Tests & Measures Advised patient to removed danish wrap- no longer has significant edema, wrap was making indentation in his leg. Supra patella 45 cm, jt line 39.5, infra 38 infra patell. Initial extension ROM -8 to passive AAROM flexion 118 degrees. Exercises Seated on SCI-FIT bike seat #10 x 10 min start of session ten minutes for full revolution Supine heel slides 2x10 reps B (to 115*) Supine quad sets 5 sec hold x10 reps B SLR into flexion x15R with mid range ROM 4 forward step ups with B UE support x 10 reps B DID Not do step down as pt did not have hinged knee brace and he reports active buckling of R knee Seated HS stretch x 3R x 30 sec hold Ice to L>R knee Pt educated to call PCP office re: screening due to history of head strike. Pt not on blood thinners. Pt denies headache, change in vision, nausea. Prone with towel roll under distal quad for STM and IASTM to distal hamstring/proximal gastroc soleus musculature using HG #9 strumming technique in effort to ease mm tension and hamstring/gastroc soleus flexibility Scar tissue mobilization with good mobility noted throughout incision Step-up 4 inch x 2 sets 10R leading with L LE first then lateral step up>down x 2 sets 10R, step down L LE in stance x 2 set 10R 2 inch>4inch> 6 inch x 10R each [address] [place] [address] Office Visit Report Signed with Yony Patient: Jason Olea JMR#: [id number] : 1960Acct:[id number] Age/Sex: 64 / MADM/SER Date: 03/17/25 Loc: HO.HOSADM/SER Time:1201 Attending Provider: Solitario Powell PA-C cc: Jayme Rai~ ADDENDUM ?unilateral primary osteoarthritis?of the right knee : M17.11, Addendum Documented By:Solitario Powell03/17/25 1402 Addendum Signed By:<Electronically signed by Solitario Powell>03/17/25 1402 Vital Signs 03/17/25 12:12 Height 5 ft 9 in Weight 238 lb BMI 35.1 Intake Visit Reasons: PO- L TKA w/NE 01/14/25 Intake Note: Jason is a 64 year old male who presents today for a post operative visit status post left total knee arthroplasty, DOS: 01/14/25. Patient reports concerns of swelling, he mentions having a fall this past week. He is questioning if he is to continue taking celebrex as he received a new prescription of this medication. Allergies oxycodone (Percocet) Allergy (Severe, Verified 03/17/25 12:13) Headache sulfa Allergy (Severe, Uncoded 03/17/25 12:13) Blister HP HPI PO- L TKA w/NE 01/14/25: Details: 64-year-old gentleman presents to the office today for a follow-up left total knee arthroplasty on 01/14/2025. He states he fell twice monday, once was falling back onto his scooter and the other was when he was going down the stairs his right leg gave out and he had his left leg planted. He states as he fell he felt a pull along the medial aspect of the left knee. He complains of recurrent instability on the right knee. Left knee is swollen. He is ambulating with a cane. [facility] Medical History Proteinuria Abdominal hernia Back pain Cervical radiculopathy IBS (irritable bowel syndrome) Prostate cancer Thyroid disease Papillary thyroid carcinoma DJD (degenerative joint disease) Pulmonary nodule Kidney stones History of headache Gout Asthma Hypothyroid HTN (hypertension) GERD (gastroesophageal reflux disease) Surgical History Status post total left knee replacement Hx of foot surgery Hx of arthroscopy of left knee H/O colonoscopy History of prostatectomy History of thyroid surgery Hx of elbow surgery S/P TURP (status post transurethral resection of prostate) History of carpal tunnel release Hx of neck surgery History of back surgery Social History Household Members: Spouse Housing: House Are you a primary healthcare administration internship to a significant other at home: No Do you presently have visiting nurse or other home services: No Comment: . Patient Tobacco Use Status: Never used Tobacco service: No Current occupational status: employed Current occupation: [employer] Review of Systems Const All systems reviewed & are unremarkable except as noted in HPI and below Physical Exam Vital Signs: BMI result Body Mass Index 35.1 Extrem Other: Left knee incision is well healed. He does have a moderate joint effusion. There is some warmth however this is likely associated to the a fusion. No evidence of infection. He has full extension and flexion. No palpable defect along the quad or patellar tendon. He does have bony tenderness along the medial femoral condyle and proximal tibia. No gross laxity on the left knee with varus valgus stress when compared to contralateral side. Calf is supple and nontender neurovascularly intact. Results Reviewed Results Reviewed: X-rays of the left knee were obtained today and reviewed by me show no fracture, no dislocation, no sign of prosthetic loosening. Assessment & Plan Assessment & Plan (1) Status post total left knee replacement: Code(s): Z96.652 - Presence of left artificial knee joint Category: Surgical Plan: He does not appear to have any tendon rupture on exam. No evidence of infection. I explained it is possible he could have sprain of the MCL however in the absence of laxity there is no further treatment at this time. I explained continue with physical therapy and allowing this to run its course. He will use an Danish wrap to help with the effusion and refill his Celebrex to help with swelling. For the right knee I did give him a hinged knee brace to help with stability. He has an appointment on April [address] Mckeon for routine follow-up. He will see us back sooner if there is any concerns. Orders: Orders XR knee LT 3V Today M25.562 - Pain in left knee Coding Level of Care Code Global (00082) Diagnoses Status post total left knee replacement Z96.652 Documented By:Solitario PowellC003/17/25 1203 [facility] [address] [place] [address] Drive [address] [place] [address] XRay Report Signed Patient: Jason Olea JMR#: [id number] : 1960Acct:[id number] Age/Sex: 64 / MADM Date: 03/17/25 Loc: [facility] Attending Dr: Solitario Powell PA-C Ordering Physician: Solitario Powell PA-C Date of Service: 03/17/25 Procedure(s): XR knee LT 3V Accession Number(s): [id number] cc: Solitario Powell PA-C; Jayme Rai EXAMINATION: XR KNEE 3 VIEWS LEFT HISTORY: M25.562 - Pain in left knee COMPARISON: Comparison is made with the prior examination dated 01/14/2025. FINDINGS: AP, lateral, and sunrise patellar views of the left knee are submitted. The patient is again noted to be status post left total knee arthroplasty. The orthopedic elements are in anatomic alignment. There is no radiographic evidence of loosening. There is no fracture or dislocation. There is a moderate joint effusion. The soft tissues are otherwise unremarkable. XR/XR knee LT 3V IMPRESSION: Status post left total knee arthroplasty. Lateral joint effusion. Electronically signed by: Eric Shea MD 03/17/2025 11:51 AM EDT Dictated By:rEic Shea MD Signed By:<Electronically signed by Eric Shea MD in OV>03/17/25 1151 Modalities Ice to left knee end of session x 10 min passive stretch Assessment: 04/07/25: Pt will be seeing Dr. Mckeon today at 9:15. Jason will be 12 weeks post op L TKA tomorrow. He has been noncompliant with use of wearing hinged knee brace since last week. Pt was advised to DC use of L knee danish wrap as he no longer appears to need it for edema. He is stiff and reports inconsistent daily use of his stationary bike despite previous education to do. He notes difficulty descending>ascending stairs. He notes pain rated 6/10 with AAROM heel slides but was able to achieve flexion of 120 degrees. He is scheduled for hernia repair on 04/28/25. He has been encouraged to use hinged DONJOY brace for his R knee to reduce risk of falls due to instability. He has been encouraged to perform gentle painfree strengthening tasks for his R knee as well as his left. 04/02/25: Pt presents ambulating with SPC. Continued bike for warm up with good tolerance. He achieved 115 deg L knee AAROM flexion. Continued quad strengthening with good quad activation with quad set, however pt continues to be challenged with SLR. Initiated 4 forward step ups with B UE support with difficulty on LLE, however no buckling or instability noted. He continues to have posterior chain tightness noted with hamstring stretching. Ended with ice for pain and swelling management. He would continue to benefit from quad strengthening and I encouraged him to perform his HEP consistently 03/31/25: Pt present with std cane (using in L UE educated to use in R UE if L knee is worse they all tell me that. ), DONJOy hinged brace for R knee, and danish wrap (wrapped too tight with overlap on L knee). Pt encouraged he can probably DC use of the danish wrap as it is holding his knee in slight flexion stretch (lacking knee extension stretch) and is no longer as swollen as it was last week. AAROM 0 to 118, start of session pre activity -8 degrees. 03/19/25: Pt presents ambulating with rollator. Initiated gentle AAROM and quad strengthening. Exercises performed bilaterally to tolerance. His bruising to L posterior thigh is turning yellow and is healing. He continues to have mild, diffuse swelling throughout L knee and is TTP throughout medial knee. Ended with ice to L knee. No adverse response to PT this date. Progress as tolerated 03/17/25:Jason presented to the office expressing history of 2 falls on 03/14/25, first occurring in garage fell backwards, hit head when working around shelving. Denied LOC, denies change in vision. Denied headache, not on blood thinners. Second fall occurred later in day on 03/14/25 when descending stairs, reports R knee gave out when going down sideways. Pt fell twisting L valgus force/stress to L TKA. Pt now with edema and TTP medial joint line/ L medial quadriceps. Pt L knee swollen, bruising noted posterior L thigh with abrasion. Pt was encouraged to phone PCP notify history of head strike, injury, and falls. Therapist phoned [facility] orthopedics to notify and request patient be seen today for xray L knee and evaluation. Pt did not perform exercise this date in clinic until he could be evaluated by orthopedics. AROM -5 to 110. Painful with QS, quadricep appears intact. TTP medial aspect L knee. Held activity this date. Pt encouraged to reach out to PCP for screening due to head strike. Pt scheduled for hernia surgery on 04/28/25 and will be leaving for vacation on 03/21/25. Await orthopedic outcome. Addendum 03/18/25: Pt was seen by orthopedics 03/17/24 (see note). Had x-ray (see results (+) effusion). Quad intact. Pt given hinged knee brace for R LE to be worn in PT and when ambulating. 03/14/25: Jason expressing decreased tolerance for step-downs. Admits has been going down stairs sideways. Educated re: normalizing mechanics and going slowly working smaller heights first>advancing as able. Pt encouraged work on step downs daily at home to tolerance. Mild edema noted L knee overall. 03/12/25: Jason continues to be motivated to participate. He continues to have mild swelling throughout L knee. Session started with stepper for warm up, followed by heel slides to improve ROM. Continued quad strengthening and pt fatigued with quad set + SLR. STM/IASTM #9 performed to L hamstrings and proximal calf musculature with increased muscular restrictions and tenderness noted. Continued posterior chain stretching followed by ice and pt reports improvements at end of session. Continue to progress per pt tolerance 03/10/25: Jasno presents with increased edema and pain reported in L knee. Drove to [place] and then was lifting/loading supplies in and out of the vehicle/camper repeatedly (notes irritation from this). Pt admits he has been more active (this morning painted basement wall and vacuumed pool before PT today). Held intensity of CKC due to edema/pain. Encouraged stretching, pool program for cooling/low impact, and icing to ease sx. AAROM remains ~0-120. Pt encouraged to consider tapering frequency in PT however pt requesting to continue at a frequency of 3x/week. Pt verbalized reduction in knee pain post IASTM to distal HS. Pt benefitted from review of HEP/stretch program. 02/27/25: Pt doing very well with regard to L knee. Pt has not been taking tylenol the past few days notes increased pain. 02/25/25: Jason expressing concerns about RTW timelines, verbalizes feeling tired did not sleep well last night. Pt states he stopped taking tylenol. Trialed ROCKTAPE support for R knee with (+) reduction in sx. OA in that knee as well. Pt hernia repair booked for 04/28/25. 02/24/25: Jason presents to office expressing history of twist/flexion load through L knee while sitting/reaching to work on a window when in his basement on 02/20/25. He expressed episode of pop with pain which resolved within a day of incident. He has DC use of std cane, denies instability, and presents without noted increase in edema. He does have a small bruise medial inferior aspect of his knee which has been present since he completed yardwork last week. He expresses question of scar tissue releasing and notes improved ability to ascend/descend stairs since that incident. Upon screen his quadricep appears intact with good contraction. He is scheduled to see Dr. Mckeon today for a follow up at 1:30pm. 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 He has been attending therapy at a frequency of 3x/week but will likely benefit from tapering his frequency to 1-2x/week. We will continue to focus on advancement of strength>CKC, core stabilization, and balance trainig> conditioning to prepare for future RTW demands. He has a stationary bike at home and uses this daily. He has resumed driving. He inquires about clearance to swim/enter water s/p L TKA. He will be away from PT next week for vacation. 02/20/25: Jason is progressing well. AAROM 0 to 120. He is able to ascend stairs consistently but inconsistently is negotiating stairs reciprocally. He carries cane with him but has not been using in recent days. He has inquiry for clearance for swimming. He notes he has resumed lawn care. He ran out of celebrex medication last week and noticed a flare of pain with stopping this. He has since received refill (refill request was submitted prior to running out). He will be seeing Dr. Mckeon next week for a follow up. 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 02/19/25: Pt is progressing well. His has linear, healed incision. He achieved 118 deg AAROM during heel slides with strap, and 120 deg during heel slides with gentle manual assist x 1 rep. Continued eccentric step downs and pt had difficulty with 4 steps. He had increased soreness and decreased tolerance to standing exercise this date. Ended with ice, pt tolerated well. Next session plan to trial descending stairs with unilateral railing and SPC to simulate pts deck entrance at home as appropriate 02/13/25: AAROM flexion to 118. Incision healing well. Pt educated no swimming at this time- to obtain clearance from surgeon prior. Pt presents with std cane not using for heavy support. Discussed holding end range stretch for longer duration to make gains in ROM. Phone call placed to [facility] orthopedics, spoke with Naomy re: need for refill on celebrex (Pt to be called by office re: script status). 02/12/25: Pt continues to be motivated to participate and is progressing well s/p L TKA. He achieved AAROM flexion 115 deg today. Continued quad strengthening and pt demonstrates good quad activation without lag. He was challenged with 6 forward step ups but tolerated well. Ended with ice to L knee for pain and swelling management. Continue to progress per pt tolerance 02/10/25: Pt doing well with regard to recovery overall. Continues to rely on std cane for community ambulation. Presents with no steri-strips on incision today, healing well with no concern for infection noted. Advanced AAROM flexion to 115 degrees. Fatigued with SLR but no quad lag. Pt in more pain today, appeared to be triggered after TKE standing> AAROM flexion stretches. Pt has obtained restorator bike for home has been using with good outcomes. 02/07/25: Initiated step-up, step-down activity with use of bilateral rail. Pt presents with 5 steri-strips on knee. Pt was given education of how to obtain stationary restorator bike for home to ease mobility. -5 to 110 degrees AAROM today. 02/05/25: Pt is motivated to participate and is compliant with HEP and icing. His incision appears to be healing well; no redness or drainage noted and [address] this date. He achieved 108 degrees L knee AAROM flexion and is lacking 5 degrees L knee extension. He demonstrates good quad activation with mat level therex. He has good pacing throughout exercises however he requires occasional cues for breathing and to avoid holding his breath with good carry over. Continue to progress per pt tolerance 02/03/25; Pt states he communicated with Dr. Mckeon directly following last session/message with [facility] orthopedics and he has cancelled his hernia surgery for now (to be revisited after 3 months time from TKA). Jason is doing well with regard to recovery, today presents with 9 steri-strips on knee (grossly -8 AAROM -5 to AAROM 105 degrees). He was educated in the benefit of holding his knee flexion stretches 10-20 seconds to tolerance with VC's for breathing. He was tolerant of passive knee extension with heel prop but was challenged ~5 minutes with this today and heel prop was removed afterwards. 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 Mckeon. Pt was DC home from acute hospital setting on 01/16/25, had home PT which ended 01/29/25 had post op appt on 01/30/25 with romulo taken out. His 6 weeks post op appt is set for 02/24/25. Pt exhibits weakness of quadriceps, impaired strength, edema, and decreased ROM/functional mobility. Pt will benefit from attending PT services at a frequency of 2-3/week x 6-8 weeks. Notes has been icing knee 2-3x/daily using tramadol/extra strength tylenol/celebrex for pain notes has DC narcotics. Pt currently not driving, using AD for crutch. Pt expressed that he has a hernia repair booked currently booked for DOS 03/03/25 at [facility]. He was asking about coming off of the lovenox earlier than 4 weeks- therapist called the [facility] ortho office to bring this question to Dr. Mckeon. I spoke with Mica nurse navigator who states she had no awareness of this plan for the patient. Pt states he spoke to Dr. Mckeon about this and that he was aware of this. Post initial evaluation pt was issued written HEP sheets including: AP, isometric QS at 0 and 30, SAQ, SLR into flexion, AAROM heel slide in sitting and supine, seated HS stretch, seated gastroc stretch, and icing of L knee in passive extension with towel heel prop. Pt exhibits positive motivation for recovery in PT. PT Plan: Follow up with Dr. Mckeon today Short Term Goals: 1. AAROM L knee ext to 0. (IR: -5 degrees). 2. AAROM L knee flexion to 100. (IR: 90 degrees). 3. Pt will demonstrate good eccentric control during SLR. (IR: control with SLR) 4. Pt will ascend/descend a 6 inch step with good dynamic balance. (IR:not leading with L LE, step to gait). [facility] Goals: 1. AAROM> AROM L knee ext to 0 degrees. 2. AAROM>AROM L knee flexion to 120. 3. Wean from use of AD for community distances >500ft. 4. Strengthen L knee to 5/5. 5. 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 Electronically signed by: Tessa Trinidad, PT, DPT
== END 2025-06-16 12:48 | disposition home or self-care (01) ==
LOC: HO.PTS 07:11
PROVIDERS: PCP Internal Medicine; Visit Provider Physician Assistant
DX: Z96.652 Presence of left artificial knee joint (principal)
CPT/HCPCS: 97110; 97116; 97140; 97162; 97530; 97535

== ENCOUNTER 2025-08-04 08:02 | Outpatient (AMB) | payer MEDICARE, SELFPAY ==
--- OUTSIDE RECORDS SUMMARY | 2025-08-04 08:07 | XMS_ITS | Clinical Summary ---
Author Organization [facility] Address [address] [facility] [address] [place] [phone] Phone Care Team Providers Care Instructor Industrial Design Name Role Phone Unavailable Primary Care Provider Unavailabl e Encounters Date Type Department Care Team Description 06/13/2025 Telephone [facility] [address] [place] [address] Paola Bond MD DAMON Form Mailed from Last 3 Months Social History Tobacco Use Types Packs/Day Years Used Date Smoking Tobacco: Never Assessed Education Answer Date Recorded Are you interested in more education? Not on tanmay e 06/13/2025 Are you concerned about learning? Not on file 06/13/2025 No 06/13/2025 No 06/13/2025 Digital Access Answer Date Recorded No 06/13/2025 No 06/13/2025 Reliable internet access at home? Not on file 06/13/2025 Device with a working camera? Not on file Sex and Gender Information Value Date Recorded Sex Assigned at Not on file Legal Sex Male 7:21 PM EDT Gender Identity Not on file Sexual Orientation Not on file Plan of Treatment Health Maintenance Due Date Last Done Comments Adult Td,Tdap Booster 1959 LIPID PANEL 1959 DEPRESSION SCREENING 1971 SMOKING Hx and SMOKELESS TOB ACCO SCREENING 11/19/1972 HEPATITIS C SCREENING 11/19/1977 HIV ONE-TIME SCREENING (18-6 5 YEARS) 11/19/1977 COLOGUARD 11/19/2004 COLONOSCOPY 11/19/2004 COLORECTAL CANCER SCREENING 11/19/2004 FIT TEST 11/19/2004 FOBT 11/19/2004 SIGMOIDOSCOPY 11/19/2004 VIRTUAL COLONOSCOPY 11/19/2004 PNEUMOCOCCAL VACCINES (50+ y ears) (1 of 1 - PCV) 11/19/2009 ZOSTER VACCINES (1 of 2) 11/19/2009 INFLUENZA VACCINE (#1) 2025 COVID-19 VACCINE ( - 2024-2 6 season) 2025 RSV VACCINE (1 - 1-dose 75+ series) 11/19/2034 HEPATITIS A VACCINES Aged Out No long er eligible based on patient's age to complete this topic HIB VACCINES Aged Out No longer eligi ble based on patient's age to complete this topic MENINGOCOCCAL VACCINES (ACWY) Aged Out No longer eligible based on patient's age to complete this topic MENINGOCOCCAL VACCINES (B) Aged Out N o longer eligible based on patient's age to complete this topic Medical Devices Not on file Additional Source Comments The information contained in this document represents components of the legal health record. It is not the complete legal health record.[facility]
--- OUTSIDE RECORDS SUMMARY | 2025-08-04 08:07 | XMS_ITS | Clinical Summary ---
Author Organization [facility] [address] [facility] [address] Address [address] [place] [address] Phone Care Team Providers Care Sheet Metal Duct Installer Name Role Phone Jayme Rai MD Primary Care Provider + [phone] Allergies Active Allergy Reactions Criticality Noted Date Comments Oxycodone-Acetaminophen Headache 09/20/2024 Sulfadiazine Wound 09/20/2024 Medications amLODIPine (NORVASC) 10 mg tablet Take 1 tablet (10 mg total) by mouth 1 (one) time each day. Active levothyroxine (TIROSINT) 200 mcg capsule Take by mouth. Active nebivoloL (BYSTOLIC) 20 mg tablet Take 1 tablet (20 mg total) by mouth 1 (one) time each day. Active omeprazole (PriLOSEC) [address] capsuleIndicatio [...] Encounters Date Type Department Care Team Description 05/13/2025 1:15 PM EDT Office Visit General Surgery [facility] [address] [facility] [address] [place] [address] Meng Alvarado MD Umbilical hernia without obstruction and without gangrene (Primary Dx) from Last 3 Months Surgical History Surgery Date Site/Laterality Comments OTHER SURGICAL HISTORY SPINAL FUSION cerivical KNEE ARTHROPLASTY Left TOE SURGERY Bilateral CARPAL TUNNEL RELEASE Bilateral ELBOW SURGERY Medical History Medical History Date Comments Hypertension Asthma Hypothyroidism thriod removal GERD (gastroesophageal reflux disease) Irritable bowel syndrome occasio ambika Chronic kidney disease stones Cancer ([facility] V24, [facility] V28) thyroid, prostate Social History Tobacco Use Types Packs/Day Years Used Date Smoking Tobacco: Never Smokeless Tobacco: Never Tobacco Cessation:Counseling Given: Not Answered Alcohol Use Standard Drinks/Week Comments Never 0 (1 standard drink = 0.6 oz pur e alcohol) Interpersonal Safety Answer Date Record ed Physical Abuse Unrecognized value 04/28/2025 Verbal Abuse Unrecognized value 04/28/2025 Sex and Gender Information Value Date Recorded Sex Assigned at Not on file Legal Sex Male 3:37 AM EST Gender Identity Not on file Sexual Orientation Not on file Last Filed Vital Signs Vital Sign Reading Time Taken Comments Blood Pressure 118/75 05/13/2025 1:30 PM EDT Pulse 70 05/13/2025 1:30 PM EDT Temperature 36.4 C (97.6 F) 04/28/2025 11:24 AM EDT Respiratory Rate 20 04/28/2025 11:24 AM EDT Oxygen Saturation 98% 04/28/2025 11:24 AM EDT Inhaled Oxygen Concentration - - Weight 104 kg (228 lb 8 oz) 05/13/2025 1:30 PM E DT Height 175.3 cm (5' 9 ) 04/28/2025 8:40 AM EDT Body Mass Index 33.74 04/28/2025 8:40 AM EDT Plan of Treatment Health Maintenance Due Date Last Done Comments Colorectal Cancer Screening: Colonoscopy 1959 DTaP,Tdap,and Td Vaccines (1 - Tdap) 11/19/1978 Pneumococcal Vaccine: 50+ Years (1 of 1 - PCV) 11/19/2009 Cholesterol Screening (Lipid Panel) 07/17/2022 Hepatitis C Screening 07/17/2022 Medicare Annual Wellness Visit 07/17/2022 Social Influencers of Health Screening 07/17/2022 Depression Screening 08/14/2024 COVID-19 Vaccine ( season) 2025 05/19/2024, 06/27/2023, 06/11/2022, Additional history exists Influenza Vaccine (#1) 2025 , 06/27/2023, 06/11/2022, Additional history exists Falls Risk Assessment 04/28/2026 04/28/2025 RSV Immunization Adult Patients (1 - 1-dose 75+ series) 11/19/2034 Zoster Vaccines Completed 08/22/2020, 06/04/2020 HIB Vaccines Aged Out No longer eligi [...] age to complete this topic Medical Devices Implanted Type Area Manager Configuration Device Identifier Shelf Expiration Date Model / Serial / Lot Joints Knee Joints Knee Left: Knee Mesh Ventralex St 1.7in Sm Crumrod W/Strap - Sn/A - [id number] Implanted:Qty: 1 on 04/28/2025 by Meng Alvarado MD at [facility] Surgical Mesh Sling Implants N/A: Abdomen CR BARD - DAVOL DIV [id number] 06/10/2026 [id number] / N/A / [id number] Insurance MEDICARE [employer] Advance Directives * Full Code - Default (Latest Code Status on File) Date Activated Date Inactivated Comments 04/28/2025 8:30 AM 04/28/2025 2:08 PM This is orde r is used when code status has not been discussed with the patient, or code status is otherwise unknown/unconfirmed To update the patient's code status, place a code status order. Do not modify or discontinue any currently active code status orders. Care Teams Sheet Metal Duct Installer Relationship Specialty Start Date End Date Jayme Rai MD [address] [place] [address] PCP - General Internal Medicine 09/20/24
--- NOTE | 2025-08-04 08:19 | MHC.OFFVIS ---
Vital Signs 08/04/25 08:22 Height 5 ft 9 in Weight 283 lb BMI 41.8 Intake Visit Reasons: OV-Right knee F/U in 4 months Intake Note: annia is a 64 year old male who presents today for a follow up of her Right Knee OA. At her last visit on 04/04/25 the Right Knee was injected. Patient reports that the last injection was helpful and he would like to repeat today. He reports that he has upcoming dental work and he is requesting Abx refills. Hx of Left TKA 01/14/25 Allergies oxycodone (Percocet) Allergy (Severe, Verified 03/17/25 12:13) Headache sulfa Allergy (Severe, Uncoded 03/17/25 12:13) Blister HPI HPI OV-Right knee F/U in 4 months: Details: annia is a 64 year old male who presents today for a follow up of her Right Knee OA. At her last visit on 04/04/25 the Right Knee was injected. Patient reports that the last injection was helpful and he would like to repeat today. He reports that he has upcoming dental work and he is requesting Abx refills. Hx of Left TKA 01/14/25 HPI Comments Details: Interval History The patient is a 64-year-old male presenting with follow-up for right knee pain and instability management. The patient reports that his left knee, which underwent replacement, is doing better, although he still experiences some numbness. He estimates his recovery at about 80 to 85% and anticipates full recovery by January. Regarding the right knee, the patient describes persistent pain throughout the knee and a tendency for it to give out, particularly when ascending stairs. Despite being able to walk up to three miles, he feels the knee is unstable and describes it as feeling 'bone on bone,' although imaging does not support this finding. The patient is planning to have the right knee replaced in January and is currently receiving an injection as the last intervention before surgery. He also reports upcoming dental work requiring antibiotics, which he plans to complete before the knee surgery. Results [facility] Medical History Proteinuria Abdominal hernia Back pain Cervical radiculopathy IBS (irritable bowel syndrome) Prostate cancer Thyroid disease Papillary thyroid carcinoma DJD (degenerative joint disease) Pulmonary nodule Kidney stones History of headache Gout Asthma Hypothyroid HTN (hypertension) GERD (gastroesophageal reflux disease) Surgical History Status post total left knee replacement Hx of foot surgery Hx of arthroscopy of left knee H/O colonoscopy History of prostatectomy History of thyroid surgery Hx of elbow surgery S/P TURP (status post transurethral resection of prostate) History of carpal tunnel release Hx of neck surgery History of back surgery Social History Household Members: Spouse Housing: House Are you a primary customer care consultant to a significant other at home: No Do you presently have visiting nurse or other home services: No Comment: . 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 Mild antalgic gait observed. Vital Signs: BMI result Body Mass Index 41.8 Office Procedures Joint Inj/Aspir; Non-Pain Clin Joint Injection/Drain Details: Injected 1 mL of Decadron and 3 mL 1% lidocaine and 3 mL of 0.25% Marcaine. Site was prepped using aseptic technique. Patient tolerated the procedure well. Shoulders, Hips, Knees, Knee Large Joint Injection : Right Knee Coding Procedure code (CPT) selection complete Assessment & Plan Assessment & Plan (1) Localized osteoarthritis of right knee: Code(s): M17.11 - Unilateral primary osteoarthritis, right knee Category: Medical Plan Plan 1. Right Knee Arthritis The plan includes administering an injection to the right knee as the final intervention before the planned knee replacement surgery in January. The patient is advised to follow up in three months to reassess the knee's condition and prepare for the upcoming surgery. 2. Status Post Left Knee Replacement Z96.652 The patient reports improvement in the left knee post-replacement, with residual discomfort expected to resolve. No further intervention is planned at this time. 3. Dental Work Requiring Antibiotics Antibiotics will be prescribed to the patient for upcoming dental procedures, ensuring completion before the knee surgery. Discussion Notes During the visit, the patient and physician discussed the current status of the right knee, including the persistent pain and instability. The patient expressed his goal to have the knee replaced in January, Valerie confirmed that the current injection would be the last before surgery. The patient also mentioned his upcoming dental work, and I agreed to prescribe antibiotics to cover these procedures. The patient was informed about the follow-up plan in three months to reassess the knee and prepare for surgery. Medications: Changed From amoxicillin take 4 capsules 1 hr prior to dental procedure 2,000 mg (4 x 500 mg) PO ONCE 1 day 4 tabs 3RF To amoxicillin take 4 capsules 1 hr prior to dental procedure 2,000 mg (4 x 500 mg) PO ONCE PRN 20 tabs 1RF dental prophylaxis Coding Level of Care Code Est Pt Level 3 (82045) Diagnoses Localized osteoarthritis of right knee M17.11 CPT Codes Shoulders, Hips, Knees, - Knee Large Joint Injection : Right Knee ([id number])
[2025-08-04 08:22] VITALS: BMI 41.8
== END 2025-08-04 10:20 | disposition home or self-care (01) ==
LOC: HO.HOS 08:03
PROVIDERS: PCP Internal Medicine; Visit Provider Orthopaedic Surgery
DX: M17.11 Unilateral primary osteoarthritis, right knee (principal)
CPT/HCPCS: 20610; 99214

== ENCOUNTER → 2025-08-04 08:02 | Outpatient (BNVA) | payer MEDICARE, SELFPAY | PROVIDERS: PCP Internal Medicine; Visit Provider Orthopaedic Surgery | DX: M17.11 Unilateral primary osteoarthritis, right knee (principal); Z96.652 Presence of left artificial knee joint | CPT/HCPCS: 20610; 99212; J0665; J1100; J2003 ==